=== PATIENT | female | born 1975 | race Two or more races ===

== ENCOUNTER → 2020-03-07 15:03 | Outpatient (CLI) | payer MEDICAID, SELFPAY ==
--- NOTE | 2020-03-07 15:03 | MM_ITS ---
PROCEDURE: MM DIG SCREENING MAMM BI W/CAD Digital Breast Tomosynthesis Included CLINICAL INDICATION: screening There is no personal or family history of breast cancer. COMPARISON: This is a baseline exam, patient without complaints TECHNIQUE: Standard CC and MLO images and 3D Tomosynthesis was obtained. R2 CAD reviewed. FINDINGS: Moderately prominent fibroglandular densities are seen in the central portions of both breasts. There is a possible asymmetric nodular density upper-outer quadrant right breast only definitely appreciated on wilmar images. Recommend the patient return for spot compression views and ultrasound. A CAD marking deep within the right breast the CC view only was reviewed and shows no abnormality on the wilmar images. There are no suspicious microcalcifications. IMPRESSION: Moderate diffuse breast density with possible asymmetric lesion right breast BI-RAD Category: 0 Need Additional Imaging Evaluation FOLLOW-UP: IMM Immediate Follow-up Recommended (A letter has been sent to the patient regarding results of the study.) Dictated by: Dr. Norris Alejandro MD 03/08/2020 12:30 Dr. Norris Alejandro MD in [place] 03/08/2020 12:30
== END ==
PROVIDERS: PCP Emergency Medicine; Visit Provider Emergency Medicine
DX: Z12.31 Encounter for screening mammogram for malignant neoplasm of breast (principal)
CPT/HCPCS: 77063; 77067

== ENCOUNTER → 2020-03-20 13:50 | Outpatient (CLI) | payer MEDICAID, SELFPAY ==
--- NOTE | 2020-03-20 13:50 | US_ITS ---
PROCEDURE: US BREAST RT COMPLETE CLINICAL INDICATION: abn mamm COMPARISON: No exams were available for comparison FINDINGS: There are several small benign-appearing hypoechoic cystic lesions 1 at the 2 o'clock position near the nipple measuring 0.5 by 0.5 x 0.4 cm. There is a 2nd hypoechoic cystic lesion at the 9 o'clock position outer breast measuring 0.6 by 0.6 x 0.3 cm. There is a smaller hypoechoic cystic lesion at 9 o'clock position outer breast measuring 0.6 x 0.3 0.5 cm. However there is a solid lesion outer breast 10 o'clock position measuring 0.8 x 0.6 x 0.8 cm. This has rather homogeneous internal echogenicity but is almost as tall as wide and shows slight lobulation of the borders. IMPRESSION: Multiple benign-appearing cystic lesions however there is a solid lesion 10 o'clock position which corresponds in size and location to the nodular density seen on the recent mammogram and follow-up problem solving views and in view of the lobulation of the borders and appearance suggesting almost as tall as wide would recommend follow-up biopsy likely with ultrasound-guided technique. Dictated by: Dr. Norris Alejandro MD 03/25/2020 11:17 Dr. Norris Alejandro MD in [place] 03/25/2020 11:17
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
--- NOTE | 2020-03-20 13:50 | MM_ITS ---
PROCEDURE: MM DIG?MAMM DX?UNILAT?RT CAD Digital Breast?Tomosynthesis Included ?? CLINICAL INDICATION:?abn mamm ? COMPARISON: MG MM DIG SCREENING?MAMM BI W/CAD from 03/07/2020 US?US BREAST?RT COMPLETE from 03/20/2020 ?? TECHNIQUE: Below and CC views were obtained and 90 degree lateral view ?? FINDINGS: ?? The nodular density seen on recent mammogram is again noted not press out the spot views. This shows fairly well-defined borders measures approximately 1 cm in diameter. Ultrasound performed the same date shows a?hypoechoic lesion almost as tall as wide slight?lobulation of the borders. There is fairly homogeneous internal echogenicity. This likely is a?fibroadenoma however in view of its measurements being almost as tall as wide in slight?lobulation of the borders I would recommend biopsy likely with ultrasound guidance. IMPRESSION: Persistent nodule with slightly suspicious findings on ultrasound BI-RAD Category: 4 Suspicious Abnormality - Biopsy Considered FOLLOW-UP: BIO Biopsy Recommended ?? (A letter has been sent to the patient regarding results of the study.) ?? Dictated by: Dr. Norris Alejandro MD 03/25/2020 11:06 Dr. Norris Alejandro MD in?[place] 03/25/2020 11:06 DONA
== END ==
PROVIDERS: PCP Emergency Medicine; Visit Provider Emergency Medicine
DX: R92.8 Other abnormal and inconclusive findings on diagnostic imaging of breast (principal)
CPT/HCPCS: 76641; 77061; 77065; G0279

== ENCOUNTER → 2020-03-27 14:06 | Outpatient (CLI) | payer MEDICAID, SELFPAY ==
--- NOTE | 2020-03-27 14:06 | MR_ITS ---
PROCEDURE: MR CERVICAL SPINE WO CON ((3D volume MRI myelogram image set included) Referring Doctor: Yash Matt Patient Age:44Y CLINICAL INDICATION: neck pain Fall 1 year ago with neck and right arm pain. COMPARISON: No exams were available for comparison TECHNIQUE: Standard multiplanar multiecho sequences are performed without contrast. 3-D MIP and myelographic images are also rendered and reviewed 3D volume MRI myelogram image set included FINDINGS: Cranial cervical junction appears satisfactory. Cervical cord normal in caliber and signal but generous volume underlying osseous cervical canal and C2/3, C3/4, C4/5 disc intact with no significant findings at this level. Only question scant early uncovertebral joint hypertrophy to the left at C3/4-C4/5 level-negligible. The neural foramen remain widely patent at these levels. C5/6 and C6/7 with early degenerative disc changes and cervical spondylosis but slight disc space narrowing at each level with mild diffuse posterior osteophytic ridging. The disc osteophyte features however all are minimal and only slightly indent the thecal sac at both levels but of anterior marginal osteophytes at these levels more evident. In regards to right-sided pain of no a prominent neural foraminal encroachment nor disc herniation. Only perhaps scant spur spurring to the right C6/7. Unimpressive . May be some scant degenerative facet changes but these are unimpressive as well 3D MR myelogram image set shows generous volume thecal sac and cervical spinal canal. No significant epidural indentation upon thecal sac. There is overall good filling of nerve roots throughout.. Tiny perineural most of the right C7/T1 and less evident at C6/7, C5/6 Incidental note probable small right thyroid nodule 5-6 mm size the axial T2 weighted image IMPRESSION: No prominent findings C-spine. Only minor observations. Near negative the MRI C-spine. . Only hint of scant very early developing-cervical spondylosis C5/6 and C6/7. Features do not impinge upon the spinal canal..-only scant barely evident foraminal encroachment to the right C6/7 doubtful significance of significance . Suggestion new mild bilateral facet arthropathy otherwise. Dictated by: Calin Castle MD 03/31/2020 17:15 Calin Castle MD in [place] 03/31/2020 17:15
--- NOTE | 2020-03-27 14:06 | MR_ITS ---
PROCEDURE: MR LUMBAR SPINE WO CON (3D volume rendering myelogram image set included) Referring Doctor: Yash Matt Patient Age:44Y CLINICAL INDICATION: back pain Low back pain fell down stairs 1 years ago. But no prior exams COMPARISON: No previous lumbar studies MR MR CERVICAL SPINE WO CON from 03/27/2020 TECHNIQUE: Standard multiplanar multiecho sequences are performed without contrast. 3-D MIP and myelographic images are also rendered and reviewed 3D volume rendering myelogram image set included FINDINGS: Hypertrophy-are intact there is no good evidence of compression fracture L5/S1.: Degenerative disc space narrowing with minimal disc bulge/with scant spurring head injury of right and left foramen. Mild foraminal encroachment but mild facet hypertrophy, arthropathy L4/5.: Disc spaces fairly well maintained with only borderline disc space narrowing to the right... Mild asymmetric disc bulge which becomes most evident at and lateral to the right foramen. Mild right foraminal encroachment. Subtle effacement of thecal sac anteriorly to the right a...; Mild/moderate facet arthropathy, hypertrophy bilateral the. Suspect minor reactive endplate changes and possible Schmorl's node on to the right at L4/5 L3/4. Disc intact unremarkable scant facet arthropathy. L2/3 disc intact unremarkable neural foramen widely patent L1/2 disc intact well hydrated unremarkable with neural foramen widely patent T12/L1 disc intact unremarkable. Conus ends appropriately at L1 . No additional observations but 3D MR myelogram image set shows no prominent findings but shows only scant epidural indentation to the right at L4/5 the IMPRESSION: mild degenerative changes with no prominent findings lumbar spine No disc herniation; no good evidence of compression fracture.. The L4/5: Mild asymmetric disc bulge to the right at L4/5. Moderate question right foramen.. Mild facet hypertrophy.. Suggestion however reactive endplate changes to the right at L4/5.. Questionable small Schmorl's node inferior to the right at L4 inferior endplate L5/S1. Degenerative disc space narrowing, with minor foraminal encroachment/minor foraminal disc bulge the The Dictated by: Calin Castle MD 03/30/2020 18:07 Calin Castle MD in [place] 03/30/2020 18:07
== END ==
PROVIDERS: PCP Emergency Medicine; Visit Provider Emergency Medicine
DX: M54.2 Cervicalgia (principal); M54.9 Dorsalgia, unspecified; M54.5 Low back pain
CPT/HCPCS: 72141; 72148; 76376

== ENCOUNTER → 2020-04-03 10:01 | Outpatient (CLI) | payer MEDICAID, SELFPAY ==
--- NOTE | 2020-04-03 | MM_ITS ---
PROCEDURE: US BIOPSY BREAST RT CLINICAL INDICATION: abn mamm Suspicious right breast nodule COMPARISON: MG MM DIG SCREENING MAMM BI W/CAD from 03/07/2020 MG MM DIG MAMM DX UNILAT RT CAD from 03/20/2020 US US BREAST RT COMPLETE from 03/20/2020 MG MM CLIP PLACEMENT RT from 04/03/2020 FINDINGS: Technique: Following obtaining informed consent and time-out procedure under aseptic conditions and local anesthesia with 1 percent buffered lidocaine, with sonographic guidance and deeper anesthesia with lidocaine mixed with epinephrine, mammotome E needle was inserted into to the suspicious nodule at 10 o'clock in the right breast and multiple mammotome biopsies were obtained. Sterile stainless steel clip was then placed. The patient tolerated the procedure well without evidence of immediate complications and left radiology suite in stable condition. Mammogram clip placement: Post biopsy changes are present in the upper outer aspect of the right breast at the region of the previously noted nodule with clip present at this area. The nodule is much smaller. Pathology: Fibroepithelial lesion which may represent a fibroadenoma. Negative for atypia or malignancy. IMPRESSION: Successful sonographic guided mammotome biopsy of the right breast showing benign findings. Recommend six-month mammographic and sonographic follow-up per routine biopsy protocol. Dictated by: Otis Jhaveri MD 04/05/2020 09:35 Otis Jhaveri MD in [place] 04/05/2020 09:35
--- NOTE | 2020-04-03 10:06 | XR_ITS ---
PROCEDURE: XR KNEE RT 4V CLINICAL INDICATION: right knee pain COMPARISON: No exams were available for comparison FINDINGS: No fracture or dislocation. No lytic or blastic change. There is normal mineralization. Status post ACL repair. There is slight decrease in the joint space medially and at the patellofemoral with minimal spurring of the posterior patella Other findings:None. IMPRESSION: Prior ACL repair with mild osteoarthritic changes Dictated by: Otis Jhaveri MD 04/03/2020 18:24 Otis Jhaveri MD in [place] 04/03/2020 18:24
== END ==
PROVIDERS: PCP Emergency Medicine; Visit Provider Emergency Medicine
DX: R92.8 Other abnormal and inconclusive findings on diagnostic imaging of breast (principal); M25.561 Pain in right knee; N63.11 Unspecified lump in the right breast, upper outer quadrant
CPT/HCPCS: 19083; 73564; 77065; C2618

== ENCOUNTER → 2020-04-15 12:55 | Outpatient (CLI) | payer MEDICAID, SELFPAY ==
--- NOTE | 2020-04-15 12:55 | MR_ITS ---
PROCEDURE: MR KNEE RT WO CON CLINICAL INDICATION: right knee pain; evaluate for a meniscal tear prior acl reconstruction. entire knee swelling and instability. lateral and posterior knee pain. prior x-ray 04-03-20 COMPARISON: CR XR KNEE RT 4V from 04/03/2020 TECHNIQUE: Routine multiplanar multi echo sequences are performed without gadolinium enhancement. FINDINGS: Status post prior ACL repair. The graft peers intact. The PCL has an unremarkable appearance as does the medial collateral ligament and lateral ligamentous complex. Patellar tendon and quadriceps tendon are unremarkable. There are tricompartmental osteoarthritic changes. The lateral meniscus has an unremarkable appearance. Anterior horn and posterior horn of the medial meniscus is smaller than expected .. There is a nondisplaced longitudinal tear involving the posterior horn of the medial meniscus. The patellar cartilage is preserved. No significant knee joint effusion. IMPRESSION: 1. Status post ACL repair. No evidence of cruciate ligament tear. 2. Nondisplaced longitudinal tear posterior horn medial meniscus. The medial meniscus is smaller than expected both anteriorly and posteriorly. 3. Mild tricompartmental osteoarthritic change. Dictated by: Otis Jhaveri MD 04/16/2020 11:32 Otis Jhaveri MD in [place] 04/16/2020 11:32
== END ==
PROVIDERS: PCP Emergency Medicine; Visit Provider Orthopaedic Surgery
DX: M25.561 Pain in right knee (principal); G89.29 Other chronic pain
CPT/HCPCS: 73721

== ENCOUNTER 2020-05-03 15:00 | Outpatient (RCR) | payer MEDICAID, SELFPAY ==
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
== END 2020-05-03 15:05 | disposition home or self-care (01) ==
LOC: PT 15:00
PROVIDERS: PCP Emergency Medicine; Visit Provider Emergency Medicine
DX: M54.2 Cervicalgia (principal)
CPT/HCPCS: 97010; 97012; 97014; 97110; 97140; 97163; 97164; G0283

== ENCOUNTER → 2020-06-19 16:40 | Outpatient (CLI) | payer MEDICAID, SELFPAY ==
[2020-06-19 18:51] LABS: Amphetamine/Metha Screen,Urine Negative ng/ml (<1000)
[2020-06-19 18:52] LABS: Barbiturates Screen,Urine Negative ng/ml (<200); Benzodiazepines Screen,Urine Negative ng/ml (<200)
[2020-06-19 18:53] LABS: Cannabinoid Screen,Urine Positive ng/ml (<50)
[2020-06-19 19:34] LABS: Cocaine Screen,Urine Negative ng/ml (<300); Methadone Screen,Urine Negative ng/ml (<300)
[2020-06-19 19:35] LABS: Opiate Screen,Urine Negative ng/ml (<300)
[2020-06-19 19:36] LABS: Phencyclidine Screen,Urine Negative ng/ml (<25)
== END ==
PROVIDERS: Visit Provider Emergency Medicine
DX: M51.36 Other intervertebral disc degeneration, lumbar region (principal)
CPT/HCPCS: 80305

== ENCOUNTER → 2020-07-11 14:46 | Outpatient (POV) | payer MEDICAID, SELFPAY ==
[2020-07-11 15:12] VITALS: BP 121/74; PULSE 65; RESP 18; TEMP 36.3; O2SAT 98; BMI 26.4
--- NOTE | 2020-07-11 16:32 | HMH.PMCON ---
Assessment and Plan (1) DDD (degenerative disc disease), lumbar Status: Chronic Category: Medical Code(s): M51.36 - Other intervertebral disc degeneration, lumbar region - Assessment and plan all Dx Assessment and Plan for all problems:: We will schedule the patient for an L4-L5 lumbar epidural steroid injection. I do believe given her symptomology that this will be beneficial for her. I will follow-up with her after this reassess her symptoms at that time she has been instructed to call our office if she has any issues prior to her next appointment. Dr. Lee has reviewed this note and agrees with this plan of care. This note was dictated using voice recognition software and may contain errors or omissions HPI - Data of Consult Consult date: 07/11/20 Requesting Physician: Kateryna Johnson APRN Primary Care Provider: Yash Matt MD - Consult Narrative Reason for consult: Back pain, leg pain History of present illness: Ms. Orellana is a 45 year old female who presents today for consultation regards to her low back and leg pain. Patient has had pain for quite some time she rates it today a 6 out of 10. Patient has tried and failed medication management. She is interested in other ways to treat her pain. Patient does have an MRI showing degenerative disc disease along with disc bulge. Patient has issues with her low back and bilateral lower extremities. Patient and I had a long discussion in regards to injective therapy she is agreeable. She is not on any anticoagulation therapy. CC: Kateryna Johnson APRN [facility] History I have reviewed the patient's past medical history: Yes Medical History: Reports:: Depression, Gastroesophageal Reflux Disease(GERD) Denies:: Cancer, Diabetes Mellitus Type 1, Diabetes Mellitus Type 2, MRSA *Have you ever received a pneumonia vaccine?: Yes *Have you received a flu vaccine this season?: Yes Other Medical History: Reports: Arthritis, Other Laterality Cases: Right: Arthroscopy Knee Other Surgeries: Yes: Tubal Ligation, Other Amputation: No Fractures: No - *Social History Smoking Status: Current every day smoker Tobacco Type: e-cigarettes # Packs/Day (cigarettes): 1 Alcohol Intake: never Alcohol Intake Frequency:: 3 or more drinks per day Substance Use Type: former substance user, methamphetamine *Occupational Status:: other Housing: house Household Members: other *Travel in the last 8 weeks: None - Psychiatric History Pschychiatric History:: Reports:: Depression Family Hx:: Unable to obtain Review of Systems - Review of Systems ROS General: no recent weight change, no fever, no sleep disturbances Respiratory: no cough, no shortness of air, no recurring pulmonary infections Cardiovascular/Peripheral Vascular: No chest pain, No palpitations, no edema, no shortness of breath. Gastrointestinal: no new onset incontinence, normal bowel movements reported Genitourinary: no new onset incontinence Musculoskeletal: Back pain, leg pain Psychiatric: normal mood/ affect Neurological: [denies new onset weakness in extremities], [denies new onset balance issues] Meds Home Medications Medication Instructions Recorded Confirmed Type diclofenac sodium 1 % topical gel 2 g TOPICAL QID #100 g 02/16/20 06/19/20 Rx lidocaine 5 % topical patch 1 patch TOPICAL DAILY #30 each 02/16/20 06/19/20 Rx trazodone 50 mg tablet 50 mg PO HS PRN #90 tab 03/11/20 06/19/20 Rx cetirizine 10 mg tablet 10 mg PO DAILY #90 tab 06/05/20 06/19/20 Rx fluoxetine 20 mg capsule 20 mg PO BID #180 cap 06/05/20 06/19/20 Rx fluticasone propionate 50 1 spray INTRANASAL DAILY #16 g 06/05/20 06/19/20 Rx mcg/actuation nasal spray,suspension omeprazole 20 mg delayed 20 mg PO DAILY #90 tab 06/05/20 06/19/20 Rx release,disintegrating tablet gabapentin 800 mg tablet 800 mg PO TID #90 tab 06/19/20 06/19/20 Rx hydrocodone 5 mg-acetaminophen 325 1 tab PO BID PRN #60 tab 06/19/20 06/19/20 Rx mg t
== END ==
PROVIDERS: PCP Emergency Medicine; Visit Provider Clinical Nurse Specialist Family Health
DX: M51.36 Other intervertebral disc degeneration, lumbar region (principal)
CPT/HCPCS: 99202; G0463

== ENCOUNTER 2020-07-26 09:00 | Outpatient (RCR) | payer MEDICAID, SELFPAY ==
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
== END 2020-07-26 09:05 | disposition home or self-care (01) ==
LOC: PT 09:00
PROVIDERS: PCP Emergency Medicine; Visit Provider Emergency Medicine
DX: M47.812 Spondylosis without myelopathy or radiculopathy, cervical region (principal)
CPT/HCPCS: 97010; 97012; 97014; 97035; 97110; 97140; 97163; G0283

== ENCOUNTER 2020-07-26 09:30 | Outpatient (RCR) | payer MEDICAID, SELFPAY ==
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
== END 2020-07-26 09:35 | disposition home or self-care (01) ==
LOC: PT 09:30
PROVIDERS: PCP Emergency Medicine; Visit Provider Emergency Medicine
DX: M54.5 Low back pain (principal); M54.9 Dorsalgia, unspecified
CPT/HCPCS: 97163

== ENCOUNTER 2020-08-02 11:22 | Day surgery (SDC) | payer MEDICAID, SELFPAY ==
[2020-08-02 11:59] VITALS: BP 148/82; PULSE 66; RESP 18; TEMP 36.6; O2SAT 98; BMI 27.8
[2020-08-02 12:25] VITALS: BP 122/78; PULSE 88; RESP 18; O2SAT 98
[2020-08-02 12:27] VITALS: BP 125/78; PULSE 89; RESP 18; O2SAT 99
--- NOTE | 2020-08-02 12:29 | HMH.PMPROC ---
- Procedure Date: 08/02/20 Time: 12:29 Anesthesiologist:: Jean-Claude Lee MD Complications:: None Pre-procedure Diagnosis:: Degenerative disc disease of lumbar spine with lumbar radiculopathy symptoms Post-procedure Diagnosis:: Same Indications for Procedure:: This patient is a pleasant 45-year-old white female who we are treating for low back pain with lumbar radiculopathy symptoms. She has increasing pain in her back rating down her legs. Will do lumbar epidural steroid injection today to see if this helps with her pain symptoms. Procedure Details:: Informed consent was obtained and the risk and benefits of the procedure was explained to the patient. The patient was taken to the procedure room. The patient was placed prone on the procedure table. The patient was prepped and draped in sterile fashion. C-arm fluoroscopy was used to view the lumbar spine. Skin and subcutaneous tissues were anesthetized using lidocaine. I placed an 18-gauge epidural needle and advanced into the L4-L5 interspace using fluoroscopic guidance and [id number] to air. After confirmation of needle placement in the epidural space with dye I injected 2 mL of lidocaine 1.5% with Depo-Medrol 80 mg. Patient tolerated the procedure well with no complications. Plan and Disposition:: We will follow-up with her in 2 weeks. Will reevaluate symptoms at that time.
[2020-08-02 12:35] VITALS: BP 169/91; PULSE 57; RESP 20; O2SAT 98
== END 2020-08-02 12:40 | disposition home or self-care (01) ==
LOC: SC.PAINP 11:23
PROVIDERS: PCP Emergency Medicine; Visit Provider Anesthesiology
DX: M51.16 Intervertebral disc disorders with radiculopathy, lumbar region (principal); K21.9 Gastro-esophageal reflux disease without esophagitis; M19.90 Unspecified osteoarthritis, unspecified site; F32.9 Major depressive disorder, single episode, unspecified; Z88.2 Allergy status to sulfonamides
CPT/HCPCS: 62323; J1040; Q9966

== ENCOUNTER → 2020-08-13 17:19 | Outpatient (CLI) | payer MEDICAID, SELFPAY ==
[2020-08-13 18:21] LABS: Amphetamine/Metha Screen,Urine Negative ng/ml (<1000); Benzodiazepines Screen,Urine Negative ng/ml (<200)
[2020-08-13 18:22] LABS: Barbiturates Screen,Urine Negative ng/ml (<200)
[2020-08-13 18:23] LABS: Cannabinoid Screen,Urine Negative ng/ml (<50); Cocaine Screen,Urine Negative ng/ml (<300)
[2020-08-13 18:24] LABS: Methadone Screen,Urine Negative ng/ml (<300)
[2020-08-13 18:25] LABS: Opiate Screen,Urine Positive ng/ml (<300); Phencyclidine Screen,Urine Negative ng/ml (<25)
== END ==
PROVIDERS: Visit Provider Emergency Medicine
DX: M51.36 Other intervertebral disc degeneration, lumbar region (principal)
CPT/HCPCS: 80305

== ENCOUNTER → 2020-08-22 12:55 | Outpatient (POV) | payer MEDICAID, SELFPAY ==
[2020-08-22 13:09] VITALS: BP 124/70; PULSE 61; RESP 18; O2SAT 97; BMI 31.2
--- NOTE | 2020-08-22 13:25 | HMH.PAINSOAP ---
[facility] Pain Management SOAP Note Subjective:: Patient is a 45-year-old white female who presents today for follow-up after a lumbar epidural steroid injection. She has been treated for degenerative disc disease with lumbar radicular symptoms. Patient is complaining of low back pain bilaterally with radiation into her buttock and hips. It does go down into the right leg. She says her pain is worse at the right hip at this time. Her pain increases when she stands and walks and improves with sitting. She got 4 to 5 days of relief with her lumbar epidural steroid injection. Her pain has improved, however, she is still at a 5 out of 10. She does take Aleve and Zanaflex and continues with home stretching. She has undergone physical therapy in the past for greater than 6 weeks. She and her to palpation to her bilateral SI joints today. Review of Systems General: No recent weight changes, no fever, no sleep disturbances Respiratory: No cough, no shortness of air, no recurring pulmonary infections Cardiovascular/peripheral vascular: No chest pain, no palpitations, no edema, no shortness of breath Gastrointestinal: No new onset incontinence, normal bowel movements reported Genitourinary: No new onset incontinence Musculoskeletal: Low back pain with radiation into bilateral buttock and right hip and right leg Psychiatric: Normal mood/affect Neurological: [Denies weakness in extremities], [denies balance issues] Objective:: Physical exam General: Alert and oriented x3, no acute distress, pleasant and cooperative, [on room air] Lungs: Respirations even and unlabored, symmetrical chest expansion Eyes: PERRL Musculoskeletal: Flexion and extension of lumbar spine somewhat guarded secondary to pain, deep tendon reflexes normal, strength in upper and lower extremities [5/5], [abnormal gait noted] positive Harlan's test, positive distraction test, positive compression test Neurological: Speech clear, designer equal, no gross sensory deficit Assessment:: Degenerative disc disease lumbar spine with lumbar radiculopathy symptoms, sacroiliitis bilateral Plan:: Patient has gotten relief from her initial symptoms with the lumbar epidural steroid injection. She got 4 to 5 days of significant relief at about 80%, however, she does continue to have some pain. Her pain is worse with standing and walking. She is tender to palpation to her bilateral SI joints along with a positive Harlan's, compression, and distraction test today. We will schedule the patient for bilateral SI joint injections and see her back in the clinic afterwards to reevaluate her symptoms. She has been instructed to contact clinic if she has any concerns before her next appointment. Risks and benefits of the procedure have been explained to the patient. Patient would like to proceed with the procedure. Dr. Lee has reviewed this note and agrees with this plan of care. This note was dictated using voice recognition software and make contain errors or omissions. [facility] History I have reviewed the patient's past medical history: Yes Medical History: Reports:: Depression, Gastroesophageal Reflux Disease(GERD) Denies:: Cancer, Diabetes Mellitus Type 1, Diabetes Mellitus Type 2, MRSA, Seizures *Have you ever received a pneumonia vaccine?: No *Have you received a flu vaccine this season?: No Other Medical History: Reports: Arthritis, Other. Denies: Blood Transfusion Reaction Laterality Cases: Right: Arthroscopy Knee Other Surgeries: Yes: Tubal Ligation, Other Amputation: No Fractures: No - *Social History Smoking Status: Current every day smoker Tobacco Type: cigarettes # Packs/Day (cigarettes): 1 Alcohol Intake: never Alcohol Intake Frequency:: 3 or more drinks per day Substance Use Type: former substance user, methamphetamine *Occupational Status:: unemployed Housing: house Household Members: other *Travel in the last 8 weeks: None - Psychiatric History Pschychiatric Histo
== END ==
PROVIDERS: PCP Emergency Medicine; Visit Provider Clinical Nurse Specialist Family Health
DX: M51.16 Intervertebral disc disorders with radiculopathy, lumbar region (principal); M46.1 Sacroiliitis, not elsewhere classified
CPT/HCPCS: 99212; G0463

== ENCOUNTER 2020-08-30 13:37 | Day surgery (SDC) | payer MEDICAID, SELFPAY ==
[2020-08-30 13:50] VITALS: BP 115/59; PULSE 60; RESP 18; TEMP 36.7; O2SAT 99; BMI 27.8
[2020-08-30 13:59] VITALS: BP 140/71; PULSE 61; RESP 18; O2SAT 99
[2020-08-30 14:03] VITALS: BP 140/71; PULSE 62; RESP 18; O2SAT 99
--- NOTE | 2020-08-30 14:15 | P.PCN_ITS ---
- Procedure Date: 08/30/20 Time: 14:16 Anesthesiologist:: Jean-Claude Lee MD Complications:: None Pre-procedure Diagnosis:: Sacroiliitis Post-procedure Diagnosis:: Same Indications for Procedure:: Patient is a pleasant 45-year-old white female who we are treating for low back pain and bilateral hip pain. She did have lumbar epidural steroid injection which did not give her much relief of her pain symptoms. She does have positive SI joint compression test bilaterally she has a positive Harlan's test bilaterally. She has a positive distraction test bilaterally. She has a positive Christin test bilaterally. We will do bilateral SI joint injections today to see if this gives her relief of her pain symptoms. Procedure Details:: B/L SI joint injection under fluoroscopy Informed consent was obtained and the risks and benefits of the procedure was explained to the patient. The patient was taken to the procedure room and placed prone on the procedure table. The patient was prepped using ChloraPrep. The skin and subcutaneous tissues overlying the SI joints were anesthetized using lidocaine. I placed a 22-gauge needle first in the left SI joint and s econd in the right SI joint. Needle placement was confirmed with dye. After this we injected 5 mL bupivacaine 0.25% and Depo-Medrol 40 mg into each SI joint. Patient tolerated the procedure well with no complication. Plan and Disposition:: We will follow-up with her in 2 weeks. Will reevaluate her symptoms at that time.
[2020-08-30 14:27] VITALS: BP 124/58; PULSE 57; RESP 20; O2SAT 98
== END 2020-08-30 14:28 | disposition home or self-care (01) ==
LOC: SC.PAINP 13:39
PROVIDERS: PCP Emergency Medicine; Visit Provider Anesthesiology
DX: M46.1 Sacroiliitis, not elsewhere classified (principal); K21.9 Gastro-esophageal reflux disease without esophagitis; M19.90 Unspecified osteoarthritis, unspecified site; F32.9 Major depressive disorder, single episode, unspecified; Z72.0 Tobacco use; F41.9 Anxiety disorder, unspecified; Z88.2 Allergy status to sulfonamides
CPT/HCPCS: 27096; G0260; J1030; Q9966

== ENCOUNTER 2020-09-10 16:00 | Outpatient (RCR) | payer MEDICAID, SELFPAY ==
--- NOTE | 2020-08-28 14:43 | HMH.PTOPEV ---
PT Outpatient Evaluation Rehab PT Outpatient Evaluation Start: 08/28/20 14:14 Freq: Status: Active Protocol: Document 08/28/20 14:15 RYAN (Rec: 08/28/20 14:42 RYAN [id number]) Electronically Signed By Rodri Wolf, PT 08/28/20 14:15 Outpatient Therapy Subjective History Subjective History Pt reports h/o chronic LBP for ~5+ yrs. Pt reports this exacerbation started ~2 months ago, recent pain mngt injection 'just made me sore for 3 days', and reports being scheduled for another SI injection on 08/30/20. Pt reports reports lumbar region pain with referred pain into bilateral paraspinal mm., no radicular s/s reported. Chief Complaint Pain,Stiff,Weakness Symptom Type Ache,Sharp,Dull Symptoms Relieved By Rest/Positioning,Heat,OTC Meds ,Prescription Meds Symptoms Aggravated By Standing,Bending/Stooping, Physical Activity,Twisting, Walking,Lifting Prior Functional Limitations Lifting,Housework,Standing, Walking,Bending/Stooping Current Functional Limitations Lifting,Housework,Standing, Walking,Bending/Stooping Symptom Description Constant but Variable Level of pain today (0-10) 4 Pain scale - at its best (0-10) 4 Pain scale - at its worst (0-10) 9 Lumbopelvic Eval Posture Thoracic Spine Posture Standing Position Neutral Lumbar Spine Posture Standing Position Neutral Assistive device Assistive Devices None / NA Gait Observation General Gait Pattern Observation Antalgic Gait Palapation tenderness bilateral lumbar spinal tenderness Yes: 3/4 paraspinal tenderness Yes: 3/4 buttock tenderness Yes: 1-2/4 Lumbar/Sacral Palpation Findings Tenderness,Muscle Guarding Accessory Movement L-spine Vertebrae Accessory Movements Central P/A Mccoy that Elicit Symptoms L2 bilateral L3 bilateral L4 bilateral L5 bilateral Range of Motion Lumbar Spine Active Flexion Range of 0-45 Motion (degrees) Lumbar Spine Active Extension Range of 0-5 Motion (degrees) Left Lumbar Spine Lateral Flexion Active 0-10 Range of Motion (degrees) Right Lumbar Spine Lateral Flexion 0-15 Active Range of Motion (degrees) Lumbar Spine ROM Limitations Pain Manual Muscle Test Bi
== END 2020-09-10 16:05 | disposition home or self-care (01) ==
LOC: PT 16:00
PROVIDERS: PCP Emergency Medicine; Visit Provider Emergency Medicine
DX: M51.36 Other intervertebral disc degeneration, lumbar region (principal)
CPT/HCPCS: 97010; 97014; 97110; 97163; G0283

== ENCOUNTER → 2020-09-30 13:28 | Outpatient (POV) | payer MEDICAID, SELFPAY ==
[2020-09-30 13:33] VITALS: BP 134/72; PULSE 69; RESP 18; O2SAT 99; BMI 27.8
--- NOTE | 2020-09-30 14:08 | HMH.PAINSOAP ---
[facility] Pain Management SOAP Note Subjective:: Patient is a 45-year-old female who presents today for follow-up after bilateral SI joint injections. She is being treated for sacroiliitis bilaterally. Patient says that she got approximately 80% relief for 2 weeks. She does say she was in worse pain the first 2 to 3 days after the injection, however, she does say after the third day she began to feel relief. Her pain has returned, however. She rates her pain a 6 out of 10. She would like to undergo repeat bilateral SI injections. Patient and I did talk today about possible corner lock stabilization procedure in the future if she does get relief with bilateral SI injections. Patient is having pain in her low back area as well as into her bilateral hips. She has had a lumbar epidural steroid injection which did not give her any significant relief. She does have a positive Harlan's test along with a positive distraction and compression test today. She is tender to palpation to the area. She has tried and failed conservative therapies of physical therapy for more than 6 weeks and continues with home stretching and ice and heat therapies. Review of Systems General: No recent weight changes, no fever, no sleep disturbances Respiratory: No cough, no shortness of air, no recurring pulmonary infections Cardiovascular/peripheral vascular: No chest pain, no palpitations, no edema, no shortness of breath Gastrointestinal: No new onset incontinence, normal bowel movements reported Genitourinary: No new onset incontinence Musculoskeletal: Low back pain with radiation into bilateral hips Psychiatric: Normal mood/affect Neurological: [Denies weakness in extremities], [denies balance issues] Objective:: Physical exam General: Alert and oriented x3, no acute distress, pleasant and cooperative, [on room air] Lungs: Respirations even and unlabored, symmetrical chest expansion Eyes: PERRL Musculoskeletal: Flexion and extension of [] lumbar spine somewhat guarded secondary to pain, deep tendon reflexes normal, strength in upper and lower extremities [5/5], [abnormal gait noted], positive Harlan's test, positive compression test, positive distraction test Neurological: Speech clear, cloth finishing range operator equal, no gross sensory deficit Assessment:: Sacroiliitis bilateral Plan:: We will schedule the patient for repeat bilateral SI joint injections. Again, if she gets significant relief, she may be a corner lock candidate. We will see her back after her injections for reevaluation of symptoms. She was given [facility] educational information today. Risks and benefits of the procedure have been explained to the patient. Patient would like to proceed with the procedure. Possible side effects of corticosteroids have been discussed with the patient. Patient has been instructed to contact the clinic with any concerns before the next appointment. Dr. Lee has reviewed this note and agrees with this plan of care. This note was dictated using voice recognition software and make contain errors or omissions. [facility] History I have reviewed the patient's past medical history: Yes Medical History: Reports:: Depression, Gastroesophageal Reflux Disease(GERD) Denies:: Cancer, Diabetes Mellitus Type 1, Diabetes Mellitus Type 2, MRSA, Seizures *Have you ever received a pneumonia vaccine?: No *Have you received a flu vaccine this season?: No Other Medical History: Reports: Arthritis, Other. Denies: Blood Transfusion Reaction Laterality Cases: Right: Arthroscopy Knee Other Surgeries: Yes: Tubal Ligation, Other Amputation: No Fractures: No - *Social History Smoking Status: Never smoker Tobacco Type: cigarettes # Packs/Day (cigarettes): 1 Alcohol Intake: former Alcohol Intake Frequency:: 3 or more drinks per day Substance Use Type: former substance user, methamphetamine *Occupational Status:: unemployed Housing: house Household Members: other *Travel in the last 8 weeks:
--- NOTE | 2020-10-15 13:00 | PC.NURSE ---
Left Message of patient time change for injection on 10/15/20.
== END ==
PROVIDERS: PCP Emergency Medicine; Visit Provider Clinical Nurse Specialist Family Health
DX: M46.1 Sacroiliitis, not elsewhere classified (principal)
CPT/HCPCS: 99212; G0463

== ENCOUNTER → 2020-10-08 18:15 | Outpatient (CLI) | payer MEDICAID, SELFPAY ==
[2020-10-08 19:39] LABS: Amphetamine/Metha Screen,Urine Negative ng/ml (<1000); Barbiturates Screen,Urine Negative ng/ml (<200)
[2020-10-08 19:40] LABS: Benzodiazepines Screen,Urine Negative ng/ml (<200)
[2020-10-08 19:41] LABS: Cannabinoid Screen,Urine Negative ng/ml (<50); Cocaine Screen,Urine Negative ng/ml (<300)
[2020-10-08 19:42] LABS: Methadone Screen,Urine Negative ng/ml (<300); Opiate Screen,Urine Positive ng/ml (<300)
[2020-10-08 19:43] LABS: Phencyclidine Screen,Urine Negative ng/ml (<25)
== END ==
PROVIDERS: Visit Provider Emergency Medicine
DX: M51.36 Other intervertebral disc degeneration, lumbar region (principal)
CPT/HCPCS: 80305

== ENCOUNTER 2020-10-16 10:52 | Day surgery (SDC) | payer MEDICAID, SELFPAY ==
[2020-10-16 11:09] VITALS: BP 141/72; PULSE 62; RESP 18; TEMP 36.6; O2SAT 98; BMI 27.8
--- NOTE | 2020-10-16 12:02 | P.PCN_ITS ---
- Procedure Date: 10/16/20 Time: 12:11 Anesthesiologist:: Nany Wade MD Complications:: None Pre-procedure Diagnosis:: Sacroiliitis, chronic low back pain, bilateral hip pain Post-procedure Diagnosis:: Same Indications for Procedure:: Patient is a very pleasant 45-year-old white female who presents today with chronic low back pain and bilateral hip pain related to the above diagnosis. She has previously undergone bilateral SI joint injections in has experienced 80% pain relief for approximately 2 weeks. She would like to repeat undergo repeat injections today. She has tried and failed conservative treatment including oral pain medication and home stretching program for greater than 6 weeks. Plan for today is for the patient to undergo repeat bilateral SI joint injections under fluoroscopy. Procedure Details:: B/L SI joint injection under fluoroscopy Informed consent was obtained and the risks and benefits of the procedure was explained to the patient. The patient was taken to the procedure room and placed prone on the procedure table. The patient was prepped using ChloraPrep. The skin and subcutaneous tissues overlying the SI joints were anesthetized using lidocaine. I placed a 22-gauge needle first in the left SI joint and second in the right SI joint. Needle placement was confirmed with dye. After this we injected 5 mL bupivacaine 0.25% and Depo-Medrol 40 mg into each SI joint. Patient tolerated the procedure well with no complication. Plan and Disposition:: We will follow-up with this patient in 2 weeks. Will reevaluate pain symptoms at that time. The patient only receive very minimal or short-term pain relief with these injections we will further discuss the SI joint stabilization p rocedure next clinic visit.
[2020-10-16 12:17] VITALS: BP 148/76; PULSE 55; RESP 18; O2SAT 97
[2020-10-16 12:19] VITALS: BP 144/95; PULSE 56; RESP 18; O2SAT 96
[2020-10-16 12:40] VITALS: BP 150/93; PULSE 60; RESP 20; O2SAT 98
== END 2020-10-16 12:45 | disposition home or self-care (01) ==
LOC: SC.PAINP 10:54
PROVIDERS: PCP Emergency Medicine; Visit Provider Anesthesiology Pain Medicine
DX: M46.1 Sacroiliitis, not elsewhere classified (principal); M54.6 Pain in thoracic spine; G89.29 Other chronic pain; M25.551 Pain in right hip
CPT/HCPCS: 27096; G0260; J1030; Q9966

== ENCOUNTER → 2020-11-21 14:35 | Outpatient (POV) | payer MEDICAID, SELFPAY ==
[2020-11-21 15:00] VITALS: BP 131/81; PULSE 73; RESP 18; O2SAT 94; BMI 27.8
--- NOTE | 2020-11-21 16:32 | HMH.PAINSOAP ---
[facility] Pain Management SOAP Note Subjective:: Patient is a 45-year-old female who presents today for follow-up after bilateral SI joint injections. Patient was seen in my clinic on 10/16/2020. At that time, she did undergo injection therapy. She did have bilateral SI joint injections. Patient says that she got 2 weeks of relief. She got about 80% relief at that time. Her pain has returned. She has had injective therapy in the past for her SI joints and does get significant relief for about 2 weeks to 3 weeks. She is continue with home stretching. She also continue with anti-inflammatories and physical therapy for more than 6 weeks in the past patient's pain is a 4 out of 10 today. She would like to undergo repeat injections for her SI joints. She is tender to palpation to bilateral SI joints today. Review of Systems General: No recent weight changes, no fever, no sleep disturbances Respiratory: No cough, no shortness of air, no recurring pulmonary infections Cardiovascular/peripheral vascular: No chest pain, no palpitations, no edema, no shortness of breath Gastrointestinal: No new onset incontinence, normal bowel movements reported Genitourinary: No new onset incontinence Musculoskeletal: Low back pain with radiation into bilateral hip and buttock Psychiatric: [Normal mood/affect] Neurological: [Denies weakness in extremities], [denies balance issues] Objective:: Physical exam General: Alert and oriented x3, no acute distress, pleasant and cooperative, [on room air] Lungs: Respirations even and unlabored, symmetrical chest expansion Eyes: PERRL Musculoskeletal: Flexion and extension of [] lumbar [spine] somewhat guarded secondary to pain, strength in upper and lower extremities [5/5], [antalgic gait noted], positive Harlan's test, positive compression test, positive distraction test Neurological: Speech clear, [marbleizing machine tender equal], no gross sensory deficit Assessment:: Sacroiliitis?bilateral, low back pain Plan:: We will schedule patient for SI joint injections. Patient is in the past, getting 80% relief for up to 2 to 3 weeks. We will see her back in the clinic after her injections for reevaluation of symptoms. Risks and benefits of the procedure have been explained to the patient. Patient would like to proceed with the procedure. Possible side effects of corticosteroids have been discussed with the patient. Patient has been instructed to contact the clinic with any concerns before the next appointment. Dr. Lee has reviewed this note and agrees with this plan of care. This note was dictated using voice recognition software and make contain errors or omissions. [facility] History I have reviewed the patient's past medical history: Yes Medical History: Reports:: Depression, Gastroesophageal Reflux Disease(GERD) Denies:: Cancer, Diabetes Mellitus Type 1, Diabetes Mellitus Type 2, MRSA, Seizures *Have you ever received a pneumonia vaccine?: No *Have you received a flu vaccine this season?: No Other Medical History: Reports: Arthritis, Other. Denies: Blood Transfusion Reaction Laterality Cases: Right: Arthroscopy Knee Other Surgeries: Yes: Tubal Ligation, Other Amputation: No Fractures: No - *Social History Smoking Status: Current every day smoker Tobacco Type: cigarettes # Packs/Day (cigarettes): 1 Alcohol Intake: never Alcohol Intake Frequency:: 3 or more drinks per day Substance Use Type: former substance user, methamphetamine *Occupational Status:: unemployed Housing: house Household Members: other *Travel in the last 8 weeks: None - Psychiatric History Pschychiatric History:: Reports:: Depression Family Hx:: Unable to obtain
== END ==
PROVIDERS: PCP Emergency Medicine; Visit Provider Clinical Nurse Specialist Family Health
DX: M46.1 Sacroiliitis, not elsewhere classified (principal); M54.5 Low back pain
CPT/HCPCS: 99212; G0463

== ENCOUNTER → 2020-12-04 19:07 | Outpatient (CLI) | payer MEDICAID, SELFPAY ==
[2020-12-04 20:20] LABS: Amphetamine/Metha Screen,Urine Negative ng/ml (<1000)
[2020-12-04 20:21] LABS: Barbiturates Screen,Urine Negative ng/ml (<200); Benzodiazepines Screen,Urine Negative ng/ml (<200)
[2020-12-04 20:22] LABS: Cannabinoid Screen,Urine Positive ng/ml (<50)
[2020-12-04 20:23] LABS: Cocaine Screen,Urine Negative ng/ml (<300)
[2020-12-04 20:24] LABS: Methadone Screen,Urine Negative ng/ml (<300); Opiate Screen,Urine Positive ng/ml (<300)
[2020-12-04 20:25] LABS: Phencyclidine Screen,Urine Negative ng/ml (<25)
== END ==
PROVIDERS: Visit Provider Emergency Medicine
DX: Z79.899 Other long term (current) drug therapy (principal)
CPT/HCPCS: 80305

== ENCOUNTER 2020-12-06 11:15 | Day surgery (SDC) | payer MEDICAID, SELFPAY ==
[2020-12-06 11:24] VITALS: BP 101/64; PULSE 70; RESP 18; TEMP 36.4; O2SAT 98; BMI 27.8
[2020-12-06 11:54] VITALS: BP 109/63; PULSE 68; RESP 18; O2SAT 96
--- NOTE | 2020-12-06 11:54 | HMH.PMPROC ---
- Procedure Date: 12/06/20 Time: 11:54 Anesthesiologist:: Jean-Claude Lee MD Complications:: None Pre-procedure Diagnosis:: Sacroiliitis Post-procedure Diagnosis:: Same Indications for Procedure:: This patient is a pleasant 45-year-old female who we are treating for bilateral hip pain. She is tender over both SI joints. She has positive Harlan's test bilaterally. She has positive SI joint compression test bilaterally. She has a positive Christin test bilaterally. She has a positive distraction test bilaterally. We will plan on bilateral SI joint injections under fluoroscopy today to help with pain symptoms. Procedure Details:: B/L SI joint injection under fluoroscopy Informed consent was obtained and the risks and benefits of the procedure was explained to the patient. The patient was taken to the procedure room and placed prone on the procedure table. The patient was prepped using ChloraPrep. The skin and subcutaneous tissues overlying the SI joints were anesthetized using lidocaine. I placed a 22-gauge needle first in the left SI joint and second in the right SI joint. Needle placement was confirmed with dye. After this we injected 5 mL bupivacaine 0.25% and Depo-Medrol 40 mg into each SI joint. Patient tolerated the procedure well with no complication. Plan and Disposition:: We will follow-up with her in 2 weeks. Will reevaluate symptoms at that time.
[2020-12-06 11:55] VITALS: BP 112/86; PULSE 72; RESP 18; O2SAT 96
[2020-12-06 12:12] VITALS: BP 101/65; PULSE 61; RESP 20; O2SAT 98
== END 2020-12-06 12:13 | disposition home or self-care (01) ==
LOC: SC.PAINP 11:16
PROVIDERS: PCP Emergency Medicine; Visit Provider Anesthesiology
DX: M46.1 Sacroiliitis, not elsewhere classified (principal); K21.9 Gastro-esophageal reflux disease without esophagitis; M19.90 Unspecified osteoarthritis, unspecified site; F32.9 Major depressive disorder, single episode, unspecified; F41.9 Anxiety disorder, unspecified; Z88.2 Allergy status to sulfonamides; Z79.899 Other long term (current) drug therapy
CPT/HCPCS: 27096; G0260; J1030; Q9966

== ENCOUNTER → 2020-12-24 11:30 | Outpatient (POV) | payer MEDICAID, SELFPAY ==
[2020-12-24 11:45] VITALS: BP 150/99; PULSE 88; RESP 18; O2SAT 98; BMI 27.8
--- NOTE | 2020-12-24 11:59 | HMH.PAINSOAP ---
[facility] Pain Management SOAP Note Subjective:: Patient is a pleasant 45-year-old -[place] female who presents today for follow-up. She did undergo bilateral SI joint injections. She got significant relief 80% for about a week and a half. She reports to have had a fall, with return of pain. Patient says that she got in between 2 dogs that were fighting. She is noted to have a laceration to her right lower extremity, just above her ankle. She also has an area to her left steward. Patient does have photos of the area. She currently has bandages over the site. She denies any recent fever or drainage from the area. She did not go to the emergency room for fear that the animals would be taken from her. The patient says that her dog is typically very docile and is well mannered. Patient did not contact her primary care provider. The patient's pain is a 5 out of 10 to bilateral low back and bilateral buttock and hips. She does say that the injections gave her relief to her neck as well. She and I have discussed corner lock in the past, however, the patient says that if she undergoes corner lock, she will not continue to get relief to the neck as well. She has tried physical therapy for greater than 6 weeks and continues with home stretching. She is also taken anti-inflammatories in the past. She does take Wann as well as gabapentin prescribed by Dr. Matt. Patient's pain is worse with standing and walking and does improve somewhat with sitting. Review of Systems General: No recent weight changes, no fever, no sleep disturbances Respiratory: No cough, no shortness of air, no recurring pulmonary infections Cardiovascular/peripheral vascular: No chest pain, no palpitations, no edema, no shortness of breath Gastrointestinal: No new onset incontinence, normal bowel movements reported Genitourinary: No new onset incontinence Musculoskeletal: Low back pain with radiation into bilateral buttock, bilateral hips, and lower extremities, chronic neck pain Psychiatric: [Normal mood/affect] Neurological: [Denies weakness in extremities], [denies balance issues] Objective:: Physical exam General: Alert and oriented x3, no acute distress, pleasant and cooperative, [on room air] Lungs: Respirations even and unlabored, symmetrical chest expansion Eyes: PERRL Musculoskeletal: Flexion and extension of [spine] somewhat guarded secondary to pain, strength in upper and lower extremities [5/5], [antalgic gait noted], positive Harlan's test, positive compression test, positive distraction test, positive Thomas's test Neurological: Speech clear, [traffic control flagger equal], no gross sensory deficit Assessment:: Sacroiliitis bilateral, chronic neck pain Plan:: The patient and I have discussed corner lock as well as RFA to her bilateral SI joints. She gets relief with the SI injections to her neck as well. She feels the steroids give her significant relief of all of her pain to her spine. We did discuss that injective therapy can be performed to the neck as well if she does undergo corner lock. She would like to proceed with injective therapy once again to bilateral SI joints. Given the patient's laceration to her leg, she has been advised she will need to seek treatment to this area either by her primary care provider or emergency room. The laceration to the leg via photos appears significant. She denies having any fever, nausea, vomiting, diarrhea. She says she will follow up with her primary care provider regarding the dog bite to the left steward area. If the patient does get treatment and is cleared by her primary care provider, we can proceed with the bilateral SI injections. She does understand, however, if she is on antibiotic therapy or corticosteroids we will have to postpone the injection. Possible side effects of corticosteroids have been discussed with the patient. Risks and benefits of the procedure have been explained to the patient. Juma
== END ==
PROVIDERS: PCP Emergency Medicine; Visit Provider Clinical Nurse Specialist Family Health
DX: M46.1 Sacroiliitis, not elsewhere classified (principal); M54.2 Cervicalgia; G89.29 Other chronic pain
CPT/HCPCS: 99212; G0463

== ENCOUNTER → 2021-01-16 14:41 | Outpatient (POV) | payer MEDICAID, SELFPAY ==
[2021-01-16 14:57] VITALS: BP 99/77; PULSE 65; RESP 18; O2SAT 97; BMI 27.8
--- NOTE | 2021-01-16 15:12 | HMH.PAINSOAP ---
[facility] Pain Management SOAP Note Subjective:: Patient is a 45-year-old female who presents today. Patient with bilateral SI joint injections and was denied by her insurance. Patient has had 3 rounds of bilateral SI injections. She continues to have significant pain to her low back, bilateral buttock, bilateral hip and groin area. The pain is worse with standing and walking. Patient has tried physical therapy for more than 6 weeks and did run out of qualified days per her insurance with physical therapy. She got minimal relief during physical therapy. She has also tried anti-inflammatories and does take oral medications for pain management. The patient does have a positive Parker's test, thigh thrust test, compression test, and Gaenslen's test. She also has a positive Christin test and positive Thomas's test. The patient and I did discuss RFA versus corner lock procedure at last visit, however, she wanted to proceed with injective therapy once more before proceeding with any further interventional therapies. Unfortunately, the patient was denied by her insurance. According to the insurance company, the patient was not and an active exercise program. Patient has had physical therapy for more than 6 weeks and continues with home stretching. She does rate her pain at a 6 out of 10. She uses ice and heat therapies as well. Review of Systems General: No recent weight changes, no fever, no sleep disturbances Respiratory: No cough, no shortness of air, no recurring pulmonary infections Cardiovascular/peripheral vascular: No chest pain, no palpitations, no edema, no shortness of breath Gastrointestinal: No new onset incontinence, normal bowel movements reported Genitourinary: No new onset incontinence Musculoskeletal: Low back pain with radiation into bilateral buttock, hip, groin worse with standing and walking Psychiatric: [Normal mood/affect] Neurological: [Denies weakness in extremities], [denies balance issues] Objective:: Physical exam General: Alert and oriented x3, no acute distress, pleasant and cooperative Lungs: Respirations even and unlabored, symmetrical chest expansion Eyes: PERRL Musculoskeletal: Flexion and extension of lumbar [spine] somewhat guarded secondary to pain, [antalgic gait noted], positive thigh thrust, positive compression test, positive Christin test, positive Gaenslen's test, positive Parker's test, positive Thomas's test Neurological: Speech clear, no gross sensory deficit Assessment:: Bilateral sacroiliitis, low back pain Plan:: Patient is a 45-year-old female presenting today due to denial letter from her insurance company. We scheduled patient for bilateral SI joint injections. She was denied by her insurance. Unfortunately we will not be able to seek approval for repeat injection for 6 weeks. Patient I discussed taking prednisone for 5 days to see if this helps with the short-term pain until we can get her scheduled for the injections. She is uncertain that she wants to proceed with the corner lock or RFA. She has tried and failed conservative therapies of physical therapy for more than 6 weeks along with continued home stretching. She has tried anti-inflammatories as well as 3 rounds of bilateral SI injections for which she got at least 80% relief. She does get relief for 3 to 4 weeks. We will give patient prednisone 20 mg 1 tablet p.o. twice daily for 5 days. We will see her back in 1 month to possibly schedule repeat injections. Patient has been instructed to contact the clinic with any concerns before the next appointment. Dr. Lee has reviewed this note and agrees with this plan of care. This note was dictated using voice recognition software and make contain errors or omissions. [facility] History I have reviewed the patient's past medical history: Yes Medical History: Reports:: Depression, Gastroesophageal Reflux Disease(GERD) Denies:: Cancer, Diabetes Mellitus Type 1, Diabetes M
== END ==
PROVIDERS: Visit Provider Clinical Nurse Specialist Family Health
DX: M46.1 Sacroiliitis, not elsewhere classified (principal); M54.50 Low back pain, unspecified
CPT/HCPCS: 99212; G0463

== ENCOUNTER → 2021-02-03 21:22 | Outpatient (CLI) | payer MEDICAID, SELFPAY ==
[2021-02-03 22:40] LABS: Amphetamine/Metha Screen,Urine Negative ng/ml (<1000)
[2021-02-03 22:41] LABS: Barbiturates Screen,Urine Negative ng/ml (<200); Benzodiazepines Screen,Urine Negative ng/ml (<200)
[2021-02-03 22:42] LABS: Cannabinoid Screen,Urine Positive ng/ml (<50)
[2021-02-03 22:43] LABS: Cocaine Screen,Urine Negative ng/ml (<300)
[2021-02-03 22:44] LABS: Methadone Screen,Urine Negative ng/ml (<300)
[2021-02-03 22:45] LABS: Opiate Screen,Urine Positive ng/ml (<300)
[2021-02-03 22:47] LABS: Phencyclidine Screen,Urine Negative ng/ml (<25)
== END ==
PROVIDERS: Visit Provider Emergency Medicine
DX: Z79.899 Other long term (current) drug therapy (principal)
CPT/HCPCS: 80305

== ENCOUNTER → 2021-02-27 14:57 | Outpatient (POV) | payer MEDICAID, SELFPAY ==
[2021-02-27 15:06] VITALS: BP 124/68; PULSE 80; RESP 18; O2SAT 96; BMI 27.2
--- NOTE | 2021-02-27 15:18 | HMH.PAINSOAP ---
[facility] Pain Management SOAP Note Subjective:: Patient is a pleasant 45-year-old who is here today for follow-up. Patient is currently being treated for bilateral sacroiliitis. Patient has had 3 rounds of bilateral SI injections that provided her about 80 to 90% relief. However, this has not lasted her. We have tried to schedule her for another bilateral injection but insurance has denied her. Patient has tried and failed conservative therapies such as oral medication, physical therapy, and at home exercises for greater than 6 weeks. Patient has positive Harlan, positive meng's, positive compression and distraction test. She denies any side effects from any of these medications. She denies any changes to the location and type of pain. She rates her pain as 5 out of 10 today. Patient is also being managed with gabapentin 800 mg 3 times a day and [place]me 10/325 mg 3 times a day that is prescribed by Dr. Matt. Liza number is [phone] with an active morphine equivalent of 30. Review of Systems General: No recent weight changes, no fever, no sleep disturbances Respiratory: No cough, no shortness of air, no recurring pulmonary infections Cardiovascular/peripheral vascular: No chest pain, no palpitations, no edema, no shortness of breath Gastrointestinal: No new onset incontinence, normal bowel movements reported Genitourinary: No new onset incontinence Musculoskeletal: Bilateral hip pain Psychiatric: [Normal mood/affect] Neurological: [Denies weakness in extremities], [denies balance issues] Objective:: Physical exam General: Alert and oriented x3, no acute distress, pleasant and cooperative Lungs: Respirations even and unlabored, symmetrical chest expansion Eyes: PERRL Musculoskeletal: Bilateral hips: +harlan, +meng's, +compression and +distraction, worse on the left Neurological: Speech clear, no gross sensory deficit Assessment:: Bilateral sacroiliitis, low back pain Plan:: We will schedule the patient for a left cornerloc procedure. We will obtain pelvic and bilateral hip x-rays. Risk and benefits of this procedure has been discussed with the patient. Patient is currently not on blood thinners. Risks and benefits of the medication have been explained in detail to the patient. The patient does understand the risk of dependence on the medication when given over a prolonged period. Patient has been advised of risks of oversedation with the prescribed medication. Narcan has been offered to the paitent in the event of oversedation. Patient has been advised that a family member should also be educated regarding administration of Narcan. The patient has been advised to consult with his/her primary care provider and pharmacist regarding drug-drug interaction of medications currently prescribed. Patient has been prescribed a controlled substance after being counseled on the medication, medication safety, and possible side effects. LIZA report has been obtained and reviewed prior to prescription and found to be appropriate. Opioid contract was reviewed and signed by the patient, and that they have agreed to all of the terms set forth by our compliance program. Patient has been instructed to contact the clinic with any concerns before the next appointment. Dr. Lee has reviewed this note and agrees with this plan of care. This note was dictated using voice recognition software and make contain errors or omissions. [facility] History Medical History: Reports:: Depression, Gastroesophageal Reflux Disease(GERD) Denies:: Cancer, Diabetes Mellitus Type 1, Diabetes Mellitus Type 2, MRSA, Seizures *Have you ever received a pneumonia vaccine?: No *Have you received a flu vaccine this season?: No Other Medical History: Reports: Arthritis, Other. Denies: Blood Transfusion Reaction Laterality Cases: Right: Arthroscopy Knee Other Surgeries: Yes: Tubal Ligation, Other Amputation: No Fractures: No - *Social History Sm
== END ==
PROVIDERS: Visit Provider Clinical Nurse Specialist Family Health
DX: M46.1 Sacroiliitis, not elsewhere classified (principal); M54.50 Low back pain, unspecified
CPT/HCPCS: 72202; 73502; 99212; G0463

== ENCOUNTER → 2021-02-27 15:17 | Outpatient (CLI) | payer MEDICAID, SELFPAY ==
--- NOTE | 2021-02-27 15:20 | XR_ITS ---
PROCEDURE: XR HIP RT 2-3V W/PELVIS CLINICAL INDICATION: HIP/BACK PAIN COMPARISON: No exams were available for comparison FINDINGS: No fracture or dislocation is evident. No significant degenerative change. No lytic or blastic change. Unremarkable soft tissues. IMPRESSION: No acute findings. Dictated by: Otis Jhaveri MD 02/27/2021 16:56 Otis Jhaveri MD in [place] 02/27/2021 16:56
--- NOTE | 2021-02-27 15:20 | XR_ITS ---
PROCEDURE: XR SACROILIAC JOINT BI MIN 3V CLINICAL INDICATION: HIP/BACK PAIN COMPARISON: No exams were available for comparison FINDINGS: No fracture or dislocation. No lytic or blastic change. There is normal mineralization. There is minimal spurring along the inferior aspect of both SI joints. The SI joints are widely patent without sclerosis. IMPRESSION: Minimal degenerative change of the SI joints. Dictated by: Otis Jhaveri MD 02/27/2021 17:09 Otis Jhaveri MD in [place] 02/27/2021 17:09
--- NOTE | 2021-02-27 15:20 | XR_ITS ---
PROCEDURE: XR HIP LT 2-3V W/PELVIS CLINICAL INDICATION: HIP/BACK PAIN COMPARISON: No exams were available for comparison FINDINGS: No fracture or dislocation is evident. No significant degenerative change. No lytic or blastic change. Unremarkable soft tissues. IMPRESSION: No acute findings. Dictated by: Otis Jhaveri MD 02/27/2021 17:08 Otis Jhaveri MD in [place] 02/27/2021 17:08
== END ==
PROVIDERS: PCP Emergency Medicine; Visit Provider Clinical Nurse Specialist Family Health
DX: M53.3 Sacrococcygeal disorders, not elsewhere classified (principal); M25.552 Pain in left hip; M25.551 Pain in right hip
CPT/HCPCS: 72202; 73502

== ENCOUNTER → 2021-04-02 18:21 | Outpatient (CLI) | payer MEDICAID, SELFPAY ==
[2021-04-02 19:36] LABS: Barbiturates Screen,Urine Negative ng/ml (<200)
[2021-04-02 19:37] LABS: Benzodiazepines Screen,Urine Negative ng/ml (<200)
[2021-04-02 19:38] LABS: Amphetamine/Metha Screen,Urine Negative ng/ml (<1000); Methadone Screen,Urine Negative ng/ml (<300)
[2021-04-02 19:39] LABS: Cannabinoid Screen,Urine Negative ng/ml (<50); Cocaine Screen,Urine Negative ng/ml (<300)
[2021-04-02 19:40] LABS: Opiate Screen,Urine Positive ng/ml (<300)
[2021-04-02 19:41] LABS: Phencyclidine Screen,Urine Negative ng/ml (<25)
== END ==
PROVIDERS: Visit Provider Emergency Medicine
DX: Z79.899 Other long term (current) drug therapy (principal)
CPT/HCPCS: 80305

== ENCOUNTER → 2021-04-15 15:02 | Outpatient (CLI) | payer MEDICAID, SELFPAY ==
[2021-04-15 15:53] LABS: Hematocrit 41.4 % (37.0-47.0); Hemoglobin 13.6 g/dL (12.2-16.2)
[2021-04-15 17:58] LABS: Thyroid Stimulating Hormone 0.83 uIU/mL (0.465-4.68)
[2021-04-17 08:16] LABS: FSH 6.2 mIU/mL (.)
== END ==
PROVIDERS: Visit Provider Obstetrics & Gynecology
DX: N93.8 Other specified abnormal uterine and vaginal bleeding (principal)
CPT/HCPCS: 36415; 83001; 84443; 85014; 85018

== ENCOUNTER → 2021-04-24 15:16 | Outpatient (CLI) | payer MEDICAID, SELFPAY ==
--- NOTE | 2021-04-24 15:16 | MM_ITS ---
PROCEDURE INFORMATION: Exam: MG Bilateral Screening 3D Mammography Exam date and time: 04/24/2021 3:16 PM Age: 45 years old Clinical indication: Encounter for screening mammogram for malignant neoplasm of breast TECHNIQUE: Imaging protocol: Bilateral Screening tomosynthesis and 2D mammography including computer-aided detection (CAD) when performed. COMPARISON: 1. MG MM CLIP PLACEMENT RT 04/03/2020 2:17 PM 2. MG MM DIG MAMM DX UNILAT RT CAD 03/20/2020 1:50 PM FINDINGS: MAMMOGRAPHY: Breast composition: The breast tissue is heterogeneously dense, which may obscure small masses. Mass: None. Architectural distortion: None. Calcifications: No suspicious calcifications. Asymmetric density: None. Skin thickening: None. Axillary adenopathy: None. IMPRESSION: No mammographic evidence of malignancy. Annual screening is recommended unless otherwise clinically indicated. ASSESSMENT: BI-RADS Category 1: Negative
== END ==
PROVIDERS: PCP Emergency Medicine; Visit Provider Obstetrics & Gynecology
DX: Z12.31 Encounter for screening mammogram for malignant neoplasm of breast (principal)
CPT/HCPCS: 77063; 77067

== ENCOUNTER → 2021-06-16 12:47 | Outpatient (CLI) | payer MEDICAID, SELFPAY ==
[2021-06-16 14:41] LABS: Chloride 104 mmol/L (98-107); Sodium 136 mmol/L (136-145)
[2021-06-16 14:42] LABS: Potassium 4.6 mmoL/L (3.5-5.1)
[2021-06-16 14:45] LABS: Anion Gap 7.6 mEq/L (5-15); Blood Urea Nitrogen 12 mg/dl (7-17); Calcium 8.6 mg/dl (8.4-10.2); Carbon Dioxide 29 mmol/L (22.0-30.0); Estimated Glomerular Filt Rate 78 ml/min (>60); GFR (African American) 94 ML/MIN (>60); Glucose 103 mg/dl (74-100)
[2021-06-16 15:00] LABS: Basophils # 0.1 K/mm3 (0-0.2); Basophils % 0.6 % (0.1-2.0); Eosinophils # 0.4 K/mm3 (0.0-0.4); Eosinophils % 4.2 % (0.1-12.0); Hematocrit 36.9 % (37.0-47.0); Hemoglobin 11.7 g/dL (12.2-16.2); Lymphocytes # 2.6 K/mm3 (0.7-4.5); Lymphocytes % 25.3 % (10-50); Mean Corpuscular HGB Conc 31.7 g/dL (31.8-35.4); Mean Corpuscular Volume 91.4 fl (81-99); Mean Platelet Volume 8.8 fl (7.4-10.4); Monocytes # 0.5 K/mm3 (0.1-1.0); Monocytes % 4.4 % (1.7-9.3); Neutrophils # 6.8 K/mm3 (1.8-7.8); Neutrophils % 65.6 % (37.0-80.0); Platelet Count 282 K/mm3 (142-424); Red Blood Count 4.03 M/mm3 (4.20-5.40); Red Cell Distribution Width 13.8 % (11.5-17.5); White Blood Count 10.4 K/mm3 (4.8-10.8)
[2021-06-16 15:07] LABS: HCG Qualitative, Serum Negative (Negative)
== END ==
PROVIDERS: Visit Provider Anesthesiology
DX: Z01.812 Encounter for preprocedural laboratory examination (principal); Z11.52 Encounter for screening for COVID-19; M53.3 Sacrococcygeal disorders, not elsewhere classified
CPT/HCPCS: 36415; 80048; 84703; 85025; C9803; U0003; U0005

== ENCOUNTER 2021-06-17 11:19 | Day surgery (SDC) | payer MEDICAID, SELFPAY ==
[2021-06-16 11:09] VITALS: BMI 27.1
[2021-06-17] VITALS (10 sets, daily range): BP systolic 124–148; BP diastolic 71–86; PULSE 48–84; RESP 12–18; TEMP 36.4–43; O2SAT 93–98
--- NOTE | 2021-06-17 15:21 | HMH.OPNOTE ---
Date of procedure: 06/17/21 Pre-op Diagnosis:: Left sacroiliitis Post-op Diagnosis:: Same Procedure performed:: Left-sided SI joint stabilization with a corner lock system Surgeon:: Nany Wade MD DICER OPERATOR:: Sergio Espinoza Anesthesia: GETA Estimated blood loss (mL): 50 Clinical Note:: Patient is a very pleasant 46-year-old white female who presents today with chronic left-sided low back and hip pain related to the above diagnosis. She is trialed and failed conservative treatment getting oral pain medications, injection therapy, and home stretching program for greater than 6 weeks. She has now exhausted all conservative measures. The plan for today is for the patient to undergo left-sided SI joint stabilization of the Cornerloc system. Operative findings:: n/a Operative note:: Informed consent was obtained and the risk and benefits of the procedure was explained to the patient. Patient was taken to the operating room placed prone on the procedure table. Patient was prepped and draped in sterile fashion. A lateral view of the sacrum with C-arm was taken to make sure it was out of anteversion. We then did an oblique view of the right sacroiliac joint. We lined up the anterior and posterior sides of the joint to achieve a [place] . A line was drawn on the skin with the SI joint. The superior and inferior aspect of the joint were anesthetized using lidocaine. The superior and inferior aspect of the joint were marked off. 1 cm medial and 1 cm superiorly into the upper quadrant and 1 cm medial and 1 cm distal a 1 1/2 cm longitudinal incisions were made through the skin and subcutaneous tissues. Guidepins were then placed superior and inferior at a 90 degree angle to each other under C-arm guidance through the incision was made into the superior third and inferior third of the SI joint. Lateral C-arm view was then taken to check the depth of the pins into the SI joint. On the lateral view the joint finder was placed over the guidepin into the appropriate position. The working cannula retractor was then placed over the joint finder into the SI joint into the appropriate position and depth. The joint finder and guidepin were removed. The SI joint was drilled to remove cartilage and to get into the subchondral bone of the sacrum and ilium. The broach was then used to prepare a triangular groove into both the sacrum and ilium for insertion of stabilization grafts. A collagen spine was then placed into the prepared space and the stabilization graft was placed. This was done both superiorly inferiorly into the SI joint. The cannulated retractor was removed. The incisions were then closed with 2-0 Vicryl followed by colt. Dressings were placed and the patient was taken recovery in stable condition. Patient tolerated the procedure well with no complications. Disposition: We will follow-up with this patient in 1 week for wound check and in 2 weeks for staple removal. I will prescribe the mycin 300 mg 1 tablet 3 times daily for 7 days #21 and hydrocodone 5/325 1 tablet p.o. 4 to 6 hours as needed for pain control #25. Tyree and prior drug screens were reviewed and appropriate. Condition: stable Disposition: PACU Complications:: None
--- NOTE | 2021-06-17 16:28 | P.PN_ITS ---
[facility] Anesthesia Checklist - Structural Data Admitted From: Home Planned Operative Procedure/s: sacroilliac joint fusion Consent for Planned Operative Procedure(s) Verified: Yes - Additional verifications Anesthesia Reactions: No Hx Blood Transfusions: No Blood Transfusion Reaction: No - Airway Assessment C-Spine Mobility Assessed: Yes TMJ Mobility Assessed: Yes Dentition: Edentulous - Neurological Assessment Level of Consciousness: Awake, Alert, Appropriate - Anesthesia Plan Anesthesia Risk discussed: Yes Anesthesia Plan: Verified ASA Class: II Anesthesia Type: MAC [facility] History I have reviewed the patient's past medical history: Yes Medical History: Reports:: Depression, Gastroesophageal Reflux Disease(GERD) Denies:: Cancer, Diabetes Mellitus Type 1, Diabetes Mellitus Type 2, Internal Pacemaker, MRSA, Seizures *Have you ever received a pneumonia vaccine?: No *Have you received a flu vaccine this season?: No Other Medical History: Reports: Arthritis, Other. Denies: Blood Transfusion Idalia ction Anesthesia experience/problems:: none Laterality Cases: Right: Arthroscopy Knee, Breast Biopsy Other Surgeries: Yes: Tubal Ligation, Other. No: Pacemaker Amputation: No Fractures: No - *Social History Last grade of school completed: 11th or 12th Smoking Status: Current every day smoker Tobacco Type: cigarettes # Packs/Day (cigarettes): 1 Alcohol Intake: former Alcohol Intake Frequency:: 3 or more drinks per day Substance Use Type: former substance user, methamphetamine *Occupational Status:: unemployed Housing: house Household Members: other *Travel in the last 8 weeks: None - Psychiatric History Pschychiatric History:: Reports:: Depression Family Hx:: Cancer, Diabetes, Heart Attack
--- NOTE | 2021-06-17 16:29 | HMH.ANESI ---
[facility] Anesthesia Record Part I Intake, IV Amount: 800 Estimated blood loss (mL): 50 Urine output (mL): 0 Blood Pressure: 148/78 SaO2: 97 Pulse Rate: 53 Respiratory Rate: 12 Temperature: 97.8 F Patient is:: Awake, Stable Stable to PACU at:: 16:25
--- NOTE | 2021-06-17 16:58 | SUR.PHASEI ---
1655- detailed report given to dee correa in post op. Pt transported to post op by dee correa in stable condition
--- NOTE | 2021-06-18 13:55 | HMH.ANESII ---
[facility] Anesthesia Record Part II Discharge Time: 16:55 Destination: Surgical Day Care (OP Surgery) PACU nurse assessment reviewed?: Yes Patient Condition:: Good Anesthesia Complications:: None Swallowing reflex intact?: Yes Cyanosis?: No Blood Pressure: 124/73 Pulse Rate: 48 Temperature: 97.8 F Mental Status: Alert & Oriented Pain level:: 3 Nausea and/or vomitting:: None Intake, IV Amount: 0
[2021-06-18 13:56] VITALS: BP 124/73; PULSE 48; TEMP 36.6
== END 2021-06-17 17:30 | disposition home or self-care (01) ==
LOC: OR 11:20
PROVIDERS: PCP Emergency Medicine; Visit Provider Anesthesiology Pain Medicine
PROC: (CPT 27280; principal; 2021-06-17 12:45)
DX: M46.1 Sacroiliitis, not elsewhere classified (principal); K21.9 Gastro-esophageal reflux disease without esophagitis; F32.A Depression, unspecified; M19.90 Unspecified osteoarthritis, unspecified site; Z72.0 Tobacco use; Z80.9 Family history of malignant neoplasm, unspecified; Z83.3 Family history of diabetes mellitus; Z82.3 Family history of stroke; Z88.2 Allergy status to sulfonamides; Z79.899 Other long term (current) drug therapy
CPT/HCPCS: 27280; 96374; C1713; J2405; J2710; J3370

== ENCOUNTER → 2021-07-07 08:53 | Outpatient (POV) | payer MEDICAID, SELFPAY ==
[2021-07-07 09:48] VITALS: BP 117/68; PULSE 73; RESP 18; TEMP 36.2; O2SAT 98; BMI 27.1
--- NOTE | 2021-07-07 10:36 | P.CONS_ITS ---
[facility] Pain Management SOAP Note Subjective:: Patient is a pleasant 46-year-old female who presents today for 3 week follow-up after a left sided SI joint stabilization procedure with the Cornerloc system on June 18, 2019. Patient has been doing well with this procedure. She has had 80 to 90% relief. Patient states that she has been able to increase her activity since her procedure. Rates pain today as 3 out of 10. We plan to remove her sutures today. Patient is also being managed with [place] 10 mg 4 times a day and gabapentin 800 mg 4 times a day that is prescribed by Dr. Matt. Patient denies any side effects from his medications. [facility] #[phone] with an active morphine equivalent of 40. Review of Systems: General: No recent weight changes, no fever, no sleep disturbances Respiratory: No cough, no shortness of air, no recurring pulmonary infections Cardiovascular/peripheral vascular: No chest pain, no palpitations, no edema, no shortness of breath Gastrointestinal: No new onset incontinence, normal bowel movements reported Genitourinary: No new onset incontinence Musculoskeletal: Improving left hip pain Psychiatric: [Normal mood/affect] Neurological: [Denies weakness in extremities], [denies balance issues] Objective:: Physical Exam: General: Alert and oriented x3, no acute distress, pleasant and cooperative, [on room air] Lungs: Respirations even and unlabored, symmetrical chest expansion Eyes: PERRL Musculoskeletal: Increased range of motion of the left hip Skin: Surgical incisions are healing well and well approximated. There is no drainage, erythema, and swelling. Neurological: Speech clear, no gross sensory deficit Assessment:: Status post left SI joint stabilization procedure Degenerative disc disease of lumbar spine Plan:: Patient has been doing well after the left SI joint stabilization procedure. Patient denies any issues or any worsening pain. We remove her colt today. Surgical incisions are healing well and well approximated. There is no drainage, erythema, and swelling. We will follow with this patient in 4 weeks. Patient has been instructed to contact the clinic with any concerns before the next appointment. Dr. Lee has reviewed this note and agrees with this plan of care. This note was dictated using voice recognition software and make contain errors or omissions. [facility] History Medical History: Reports:: Depression, Gastroesophageal Reflux Disease(GERD) Denies:: Cancer, Diabetes Mellitus Type 1, Diabetes Mellitus Type 2, Internal Pacemaker, MRSA, Seizures *Have you ever received a pneumonia vaccine?: Yes *Have you received a flu vaccine this season?: No Other Medical History: Reports: Arthritis, Other. Denies: Blood Transfusion Reaction Laterality Cases: Right: Arthroscopy Knee, Breast Biopsy Other Surgeries: Yes: Tubal Ligation, Other. No: Pacemaker Amputation: No Fractures: No - *Social History Smoking Status: Current every day smoker Tobacco Type: cigarettes # Packs/Day (cigarettes): 1 Alcohol Intake: former Alcohol Intake Frequency:: 3 or more drinks per day Substance Use Type: former substance user, methamphetamine *Occupational Status:: unemployed Housing: house Household Members: other *Travel in the last 8 weeks: None - Psychiatric History Pschychiatric History:: Reports:: Depression Family Hx:: Cancer, Diabetes, Heart Attack
== END ==
PROVIDERS: Visit Provider Student in an Organized Health Care Education/Training Program
DX: M51.36 Other intervertebral disc degeneration, lumbar region (principal); Z98.890 Other specified postprocedural states
CPT/HCPCS: 99212; G0463

== ENCOUNTER → 2021-07-28 12:36 | Outpatient (CLI) | payer MEDICAID, SELFPAY ==
[2021-07-28 19:14] LABS: Barbiturates Screen,Urine Negative ng/ml (<200)
[2021-07-28 19:15] LABS: Amphetamine/Metha Screen,Urine Negative ng/ml (<1000); Benzodiazepines Screen,Urine Negative ng/ml (<200)
[2021-07-28 19:16] LABS: Cannabinoid Screen,Urine Negative ng/ml (<50)
[2021-07-28 19:17] LABS: Cocaine Screen,Urine Negative ng/ml (<300); Methadone Screen,Urine Negative ng/ml (<300)
[2021-07-28 19:18] LABS: Opiate Screen,Urine Positive ng/ml (<300)
[2021-07-28 19:19] LABS: Phencyclidine Screen,Urine Negative ng/ml (<25)
== END ==
PROVIDERS: PCP Emergency Medicine; Visit Provider Emergency Medicine
DX: Z79.899 Other long term (current) drug therapy (principal)
CPT/HCPCS: 80305

== ENCOUNTER → 2021-08-07 13:50 | Outpatient (POV) | payer MEDICAID, SELFPAY ==
[2021-08-07 13:57] VITALS: BP 149/87; PULSE 56; RESP 18; TEMP 36.7; O2SAT 97; BMI 27.1
--- NOTE | 2021-08-07 14:23 | HMH.PAINSOAP ---
[facility] Pain Management SOAP Note Subjective:: Patient is a pleasant 46-year-old female presents today for follow-up. Patient is currently being treated for bilateral sacroiliitis. She had a left-sided SI joint stabilization procedure with the Cornerloc system on June 17, 2021. She has been doing significantly well with this system. She continues to have relief denies any issues after the procedure. Patient has been able to increase her activity since the procedure. She presents today wanting to know if we can schedule her for the right-sided stabilization procedure. Patient has had 2-3 bilateral SI injection that provided 90 to 100% relief in the past. She has tried and failed conservative therapies such as oral medication, physical therapy, and at home exercises for greater than 6 weeks. She rates her pain today as 3 out of 10. She is currently prescribed [place] 10 mg 4 times a day and gabapentin 800 mg 4 times a day by Dr. Matt. Tyree [phone] with an active morphine equivalent of 40. Review of Systems: General: No recent weight changes, no fever, no sleep disturbances Respiratory: No cough, no shortness of air, no recurring pulmonary infections Cardiovascular/peripheral vascular: No chest pain, no palpitations, no edema, no shortness of breath Gastrointestinal: No new onset incontinence, normal bowel movements reported Genitourinary: No new onset incontinence Musculoskeletal: Improving left hip pain, right hip pain Psychiatric: [Normal mood/affect] Neurological: [Denies weakness in extremities], [denies balance issues] Objective:: Physical Exam: General: Alert and oriented x3, no acute distress, pleasant and cooperative Lungs: Respirations even and unlabored, symmetrical chest expansion Eyes: PERRL Musculoskeletal: Right SI is positive for JEROME, Thomas's, Alba's, Gaenslen's, compression, and distraction. Neurological: Speech clear, no gross sensory deficit Assessment:: Bilateral sacroiliitis Plan:: Patient continues to have significant relief after the left SI stabilization procedure with a cornerloc system. Patient has had 2 bilateral SI injections that provided 90 to 100% temporary relief. Patient has tried and failed conservative therapy such as oral medication, physical therapy, and at home exercise program in 6 weeks. We will schedule the patient for a right-sided SI joint stabilization procedure with the cornerloc system. Risks and benefits of the procedure have been explained to the patient. Patient would like to proceed with the procedure. Patient has been instructed to contact the clinic with any concerns before the next appointment. Dr. Lee has reviewed this note and agrees with this plan of care. This note was dictated using voice recognition software and make contain errors or omissions. [facility] History Medical History: Reports:: Depression, Gastroesophageal Reflux Disease(GERD) Denies:: Cancer, Diabetes Mellitus Type 1, Diabetes Mellitus Type 2, Internal Pacemaker, MRSA, Seizures *Have you ever received a pneumonia vaccine?: No *Have you received a flu vaccine this season?: No Other Medical History: Reports: Arthritis, Other. Denies: Blood Transfusion Reaction Laterality Cases: Right: Arthroscopy Knee, Breast Biopsy Other Surgeries: Yes: Tubal Ligation, Other. No: Pacemaker Amputation: No Fractures: No - *Social History Smoking Status: Never smoker Tobacco Type: cigarettes # Packs/Day (cigarettes): 1 Alcohol Intake: never Alcohol Intake Frequency:: 3 or more drinks per day Substance Use Type: former substance user, methamphetamine *Occupational Status:: unemployed Housing: house Household Members: other *Travel in the last 8 weeks: None - Psychiatric History Pschychiatric History:: Reports:: Depression Family Hx:: Cancer, Diabetes, Heart Attack
== END ==
PROVIDERS: Visit Provider Student in an Organized Health Care Education/Training Program
DX: M46.1 Sacroiliitis, not elsewhere classified (principal)
CPT/HCPCS: 99212; G0463

== ENCOUNTER → 2021-08-23 10:55 | Outpatient (CLI) | payer MEDICAID, SELFPAY ==
[2021-08-23 11:47] LABS: Basophils # 0.1 K/mm3 (0-0.2); Basophils % 1.7 % (0.1-2.0); Eosinophils # 0.4 K/mm3 (0.0-0.4); Eosinophils % 4.6 % (0.1-12.0); Hemoglobin 12.3 g/dL (12.2-16.2); Lymphocytes # 2.7 K/mm3 (0.7-4.5); Lymphocytes % 34.4 % (10-50); Mean Corpuscular HGB Conc 32.4 g/dL (31.8-35.4); Mean Corpuscular Hemoglobin 28.6 pg (27.0-31.2); Mean Corpuscular Volume 88.2 fl (81-99); Mean Platelet Volume 7.4 fl (7.4-10.4); Monocytes # 0.3 K/mm3 (0.1-1.0); Neutrophils # 4.3 K/mm3 (1.8-7.8); Neutrophils % 55.4 % (37.0-80.0); Platelet Count 308 K/mm3 (142-424); Red Blood Count 4.31 M/mm3 (4.20-5.40); White Blood Count 7.8 K/mm3 (4.8-10.8)
[2021-08-23 12:17] LABS: Anion Gap 12.4 mEq/L (5-15); Blood Urea Nitrogen 12 mg/dl (7-17); Calcium 9.9 mg/dl (8.4-10.2); Carbon Dioxide 29 mmol/L (22.0-30.0); Chloride 101 mmol/L (98-107); Estimated Glomerular Filt Rate 78 ml/min (>60); GFR (African American) 94 ML/MIN (>60); Glucose 119 mg/dl (74-100); Potassium 4.4 mmoL/L (3.5-5.1); Sodium 138 mmol/L (136-145)
== END ==
PROVIDERS: Visit Provider Anesthesiology
DX: Z01.812 Encounter for preprocedural laboratory examination (principal); Z20.822 Contact with and (suspected) exposure to COVID-19
CPT/HCPCS: 36415; 80048; 85025; C9803; U0003; U0005

== ENCOUNTER 2021-08-26 08:00 | Day surgery (SDC) | payer MEDICAID, SELFPAY ==
[2021-08-21 10:13] VITALS: BMI 27.1
[2021-08-26] VITALS (9 sets, daily range): BP systolic 114–163; BP diastolic 64–89; PULSE 61–98; RESP 16–18; TEMP 36.2–36.7; O2SAT 94–100
[2021-08-26 08:49] LABS: Urine Pregnancy, HCG Qual. Negative (Negative)
--- NOTE | 2021-08-26 10:14 | HMH.ANESCL ---
[facility] Anesthesia Checklist - Patient Identification Patient Identification: Arm Band - Structural Data Admitted From: Home Planned Operative Procedure/s: S I joint fusion Consent for Planned Operative Procedure(s) Verified: Yes - NPO Status Verified Time NPO: 00:00 - Additional verifications Anesthesia Reactions: No Hx Blood Transfusions: No Blood Transfusion Reaction: No - Airway Assessment C-Spine Mobility Assessed: Yes TMJ Mobility Assessed: Yes Dentition: Edentulous - Neurological Assessment Level of Consciousness: Awake Hx Seizures: No Numbness or tingling in extremities: No - Anesthesia Plan Anesthesia Risk discussed: Yes Anesthesia Plan: Verified ASA Class: II Anesthesia Type: General [facility] History I have reviewed the patient's past medical history: Yes Medical History: Reports:: Depression, Gastroesophageal Reflux Disease(GERD) Denies:: Cancer, Diabetes Mellitus Type 1, Diabetes Mellitus Type 2, Internal Pacemaker, MRSA, Seizures *Have you ever received a pneumonia vaccine?: No *Have you received a flu vaccine this season?: No Other Medical History: Reports: Arthritis, Other. Denies: Blood Transfusion Reaction Anesthesia experience/problems:: None Laterality Cases: Right: Arthroscopy Knee, Breast Biopsy Other Surgeries: Yes: Tubal Ligation, Other. No: Pacemaker Amputation: No Fractures: No - *Social History Last grade of school completed: High school graduate Smoking Status: Current every day smoker Tobacco Type: e-cigarettes # Packs/Day (cigarettes): 1 Alcohol Intake: never Alcohol Intake Frequency:: 3 or more drinks per day Substance Use Type: former substance user, methamphetamine *Occupational Status:: employed Housing: house Household Members: other *Travel in the last 8 weeks: None - Psychiatric History Pschychiatric History:: Reports:: Depression Family Hx:: Cancer, Diabetes, Heart Attack
--- NOTE | 2021-08-26 11:48 | P.PN_ITS ---
[facility] Anesthesia Record Part I Intake, IV Amount: 800 Estimated blood loss (mL): 5 Urine output (mL): 0 Blood Pressure: 163/74 SaO2: 95 Pulse Rate: 76 Respiratory Rate: 16 Temperature: 97.2 F Patient is:: Awake Stable to PACU at:: 11:47
--- NOTE | 2021-08-26 11:53 | HMH.OPNOTE ---
Date of procedure: 08/26/21 Pre-op Diagnosis:: Sacroiliitis Post-op Diagnosis:: Same Procedure performed:: Right SI joint stabilization Surgeon:: Jean-Claude Lee MD [employer] SPECIALIST:: Kianna Alvarez Anesthesia: GETA Estimated blood loss (mL): 5 Clinical Note:: Patient is a pleasant 46-year-old white female who we are treating for chronic sacroiliitis. She is status post left SI joint stabilization back in May. She is doing very well with this stabilization with minimal pain on her left side. Most of her pain is now on the right side. She has done well with injections with 80 to 90% relief however it only lasted few weeks. She presents for right SI joint stabilization with the cornerloc system today. Operative findings:: None Operative note:: Informed consent was obtained and the risk and benefits of the procedure was explained to the patient. Patient was taken to the operating room placed prone on the procedure table. Patient was prepped and draped in sterile fashion. A lateral view of the sacrum with C-arm was taken to make sure it was out of anteversion. We then did an oblique view of the right sacroiliac joint. We lined up the anterior and posterior sides of the joint to achieve a [place] . A line was drawn on the skin with the SI joint. The superior and inferior aspect of the joint were anesthetized using lidocaine. The superior and inferior aspect of the joint were marked off. 1 cm medial and 1 cm superiorly into the upper quadrant and 1 cm medial and 1 cm distal a 1 1/2 cm longitudinal incisions were made through the skin and subcutaneous tissues. Guidepins were then placed superior and inferior at a 90 degree angle to each other under C-arm guidance through the incision was made into the superior third and inferior third of the SI joint. Lateral C-arm view was then taken to check the depth of the pins into the SI joint. On the lateral view the joint finder was placed over the guidepin into the appropriate position. The working cannula retractor was then placed over the joint finder into the SI joint into the appropriate position and depth. The joint finder and guidepin were removed. The SI joint was drilled to remove cartilage and to get into the subchondral bone of the sacrum and ilium. The broach was then used to prepare a triangular groove into both the sacrum and ilium for insertion of stabilization grafts. A collagen spine was then placed into the prepared space and the stabilization graft was placed. This was done both superiorly inferiorly into the SI joint. The cannulated retractor was removed. The incisions were then closed with 2-0 Vicryl followed by 4-0 nylon. Dressings were placed and the patient was taken recovery in stable condition. Patient tolerated the procedure well with no complications. Condition: stable Disposition: PACU Complications:: None
[2021-08-27 12:55] VITALS: BP 114/79; PULSE 62; TEMP 36.3
--- NOTE | 2021-08-27 12:55 | P.PN_ITS ---
[facility] Anesthesia Record Part II Discharge Time: 12:17 Destination: Surgical Day Care (OP Surgery) PACU nurse assessment reviewed?: Yes Patient Condition:: Good Anesthesia Complications:: None Swallowing reflex intact?: Yes Cyanosis?: No Blood Pressure: 114/79 Pulse Rate: 62 Temperature: 97.4 F Mental Status: Alert & Oriented Pain level:: 5 Nausea and/or vomitting:: None Intake, IV Amount: 0
== END 2021-08-26 12:50 | disposition home or self-care (01) ==
LOC: OR 08:00
PROVIDERS: PCP Emergency Medicine; Visit Provider Anesthesiology
PROC: (CPT 27279; principal; 2021-08-26 09:30)
DX: M46.1 Sacroiliitis, not elsewhere classified (principal); F32.A Depression, unspecified; K21.9 Gastro-esophageal reflux disease without esophagitis; M19.90 Unspecified osteoarthritis, unspecified site; Z72.0 Tobacco use; F15.11 Other stimulant abuse, in remission; Z88.2 Allergy status to sulfonamides; Z79.899 Other long term (current) drug therapy
CPT/HCPCS: 27279; 81025; 96374; C1713; J2405; J2710; J3370

== ENCOUNTER → 2021-09-09 09:18 | Outpatient (POV) | payer MEDICAID, SELFPAY ==
[2021-09-09 09:51] VITALS: BP 113/69; PULSE 74; RESP 18; TEMP 36.4; O2SAT 97; BMI 27.1
--- NOTE | 2021-09-09 09:52 | P.CONS_ITS ---
[facility] Pain Management SOAP Note Subjective:: Patient is a very pleasant 46-year-old female that returns our clinic today following her opposite side sacral stabilization procedure. She is status post 2 weeks from right SI stabilization procedure. Patient is doing very well. She reports minimal pain if any. She is ambulating without difficulty. Sitting and standing without difficulty. She rates her pain today 2/10. Patient very pleased with the results. Patient continues taking gabapentin 800 mg 1 p.o. 3 times daily and hydrocodone 10 mg 1 p.o. 3 times daily from her PCP. Her Tyree has been reviewed today #[id number]. It appears appropriate. Objective:: Is awake alert [place] x3. In no acute distress. Flexion-extension lumbar spine normal. Deep tendon reflexes upper and lower extremities normal. Motor strength upper and lower extremities normal. There is no gross sensory deficit. Gait is normal. Assessment:: Chronic bilateral sacroiliitis. Plan:: Patient will follow up with us as needed. She is doing very well. [facility] History Medical History: Reports:: Depression, Gastroesophageal Reflux Disease(GERD) Denies:: Cancer, Diabetes Mellitus Type 1, Diabetes Mellitus Type 2, Internal Pacemaker, MRSA, Seizures *Have you ever received a pneumonia vaccine?: No *Have you received a flu vaccine this season?: No Other Medical History: Reports: Arthritis, Other. Denies: Blood Transfusion Reaction Laterality Cases: Right: Arthroscopy Knee, Breast Biopsy Other Surgeries: Yes: Tubal Ligation, Other. No: Pacemaker Amputation: No Fractures: No - *Social History Smoking Status: Current every day smoker Tobacco Type: e-cigarettes # Packs/Day (cigarettes): 1 Alcohol Intake: never Alcohol Intake Frequency:: 3 or more drinks per day Substance Use Type: former substance user, methamphetamine *Occupational Status:: employed Housing: house Household Members: other *Travel in the last 8 weeks: Inside the [place] - Psychiatric History Pschychiatric History:: Reports:: Depression Family Hx:: Cancer, Diabetes, Heart Attack
== END ==
PROVIDERS: Visit Provider Nurse Anesthetist, Certified Registered
DX: M46.1 Sacroiliitis, not elsewhere classified (principal); M19.90 Unspecified osteoarthritis, unspecified site; Z72.0 Tobacco use
CPT/HCPCS: 99212; G0463

== ENCOUNTER → 2021-09-25 07:16 | Outpatient (CLI) | payer MEDICAID, SELFPAY ==
[2021-09-24 17:36] LABS: Amphetamine/Metha Screen,Urine Negative ng/ml (<1000); Benzodiazepines Screen,Urine Negative ng/ml (<200)
[2021-09-24 17:37] LABS: Barbiturates Screen,Urine Negative ng/ml (<200)
[2021-09-24 17:38] LABS: Cannabinoid Screen,Urine Positive ng/ml (<50); Cocaine Screen,Urine Negative ng/ml (<300)
[2021-09-24 17:39] LABS: Methadone Screen,Urine Negative ng/ml (<300)
[2021-09-24 17:40] LABS: Opiate Screen,Urine Positive ng/ml (<300); Phencyclidine Screen,Urine Negative ng/ml (<25)
== END ==
PROVIDERS: PCP Emergency Medicine; Visit Provider Emergency Medicine
DX: Z79.899 Other long term (current) drug therapy (principal)
CPT/HCPCS: 80305

== ENCOUNTER → 2021-12-04 12:42 | Outpatient (CLI) | payer MEDICAID, SELFPAY ==
--- NOTE | 2021-12-04 12:47 | XR_ITS ---
FINAL REPORT CLINICAL HISTORY: right medial knee pain (prox tibia). hx of knee surgery. FINDINGS: RIGHT KNEE Three views of the right knee reveal no evidence of fracture or dislocation. The bony alignment is normal. There is mild degenerative change. There are postoperative changes from ACL repair. There is a small joint effusion. No localized soft tissue abnormality is identified. IMPRESSION: Postoperative and degenerative change with no acute abnormality identified. Small joint effusion. Reviewed, Interpreted and Dictated by Jose Combs III, MD Transcribed by Pamela Torres Authenticated and [facility]
== END ==
PROVIDERS: PCP Emergency Medicine; Visit Provider Orthopaedic Surgery
DX: M25.561 Pain in right knee (principal)
CPT/HCPCS: 73562

== ENCOUNTER 2021-12-09 15:48 | Outpatient (RCR) | payer MEDICAID, SELFPAY | END 2021-12-09 16:50 | disposition home or self-care (01) | LOC: PT 15:48 | PROVIDERS: PCP Emergency Medicine; Visit Provider Orthopaedic Surgery | DX: M25.561 Pain in right knee (principal) | CPT/HCPCS: 97163 ==

== ENCOUNTER → 2022-01-20 10:33 | Outpatient (CLI) | payer MEDICAID, SELFPAY ==
[2022-01-20 20:00] LABS: Barbiturates Screen,Urine Negative ng/ml (<200); Benzodiazepines Screen,Urine Negative ng/ml (<200)
[2022-01-20 20:01] LABS: Amphetamine/Metha Screen,Urine Negative ng/ml (<1000)
[2022-01-20 20:02] LABS: Cannabinoid Screen,Urine Positive ng/ml (<50); Methadone Screen,Urine Negative ng/ml (<300)
[2022-01-20 20:03] LABS: Cocaine Screen,Urine Negative ng/ml (<300)
[2022-01-20 20:04] LABS: Opiate Screen,Urine Positive ng/ml (<300); Phencyclidine Screen,Urine Negative ng/ml (<25)
== END ==
PROVIDERS: PCP Emergency Medicine; Visit Provider Emergency Medicine
DX: Z79.899 Other long term (current) drug therapy (principal)
CPT/HCPCS: 80305

== ENCOUNTER → 2022-01-29 13:10 | Outpatient (CLI) | payer MEDICAID, SELFPAY ==
--- NOTE | 2022-01-29 13:30 | XR_ITS ---
FINAL REPORT CLINICAL HISTORY: LT ELBOW INJURY FINDINGS: LEFT ELBOW 3 views were obtained. There is no acute fracture or dislocation. There is no joint effusion. The joint spaces are intact. There is no soft tissue abnormality. IMPRESSION: No acute process. Reviewed, Interpreted and Dictated by Jose Combs III, MD Transcribed by Michele Rosas Authenticated and [facility]
== END ==
PROVIDERS: PCP Emergency Medicine; Visit Provider Orthopaedic Surgery
DX: S59.902A Unspecified injury of left elbow, initial encounter (principal); M25.532 Pain in left wrist
CPT/HCPCS: 73080

== ENCOUNTER 2022-03-06 15:30 | Outpatient (RCR) | payer MEDICAID, SELFPAY ==
--- NOTE | 2022-02-03 17:33 | HMH.PTOPEV ---
PT Outpatient Evaluation Rehab PT Outpatient Evaluation Start: 02/03/22 17:15 Freq: Status: Active Protocol: Document 02/03/22 17:20 SKYLAR (Rec: 02/03/22 17:32 SKYLAR [id number]) E-signed By Edi Mueller, PT Outpatient Therapy Subjective History Subjective History Patient is a 46 year old female presenting to outpatient PT with reports of chronic R knee pain of insidious onset starting approx 6 months ago. Initial injury occurred while playing basketball. Most recent imaging indicates post- surgical degenerative changes. Patient underwent R knee ACL and medial meniscus reconstruction approx 28 years ago. No other comorbidities to report. [ End ] Chief Complaint Pain,Stiff,Clicks,Gives out/ Unstable,Weakness Symptom Type Sharp,Burning Symptoms Relieved By Rest/Positioning,Ice, Prescription Meds Symptoms Aggravated By Standing,Physical Activity, Walking Prior Functional Limitations Standing,Walking Current Functional Limitations Housework,Standing,Recreation Activity,Walking,Stairs Hip/Knee Eval Gait Observation General Gait Pattern Observation Antalgic Gait,Decrease Weight Bear (R) Assistive Device Assistive Devices None / NA Palpation Tenderness right Knee Palpation Finding Tenderness Knee Palpation Overall Comment MJL, peripatellar 3/4 MMT Hip Flexion Strength Grade 5 Normal Hip Abduction Strength Grade 5 Normal Hip Adduction Strength Grade 5 Normal Hip Extension Strength Grade 4 Good Hip External Rotation Strength Grade 4 Good Hip Internal Rotation Strength Grade 4 Good Knee Extension Strength Grade 4- Good- Knee Flexion Strength Grade 5 Normal ROM Hip ROM Reason Not Measured Within Functional Limits Knee Extension Active Range of Motion ( -9 degrees) Knee Flexion Active Range of Motion ( 121 degrees) Knee ROM Limitations Soft Tissue Tightness Special Tests Knee Anterior [place] Test Negative Right Knee Pivot Shift Test Negative Right Knee Valgus Stress Test Negative Right Knee Varus Stress Test Negative Right Knee Rosa Elena Test Negative Right O
== END 2022-03-06 15:35 | disposition home or self-care (01) ==
LOC: PT 15:30
PROVIDERS: PCP Emergency Medicine; Visit Provider Orthopaedic Surgery
DX: M25.561 Pain in right knee (principal)
CPT/HCPCS: 97010; 97014; 97033; 97035; 97110; 97163; G0283

== ENCOUNTER → 2022-03-18 17:06 | Outpatient (CLI) | payer MEDICAID, SELFPAY ==
[2022-03-18 19:06] LABS: Amphetamine/Metha Screen,Urine Negative ng/ml (<1000)
[2022-03-18 19:07] LABS: Barbiturates Screen,Urine Negative ng/ml (<200)
[2022-03-18 19:08] LABS: Benzodiazepines Screen,Urine Negative ng/ml (<200); Cannabinoid Screen,Urine Negative ng/ml (<50)
[2022-03-18 19:09] LABS: Cocaine Screen,Urine Negative ng/ml (<300)
[2022-03-18 19:10] LABS: Methadone Screen,Urine Negative ng/ml (<300)
[2022-03-18 19:11] LABS: Opiate Screen,Urine Positive ng/ml (<300); Phencyclidine Screen,Urine Negative ng/ml (<25)
== END ==
PROVIDERS: PCP Emergency Medicine; Visit Provider Emergency Medicine
DX: M51.36 Other intervertebral disc degeneration, lumbar region (principal)
CPT/HCPCS: 80305

== ENCOUNTER → 2022-05-13 15:40 | Outpatient (CLI) | payer MEDICAID, SELFPAY ==
[2022-05-13 18:53] LABS: Amphetamine/Metha Screen,Urine Negative ng/ml (<1000)
[2022-05-13 18:54] LABS: Barbiturates Screen,Urine Negative ng/ml (<200); Benzodiazepines Screen,Urine Negative ng/ml (<200)
[2022-05-13 18:55] LABS: Cannabinoid Screen,Urine Negative ng/ml (<50)
[2022-05-13 18:56] LABS: Cocaine Screen,Urine Negative ng/ml (<300)
[2022-05-13 18:57] LABS: Methadone Screen,Urine Negative ng/ml (<300); Opiate Screen,Urine Positive ng/ml (<300)
[2022-05-13 18:58] LABS: Phencyclidine Screen,Urine Negative ng/ml (<25)
== END ==
PROVIDERS: PCP Emergency Medicine; Visit Provider Emergency Medicine
DX: Z79.899 Other long term (current) drug therapy (principal)
CPT/HCPCS: 80305

== ENCOUNTER → 2022-06-15 15:14 | Outpatient (POV) | payer MEDICAID, SELFPAY ==
[2022-06-15 15:52] VITALS: BP 118/77; PULSE 79; RESP 18; O2SAT 98; BMI 28.8
--- NOTE | 2022-06-15 15:59 | EXP.PAIN.SOA ---
[facility] Pain Management SOAP Note Subjective:: Patient is a pleasant 47-year-old female who presents today for follow-up. We are currently treating the patient for sacroiliitis, low back pain, degenerative disc disease of lumbar spine with lumbar radiculopathy symptoms, lumbar facet arthropathy, lumbar spondylosis. Today she rates her pain a 6 out of 10. Patient denies any new trauma or injury. Patient denies any change to location or type of pain she experiences. Patient does states she has pain throughout her low back that does radiate into her hips down to her mid thighs. Patient does describe this as an aching, throbbing sensation with burning and tingling into her upper extremities. Patient states this has been going on for approximately 3 to 4 weeks however she has had it in the past. Patient did have a right SI stabilization procedure last year that did provide 100% relief lasting up until the last 2 months. 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 Patient states that she does believe this activity has aggravated some of her symptoms. She does state that it is worse with certain movements such as bending, twisting, lifting. Patient states she cannot tolerate prolonged activity such as cooking and cleaning due to her increased pain symptoms. Patient frequently has to stop and take multiple breaks. Patient is currently prescribed [place] 10 mg 4 times a day and gabapentin 800 mg 4 times a day from her primary care doctor. Patient denies any side effects from this medication. Her Tyree is [id number]. Its been reviewed and appropriate. Review of Systems: General: No recent weight changes, no fever, no sleep disturbances Respiratory: No cough, no shortness of air, no recurring pulmonary infections Cardiovascular/peripheral vascular: No chest pain, no palpitations, no edema, no shortness of breath Gastrointestinal: No new onset incontinence, normal bowel movements reported Genitourinary: No new onset incontinence Musculoskeletal: Low back pain Psychiatric: [Normal mood/affect] Neurological: [Denies weakness in extremities], [denies balance issues] Objective:: Physical Exam: General: Alert and oriented x3, no acute distress, pleasant and cooperative Lungs: Respirations even and unlabored, symmetrical chest expansion Eyes: PERRL Musculoskeletal: Flexion and extension of lumbar [spine] somewhat guarded secondary to pain, [antalgic gait noted] positive Kemps test Neurological: Speech clear, no gross sensory deficit ORT score updated with high risk Oswestry index score of 29 Assessment:: Degenerative disc disease of lumbar spine with lumbar radiculopathy symptoms, lumbar facet arthropathy, lumbar spondylosis, low back pain, sacroiliitis Plan:: Patient is experiencing significant pain in her low back that is aggravated by symptoms such as bending, lifting, twisting. Patient did have limited range of motion of her lumbar spine with a positive Kemps test during today's visit. I have discussed with the patient that she may benefit from a medial branch block of her lumbar spine. Risk and benefits were discussed with the patient and she would like to proceed forward with this plan of care. Patient is not on any blood thinners. We will schedule the patient for a medial branch block of her lumbar spine bilaterally L4-L5 and L5-S1. Patient has been instructed to contact the clinic with any concerns before the next appointment. Dr. Lee has reviewed this note and agrees with this plan of care. This note was dictated using voice recognition software and make contain errors or omissions. [facility] Disclaimer: The information contained in this section may have been updated after the patient was seen, as this information can be updated by other users. Social History Smoking Status: Current every day smoker tobacco type: e-cigarettes alcohol in
== END ==
PROVIDERS: PCP Emergency Medicine; Visit Provider Nurse Practitioner Family
DX: M51.16 Intervertebral disc disorders with radiculopathy, lumbar region (principal); M47.26 Other spondylosis with radiculopathy, lumbar region; M46.1 Sacroiliitis, not elsewhere classified
CPT/HCPCS: 99212; G0463

== ENCOUNTER → 2022-07-02 12:17 | Outpatient (POV) | payer MEDICAID, SELFPAY ==
[2022-07-02 12:31] VITALS: RESP 18; O2SAT 97; BMI 28.8
--- NOTE | 2022-07-02 13:20 | EXP.PAIN.SOA ---
[facility] Pain Management SOAP Note Subjective:: This patient is a pleasant 47-year-old female returns our clinic today for follow-up visit after insurance denial of lumbar medial branch block L4-5, L5-S1 bilaterally. I discussed in detail with the patient regarding her lumbar back pain. I did in room evaluation and examination regarding her low back pain. She has extreme point tenderness over the bilateral lumbar facet joints. Patient has difficulty with flexion and extension. Extension causing worse pain than flexion. Patient has difficulty with left and right rotation. This increases her pain significantly in the lumbar spine. Patient has been doing home exercise program. Patient has tried physical therapy within the last 6 months with minimal results. In fact, patient reports physical therapy increased her pain significantly. She was not able to complete her physical therapy sessions due to the pain. Patient currently takes [place] 10 mg 4 times daily and gabapentin 800 mg 1 p.o. 4 times daily from her primary care doctor. Her Tyree #[id number] has been reviewed and is appropriate. Patient states the pain medication does help to some degree with her low back pain. I discussed in detail with the patient regarding resubmitting approval for lumbar medial branch block L4-5, L5-S1 bilaterally. She wishes to proceed. Objective:: Patient is awake alert [place] x3. In no acute distress. Flexion-extension lumbar spine somewhat guarded secondary to pain. Deep tendon reflexes upper and lower extremities normal. Motor strength upper and lower extremities normal. There is no gross sensory deficit. Gait is normal. Assessment:: Degenerative disc disease lumbar spine multilevels. Lumbar radiculopathy. Lumbar spondylosis. Multilevel lumbar facet arthropathy. Plan:: I discussed in detail with the patient regarding resubmitting approval for lumbar medial branch block L4-5, L5-S1. She wishes to proceed. I answered her questions. [facility] Disclaimer: The information contained in this section may have been updated after the patient was seen, as this information can be updated by other users. Social History Smoking Status: Current every day smoker tobacco type: e-cigarettes alcohol intake: never substance use type: former substance user and methamphetamine current occupational status: other Travel in the last 8 weeks: None household members: other housing: house current occupational exposures/hazards: No caffeine: Yes
== END ==
PROVIDERS: PCP Emergency Medicine; Visit Provider Nurse Anesthetist, Certified Registered
DX: M51.16 Intervertebral disc disorders with radiculopathy, lumbar region (principal); M47.26 Other spondylosis with radiculopathy, lumbar region
CPT/HCPCS: 99212; G0463

== ENCOUNTER 2022-07-14 12:52 | Day surgery (SDC) | payer MEDICAID, SELFPAY ==
[2022-07-14 13:00] VITALS: BP 148/89; PULSE 77; RESP 18; TEMP 36.5; O2SAT 97; BMI 29.5
[2022-07-14 13:21] VITALS: BP 152/79; PULSE 62; RESP 18; O2SAT 98
--- NOTE | 2022-07-14 13:24 | P.PCN_ITS ---
Procedure Date: 07/14/22 Time: 13:10 Anesthesiologist:: Parker Anand CRNA Complications:: None Pre-procedure Diagnosis:: Degenerative disc disease lumbar spine multilevels. Lumbar radiculopathy. Lumbar facet arthropathy. Lumbar spondylosis Post-procedure Diagnosis:: Same. Indications for Procedure:: Patient is a very pleasant 47-year-old female comes our clinic today for lumbar branch blocks/facet injections L4-5, L5-S1 bilaterally. Patient has low back pain she describes as constant, dull, aching. Patient has difficulty standing for any length of time. She has difficulty with flexion, extension left and right rotation. Procedure Details:: Informed consent was obtained and the risk and benefits of the procedure was explained to the patient. Patient was taken to the procedure room where noninvasive monitors were placed, including noninvasive blood pressure cuff as well as pulse oximeter. The area over the lumbar spine was cleansed using chlorhexidine as a cleansing solution. I anesthetized the skin and subcutaneous tissues with 1% Lidocaine. I placed 22-gauge spinal needles into the facet joint/ medial branches of L4-L5, and L5-S1] bilaterally. Needle placement was confirmed with fluoroscopy. After confirmation of needle placement, each site was injected with 1 mL of 1% lidocaine and 0.25 % Marcaine and 10 mg of Depo- Medrol. A total of 80 mg of depo medrol was used for bilateral medial branch blocks of L4-L5, and L5-S1] bilaterally. Patient tolerated the procedure without difficulty. There were no complications. Plan and Disposition:: Patient was discharged without incident. Patient was reevaluated 10 minutes post procedure. She reports no pain in the low back while standing, flexion and extension.
[2022-07-14 13:29] VITALS: BP 139/82; PULSE 66; RESP 18; O2SAT 97
== END 2022-07-14 13:29 | disposition home or self-care (01) ==
PROVIDERS: PCP Emergency Medicine; Visit Provider Nurse Anesthetist, Certified Registered
DX: M51.16 Intervertebral disc disorders with radiculopathy, lumbar region (principal); M47.896 Other spondylosis, lumbar region
CPT/HCPCS: 64493; 64494; J1040

== ENCOUNTER → 2022-08-03 13:22 | Outpatient (POV) | payer MEDICAID, SELFPAY ==
--- NOTE | 2022-08-03 13:37 | EXP.PAIN.SOA ---
[facility] Pain Management SOAP Note Subjective:: Patient is a pleasant 47-year-old female who presents today for follow-up of lumbar medial branch block bilaterally of L4-L5 and L5-S1 on 07/14/2022. We are currently treating the patient for degenerative disc disease of lumbar spine with lumbar radiculopathy symptoms, lumbar spondylosis, multilevel lumbar facet arthropathy. Today she rates her pain a 4 out of 10. She states that she has at least had 70 to 80% improvement following this injection and feels like it is still continuing to provide additional relief. Patient has been able to increase her activity with decreased pain symptoms. Patient states doing activities of daily living has been easier and she feels like she has overall increased functionality. Patient is currently managed with gabapentin 800 mg 4 times a day and [place] 10 mg 4 times a day from her primary care doctor. Patient denies any side effects from this medication. Her Tyree is [id number]. Its been reviewed and appropriate. Review of Systems: General: No recent weight changes, no fever, no sleep disturbances Respiratory: No cough, no shortness of air, no recurring pulmonary infections Cardiovascular/peripheral vascular: No chest pain, no palpitations, no edema, no shortness of breath Gastrointestinal: No new onset incontinence, normal bowel movements reported Genitourinary: No new onset incontinence Musculoskeletal: Low back pain Psychiatric: [Normal mood/affect] Neurological: [Denies weakness in extremities], [denies balance issues] Objective:: Physical Exam: General: Alert and oriented x3, no acute distress, pleasant and cooperative Lungs: Respirations even and unlabored, symmetrical chest expansion Eyes: PERRL Musculoskeletal: Flexion and extension of lumbar [spine] somewhat guarded secondary to pain, [antalgic gait noted] Neurological: Speech clear, no gross sensory deficit Assessment:: Degenerative disc disease of lumbar spine with lumbar radiculopathy symptoms, lumbar facet arthropathy, lumbar spondylosis Plan:: Patient has had upwards of 70 to 80% improvement following these injections and does not require any additional injective therapy at this time. Patient will return to clinic in 1 month for reevaluation of symptoms and plan of care. Patient has been instructed to contact the clinic with any concerns before the next appointment. Dr. Lee has reviewed this note and agrees with this plan of care. This note was dictated using voice recognition software and make contain errors or omissions. [facility] Disclaimer: The information contained in this section may have been updated after the patient was seen, as this information can be updated by other users. Social History Smoking Status: Current every day smoker tobacco type: e-cigarettes alcohol intake: never substance use type: former substance user and methamphetamine current occupational status: other Travel in the last 8 weeks: None household members: other housing: house current occupational exposures/hazards: No caffeine: Yes
[2022-08-03 13:52] VITALS: BP 137/85; PULSE 76; RESP 18; O2SAT 97; BMI 29.0
== END ==
PROVIDERS: PCP Emergency Medicine; Visit Provider Nurse Practitioner Family
DX: M51.16 Intervertebral disc disorders with radiculopathy, lumbar region (principal); M47.26 Other spondylosis with radiculopathy, lumbar region
CPT/HCPCS: 99212; G0463

== ENCOUNTER → 2022-08-10 11:32 | Outpatient (POV) | payer MEDICAID, SELFPAY ==
--- NOTE | 2022-08-10 12:01 | EXP.PAIN.SOA ---
[facility] Pain Management SOAP Note Subjective:: Patient is a pleasant 47-year-old female who presents today for follow-up. We are currently treating the patient for degenerative disc disease of lumbar spine with lumbar radiculopathy symptoms, lumbar spondylosis, lumbar facet arthropathy. Today she rates her pain a 7 out of 10. Patient denies any new trauma or injury. Patient denies any change location or type of pain she experiences. Patient was saw the last week following her lumbar medial branch block bilaterally of L4-L5 and L5-S1 that she did have upwards of 80% improvement following this injection. She states today that she feels like it has now worn off and she is back to her baseline. Previously she was able to increase her activity and even stand up straight with decreased pain symptoms. Patient states her pain is an aching, throbbing sensation that is worse with increased activity. It does interfere with her ability to perform activities of daily living. Patient is currently managed with [place] 10 mg 4 times a day and gabapentin 800 mg 4 times a day from Dr. Matt's office. Patient denies any side effects from this medication. She does also try and use Tylenol and ibuprofen occasionally on the side however she states that the ibuprofen will occasionally upset her stomach. Patient has tried heat and ice and topicals with minimal relief along with physical therapy and at home stretching and exercise. Her Tyree is [id number]. Its been reviewed and appropriate. Review of Systems: General: No recent weight changes, no fever, no sleep disturbances Respiratory: No cough, no shortness of air, no recurring pulmonary infections Cardiovascular/peripheral vascular: No chest pain, no palpitations, no edema, no shortness of breath Gastrointestinal: No new onset incontinence, normal bowel movements reported Genitourinary: No new onset incontinence Musculoskeletal: Low back pain Psychiatric: [Normal mood/affect] Neurological: [Denies weakness in extremities], [denies balance issues] Objective:: Physical Exam: General: Alert and oriented x3, no acute distress, pleasant and cooperative Lungs: Respirations even and unlabored, symmetrical chest expansion Eyes: PERRL Musculoskeletal: Flexion and extension of lumbar [spine] somewhat guarded secondary to pain, [antalgic gait noted] Neurological: Speech clear, no gross sensory deficit Assessment:: Degenerative disc disease of lumbar spine with lumbar radiculopathy symptoms, lumbar spondylosis, lumbar facet arthropathy Plan:: Patient is experiencing worsening pain in her low back with limited range of motion over the lumbar spine. Previously patient had upwards of 80% relief with her first medial branch block. I have discussed with the patient that she may benefit from a second lumbar medial branch block. Risk and benefits were discussed with the patient and she would like to proceed forward with this plan of care. Patient is not on any blood thinners. We will schedule the patient for a lumbar medial branch block bilaterally of L4-L5 and L5-S1. Patient has been instructed to contact the clinic with any concerns before the next appointment. Dr. Lee has reviewed this note and agrees with this plan of care. This note was dictated using voice recognition software and make contain errors or omissions. [facility] Disclaimer: The information contained in this section may have been updated after the patient was seen, as this information can be updated by other users. Social History Smoking Status: Current every day smoker tobacco type: e-cigarettes alcohol intake: never substance use type: former substance user and methamphetamine current occupational status: other Travel in the last 8 weeks: None household members: other housing: house current occupational exposures/hazards: No caffeine: Yes
[2022-08-10 12:39] VITALS: BP 154/88; PULSE 74; RESP 18; O2SAT 97; BMI 29.5
== END ==
PROVIDERS: PCP Emergency Medicine; Visit Provider Nurse Practitioner Family
DX: M51.16 Intervertebral disc disorders with radiculopathy, lumbar region (principal); M47.26 Other spondylosis with radiculopathy, lumbar region
CPT/HCPCS: 99212; G0463

== ENCOUNTER 2022-08-18 13:34 | Day surgery (SDC) | payer MEDICAID, SELFPAY ==
[2022-08-18 13:44] VITALS: BP 136/79; PULSE 75; RESP 18; TEMP 36.2; O2SAT 98; BMI 29.0
[2022-08-18 14:09] VITALS: BP 146/77; PULSE 71; RESP 18; O2SAT 96
[2022-08-18 14:11] VITALS: BP 146/77; PULSE 71; RESP 18; O2SAT 96
[2022-08-18 14:14] VITALS: BP 143/70; PULSE 60; RESP 18; O2SAT 98
--- NOTE | 2022-08-18 14:16 | P.PCN_ITS ---
Procedure Date: 08/18/22 Time: 14:00 Anesthesiologist:: Parker Anand CRNA Complications:: None Pre-procedure Diagnosis:: Degenerative disc lumbar spine multilevels. Lumbar radiculopathy. Lumbar spondylosis. Multilevel lumbar facet arthropathy. Post-procedure Diagnosis:: Same. Indications for Procedure:: Patient is a very pleasant 47-year-old female comes our clinic today for repeat bilateral lumbar medial branch block/facet block L4-5, L5-S1. Patient had moderate to significant improvement terms of her overall low back pain as well as bilateral hip and leg pain with her first round of blocks at the same levels. Patient describes low back pain as constant, dull, aching. Patient describes having axial back pain. Difficulty with flexion, extension, left and right rotation. Procedure Details:: Informed consent was obtained and the risk and benefits of the procedure was explained to the patient. Patient was taken to the procedure room where noninvasive monitors were placed, including noninvasive blood pressure cuff as well as pulse oximeter. The area over the lumbar spine was cleansed using chlorhexidine as a cleansing solution. I anesthetized the skin and subcutaneous tissues with 1% Lidocaine. I placed 22-gauge spinal needles into the facet joint/ medial branches of L4-L5, and L5-S1 bilaterally. Needle placement was confirmed with fluoroscopy. After confirmation of needle placement, each site was injected with 1 mL of 1% lidocaine and 0.25 % Marcaine and 10 mg of Depo- Medrol. A total of 80 mg of depo medrol was used for bilateral medial branch blocks of L4-L5, and L5-S1 bilaterally. Patient tolerated the procedure without difficulty. There were no complications. Plan and Disposition:: Patient was discharged without incident.
== END 2022-08-18 14:14 | disposition home or self-care (01) ==
PROVIDERS: PCP Emergency Medicine; Visit Provider Nurse Anesthetist, Certified Registered
DX: M51.16 Intervertebral disc disorders with radiculopathy, lumbar region (principal); M47.26 Other spondylosis with radiculopathy, lumbar region
CPT/HCPCS: 64493; 64494; J1040

== ENCOUNTER → 2022-09-02 14:45 | Outpatient (CLI) | payer MEDICAID, SELFPAY | PROVIDERS: PCP Emergency Medicine; Visit Provider Emergency Medicine | DX: Z79.899 Other long term (current) drug therapy (principal) ==

== ENCOUNTER → 2022-09-02 19:27 | Outpatient (CLI) | payer MEDICAID, SELFPAY ==
[2022-09-02 21:41] LABS: Amphetamine/Metha Screen,Urine Negative ng/ml (<1000); Barbiturates Screen,Urine Negative ng/ml (<200)
[2022-09-02 21:42] LABS: Benzodiazepines Screen,Urine Negative ng/ml (<200)
[2022-09-02 21:43] LABS: Cannabinoid Screen,Urine Negative ng/ml (<50); Cocaine Screen,Urine Negative ng/ml (<300)
[2022-09-02 21:44] LABS: Methadone Screen,Urine Negative ng/ml (<300); Opiate Screen,Urine Positive ng/ml (<300)
[2022-09-02 21:45] LABS: Phencyclidine Screen,Urine Negative ng/ml (<25)
== END ==
PROVIDERS: PCP Emergency Medicine; Visit Provider Emergency Medicine
DX: Z79.899 Other long term (current) drug therapy (principal)
CPT/HCPCS: 80305

== ENCOUNTER → 2022-09-07 14:59 | Outpatient (POV) | payer MEDICAID, SELFPAY ==
[2022-09-07 15:06] VITALS: BP 173/85; PULSE 59; RESP 18; O2SAT 97; BMI 28.5
--- NOTE | 2022-09-07 15:16 | EXP.PAIN.SOA ---
[facility] Pain Management SOAP Note Subjective:: Patient is a pleasant 47-year-old female who presents today for follow-up of lumbar medial branch block bilaterally L4-L5 and L5-S1. We are currently treating the patient for degenerative disc disease of lumbar spine multilevels with lumbar radiculopathy symptoms, lumbar spondylosis, lumbar facet arthropathy. Today she rates her pain a 5 out of 10. Patient states that she did have 100% relief however only lasting for a few hours. Previously with her first medial branch block she did have 80% improvements lasting 2 weeks. Patient denies any new injury or trauma. Patient states she continues to have pain there at her low back and describes it as a aching, throbbing sensation that is worse with increased activity. It does interfere with her ability to perform activities of daily living such as cooking and cleaning. Previously with her injections she was able to increase her activity with decreased pain symptoms and felt like she had better overall function. Patient has tried [id number]-[id number] medications such as Tylenol and ibuprofen along with scheduled medications of [place] 10 mg 4 times a day and gabapentin 800 mg 4 times a day written by Dr. Matt's office. Patient has also tried heat and ice and topicals with minimal improvement. She has done physical therapy with no additional relief and continues to do at home exercising and stretching. Patient Tyree ES [id number]. Its been reviewed and appropriate. Review of Systems: General: No recent weight changes, no fever, no sleep disturbances Respiratory: No cough, no shortness of air, no recurring pulmonary infections Cardiovascular/peripheral vascular: No chest pain, no palpitations, no edema, no shortness of breath Gastrointestinal: No new onset incontinence, normal bowel movements reported Genitourinary: No new onset incontinence Musculoskeletal: Low back pain Psychiatric: [Normal mood/affect] Neurological: [Denies weakness in extremities], [denies balance issues] s Objective:: Physical Exam: General: Alert and oriented x3, no acute distress, pleasant and cooperative Lungs: Respirations even and unlabored, symmetrical chest expansion Eyes: PERRL Musculoskeletal: Flexion and extension of lumbar [spine] somewhat guarded secondary to pain, [antalgic gait noted] positive Kemps test Neurological: Speech clear, no gross sensory deficit Assessment:: Degenerative disc disease of lumbar spine multilevels with lumbar radiculopathy symptoms, lumbar spondylosis, lumbar facet arthropathy Plan:: Patient has had 2 medial branch blocks that did provide significant relief however only lasting short-term. I have discussed with the patient that she may benefit from a lumbar RFA. Risk and benefits were discussed with the patient and she would like to proceed forward with this plan of care. Patient is not on any blood thinners. We will schedule the patient for lumbar RFA bilaterally L4-L5, L5-S1. Patient has been instructed to contact the clinic with any concerns before the next appointment. Dr. Lee has reviewed this note and agrees with this plan of care. This note was dictated using voice recognition software and make contain errors or omissions. [facility] Disclaimer: The information contained in this section may have been updated after the patient was seen, as this information can be updated by other users. Social History Smoking Status: Current every day smoker tobacco type: e-cigarettes alcohol intake: never substance use type: former substance user and methamphetamine current occupational status: other Travel in the last 8 weeks: None household members: other housing: house current occupational exposures/hazards: No caffeine: Yes
== END ==
PROVIDERS: PCP Emergency Medicine; Visit Provider Nurse Practitioner Family
DX: M51.16 Intervertebral disc disorders with radiculopathy, lumbar region (principal); M47.26 Other spondylosis with radiculopathy, lumbar region
CPT/HCPCS: 99212; G0463

== ENCOUNTER → 2022-09-08 09:53 | Outpatient (CLI) | payer MEDICAID, SELFPAY ==
--- NOTE | 2022-09-08 09:55 | XR_ITS ---
FINAL REPORT CLINICAL HISTORY: rt knee pain, swelling, knee buckling, ACL reconstruction 1997 COMPARISON: 12/04/2021 FINDINGS: Right knee Three views were obtained. There is no acute fracture or dislocation. There are postoperative changes from ACL repair. Mild degenerative changes are present. There is a small joint effusion. IMPRESSION: Postoperative changes from ACL repair. Small joint effusion. Reviewed, Interpreted and Dictated by Jose Combs III, MD Transcribed by Ade Gomez Authenticated and [facility]
== END ==
PROVIDERS: PCP Emergency Medicine; Visit Provider Orthopaedic Surgery
DX: M25.561 Pain in right knee (principal)
CPT/HCPCS: 73562

== ENCOUNTER → 2022-09-14 15:05 | Outpatient (CLI) | payer MEDICAID, SELFPAY ==
--- NOTE | 2022-09-14 15:08 | XR_ITS ---
FINAL REPORT TECHNIQUE: 5 views CLINICAL HISTORY: LBP x yrs, worsened x last few mos, NKT. Radiates down bilat legs, pain worse on Rt side. FINDINGS: There is no fracture present. There is no malalignment. There is disc space narrowing at multiple levels with anterior osteophytes and sclerosis predominantly at the L4-5 and L5-S1 levels. IMPRESSION: No acute process. Degenerative change as described predominantly at the L4-5 and L5-S1 levels. Reviewed, Interpreted and Dictated by Mikey Rivera MD Transcribed by Salud Esqueda Authenticated and [facility]
== END ==
PROVIDERS: PCP Emergency Medicine; Visit Provider Nurse Practitioner Family
DX: M54.50 Low back pain, unspecified (principal)
CPT/HCPCS: 72110

== ENCOUNTER 2022-09-15 12:54 | Day surgery (SDC) | payer MEDICAID, SELFPAY ==
[2022-09-15 13:04] VITALS: BP 137/74; PULSE 72; RESP 18; TEMP 36.4; O2SAT 94; BMI 27.6
[2022-09-15 13:16] VITALS: BP 122/65; PULSE 76; RESP 18; O2SAT 97
[2022-09-15 13:17] VITALS: BP 122/65; PULSE 76; RESP 18; O2SAT 97
[2022-09-15 13:26] VITALS: BP 133/67; PULSE 73; RESP 18; O2SAT 94
--- NOTE | 2022-09-15 13:28 | P.PCN_ITS ---
Procedure Date: 09/15/22 Time: 13:15 Anesthesiologist:: Parker Anand CRNA Complications:: None Pre-procedure Diagnosis:: Degenerative disc disease lumbar spine multilevels. Lumbar radiculopathy. Lumbar spondylosis. Post-procedure Diagnosis:: Same. Indications for Procedure:: Very pleasant 47-year-old female that comes our clinic today for radiofrequency ablation bilateral L4-5, L5-S1 levels. Patient responded well to her first medial branch block at the same level. Less relief with the second round at the same level. She complains of low back pain that is constant, dull, aching. Also complains of bilateral hip and leg radicular symptoms at times. She rates her pain 7/10. Procedure Details:: Procedure Details: Lumbar RFA Informed consent was obtained and the risk and benefits of the procedure was explained to the patient. Patient was placed prone on the procedure table. The patient was prepped and draped in sterile fashion. C-arm fluoroscopy was used to view the lumbar spine. The skin and subcutaneous tissues were anesthetized using lidocaine. I placed 20-gauge RF needles into the facet joints of the bilateral L4-L5 and L5-S1. We underwent sensory stimulation. There is good sensory stimulation at 0.8 V. We underwent motor stimulation. There is no motor stimulation at 2 V. We then anesthetized these levels with lidocaine and Depo- Medrol. I used a total of 40 mg Depo-Medrol for all 3 levels. I then burned all 3 levels of L4-5 and L5-S1 on the bilateral side for 4 minutes at 80 ?C. Patient tolerated the procedure well with no complication. Plan and Disposition:: Patient was discharged without incident.
--- NOTE | 2022-09-15 13:32 | MR_ITS ---
FINAL REPORT CLINICAL HISTORY: Rt knee pain posterior knee pain popping hx of surgery to knee FINDINGS: Multi planar MR imaging was performed of the right knee. There is magnetic artifact from orthopedic hardware in the lateral femoral condyle and medial tibial plateau consistent with prior ACL repair. The ACL graft is intact. The posterior cruciate ligament is intact. The quadriceps and patellar tendons are intact. There is abnormal flattening of the anterior and posterior horn of the medial meniscus. There is linear signal in the posterior horn of the medial meniscus consistent with a tear. The lateral meniscus is intact. The medial and lateral collateral ligaments appear intact. The medial and lateral retinacula appear intact. There is no evidence of bone marrow edema or osteochondral defect. There is narrowing of the lateral articular facet of the patellofemoral joint. No evidence of soft tissue inflammatory reaction. 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 Intact ACL graft. Reviewed, Interpreted and Dictated by Mikey Rivera MD Transcribed by Michele Rosas Authenticated and [facility]
== END 2022-09-15 13:26 | disposition home or self-care (01) ==
PROVIDERS: PCP Emergency Medicine; Visit Provider Nurse Anesthetist, Certified Registered
DX: M51.16 Intervertebral disc disorders with radiculopathy, lumbar region (principal); M47.26 Other spondylosis with radiculopathy, lumbar region
CPT/HCPCS: 64636; 64635; 73721; J1030

== ENCOUNTER → 2022-10-12 14:43 | Outpatient (POV) | payer MEDICAID, SELFPAY ==
[2022-10-12 14:58] VITALS: BP 154/87; PULSE 73; RESP 18; O2SAT 99; BMI 28.3
--- NOTE | 2022-10-12 14:59 | EXP.PAIN.SOA ---
[facility] Pain Management SOAP Note Subjective:: Patient is a pleasant 47-year-old female who presents today for follow-up. We are currently treating the patient for degenerative disc disease of lumbar spine with lumbar radiculopathy symptoms, lumbar spondylosis, lumbar facet arthropathy. Today she rates her pain a 5 out of 10. She does state that she is starting to experience a little bit more low back pain that does radiate into her hips and legs. She does describe this as a aching, throbbing sensation that is worse with increased activity. It does interfere with her ability to perform activities of daily living such as cooking and cleaning. Patient did previously have a lumbar medial branch block bilaterally L4-L5 and L5-S1 on 09/15/2022 that did provide 100% relief and she states that she is still getting some improvement with this. She does state that she felt like it helped 1 side more than the other. Patient is currently managed with [place] 10 mg 4 times a day and gabapentin 800 mg 4 times a day by Dr. Matt's office. She denies any side effects from this medication. Patient has tried and failed conservative therapy such as oral medications, heat and ice, topicals, physical therapy, at home stretching and exercise for longer than 6 weeks. Her Tyree is [id number]. Its been reviewed and appropriate. Review of Systems: General: No recent weight changes, no fever, no sleep disturbances Respiratory: No cough, no shortness of air, no recurring pulmonary infections Cardiovascular/peripheral vascular: No chest pain, no palpitations, no edema, no shortness of breath Gastrointestinal: No new onset incontinence, normal bowel movements reported Genitourinary: No new onset incontinence Musculoskeletal: Low back pain, bilateral hip pain, leg pain Psychiatric: [Normal mood/affect] Neurological: [Denies weakness in extremities], [denies balance issues] Objective:: Physical Exam: General: Alert and oriented x3, no acute distress, pleasant and cooperative Lungs: Respirations even and unlabored, symmetrical chest expansion Eyes: PERRL Musculoskeletal: Flexion and extension of lumbar [spine] somewhat guarded secondary to pain, [antalgic gait noted] Neurological: Speech clear, no gross sensory deficit Assessment:: Degenerative disc disease of lumbar spine with lumbar radiculopathy symptoms, lumbar facet arthropathy, lumbar spondylosis Plan:: Patient is experiencing more pain in her low back with radiating symptoms into her hip/legs. Patient did have limited range of motion of her lumbar spine during today's visit. I have discussed with the patient that she may benefit from lumbar epidural steroid injection. Risk and benefits were discussed with the patient and she would like to proceed forward with this plan of care. Patient is not on any blood thinners. We will schedule the patient for an LESI L4-L5. Patient has been instructed to contact the clinic with any concerns before the next appointment. Dr. Lee has reviewed this note and agrees with this plan of care. This note was dictated using voice recognition software and make contain errors or omissions. [facility] Disclaimer: The information contained in this section may have been updated after the patient was seen, as this information can be updated by other users. Social History Smoking Status: Current every day smoker tobacco type: e-cigarettes alcohol intake: never substance use type: former substance user and methamphetamine current occupational status: other Travel in the last 8 weeks: None household members: other housing: house current occupational exposures/hazards: No caffeine: Yes
== END ==
PROVIDERS: PCP Emergency Medicine; Visit Provider Nurse Practitioner Family
DX: M51.16 Intervertebral disc disorders with radiculopathy, lumbar region (principal); M47.26 Other spondylosis with radiculopathy, lumbar region
CPT/HCPCS: 99212; G0463

== ENCOUNTER → 2022-10-28 14:40 | Outpatient (CLI) | payer MEDICAID, SELFPAY ==
[2022-10-28 18:49] LABS: Cannabinoid Screen,Urine Negative ng/ml (<50)
[2022-10-28 18:50] LABS: Methadone Screen,Urine Negative ng/ml (<300)
[2022-10-28 21:27] LABS: Amphetamine/Metha Screen,Urine Negative ng/ml (<1000)
[2022-10-28 22:19] LABS: Barbiturates Screen,Urine Negative ng/ml (<200); Benzodiazepines Screen,Urine Negative ng/ml (<200); Cocaine Screen,Urine Negative ng/ml (<300); Phencyclidine Screen,Urine Negative ng/ml (<25)
[2022-10-28 22:35] LABS: Opiate Screen,Urine Positive ng/ml (<300)
== END ==
PROVIDERS: PCP Emergency Medicine; Visit Provider Emergency Medicine
DX: Z79.899 Other long term (current) drug therapy (principal)
CPT/HCPCS: 80305

== ENCOUNTER → 2022-11-02 12:55 | Outpatient (POV) | payer MEDICAID, SELFPAY ==
--- NOTE | 2022-11-02 13:40 | A.OFFVIS_ITS ---
[facility] Pain Management SOAP Note Subjective:: Patient is a pleasant 47-year-old female who presents today for follow-up of insurance denial of lumbar epidural steroid injection. We are currently treating the patient for degenerative disc disease of lumbar spine with lumbar radiculopathy symptoms, lumbar facet arthropathy, lumbar spondylosis. Today she rates her pain a 6 out of 10. Patient denies any new trauma or injury. Patient denies any change to the location or type of pain she experiences. Patient states she continues to have constant debilitating pain in her low back with symptoms into her legs. Patient does describe this as an aching, throbbing sensation that is worse with increased activity. Patient is currently managed with [place] 10 mg 4 times a day and gabapentin 800 mg 4 times a day along with tizanidine 4 mg at bedtime from Dr. Matt's office. Patient denies any side effects from this medication. Her Tyree is [id number]. Its been reviewed and appropriate. Review of Systems: General: No recent weight changes, no fever, no sleep disturbances Respiratory: No cough, no shortness of air, no recurring pulmonary infections Cardiovascular/peripheral vascular: No chest pain, no palpitations, no edema, no shortness of breath Gastrointestinal: No new onset incontinence, normal bowel movements reported Genitourinary: No new onset incontinence Musculoskeletal: Low back pain, leg pain Psychiatric: [Normal mood/affect] Neurological: [Denies weakness in extremities], [denies balance issues] Objective:: Physical Exam: General: Alert and oriented x3, no acute distress, pleasant and cooperative Lungs: Respirations even and unlabored, symmetrical chest expansion Eyes: PERRL Musculoskeletal: Flexion and extension of lumbar [spine] somewhat guarded secondary to pain, [antalgic gait noted] Neurological: Speech clear, no gross sensory deficit Assessment:: Degenerative disc disease of lumbar spine with lumbar radiculopathy symptoms, lumbar facet arthropathy, lumbar spondylosis Plan:: Patient continues to experience significant pain in her low back and legs with limited range of motion. I have discussed with the patient that she was denied from insurance due to not having recent physical therapy. Will order evaluation and treatment by physical therapy for her low back pain. Patient will return to clinic in 1 month for reevaluation of symptoms and plan of care. Patient has been instructed to contact the clinic with any concerns before the next appointment. Dr. Lee has reviewed this note and agrees with this plan of care. This note was dictated using voice recognition software and make contain errors or omissions. [facility] Disclaimer: The information contained in this section may have been updated after the patient was seen, as this information can be updated by other users. Social History Smoking Status: Current every day smoker tobacco type: e-cigarettes alcohol intake: never substance use type: former substance user and methamphetamine current occupational status: other Travel in the last 8 weeks: None household members: other housing: house current occupational exposures/hazards: No caffeine: Yes
[2022-11-02 14:01] VITALS: BP 139/88; PULSE 72; RESP 18; O2SAT 98; BMI 28.3
== END ==
PROVIDERS: PCP Emergency Medicine; Visit Provider Nurse Practitioner Family
DX: M51.16 Intervertebral disc disorders with radiculopathy, lumbar region (principal); M47.26 Other spondylosis with radiculopathy, lumbar region
CPT/HCPCS: 99212; G0463

== ENCOUNTER → 2022-11-19 14:56 | Outpatient (CLI) | payer MEDICAID, SELFPAY ==
--- NOTE | 2022-11-19 14:58 | ECG_ITS ---
APPROVED REPORT Exam: Resting ECG HR:54 bpm ECG Measurements Heart Rate 54 AXES FL 143 P 55 QRSd 86 QRS 0 QT 477 T 32 QTc 464 Conclusion SINUS BRADYCARDIA BORDERLINE ECG UNCONFIRMED REPORT Electronically signed by : Delonte Alva MD 11/19/2022 16:37:51
--- NOTE | 2022-11-19 15:24 | XR_ITS ---
FINAL REPORT TECHNIQUE: Chest PA & Lateral CLINICAL HISTORY: Rt knee pain, pre op clearance , hypertension COMPARISON: None FINDINGS: 2 views of the chest were performed. The heart size is normal. The mediastinum is within normal limits. There is no acute cardiopulmonary process. There are no pleural effusions. There is no pneumothorax. The bony thorax appears intact. IMPRESSION: No acute cardiopulmonary process. Reviewed, Interpreted and Dictated by Mikey Rivera MD Transcribed by Joann Rider Authenticated and [facility]
[2022-11-19 15:34] LABS: Basophils % 0.5 % (0.1-2.0); Eosinophils # 0.5 K/mm3 (0.0-0.4); Eosinophils % 5.8 % (0.1-12.0); Hematocrit 41.7 % (37.0-47.0); Hemoglobin 13.5 g/dL (12.2-16.2); Lymphocytes # 2.2 K/mm3 (0.7-4.5); Lymphocytes % 28.5 % (10-50); Mean Corpuscular HGB Conc 32.5 g/dL (31.8-35.4); Mean Corpuscular Hemoglobin 29.4 pg (27.0-31.2); Mean Corpuscular Volume 90.6 fl (81-99); Mean Platelet Volume 7.8 fl (7.4-10.4); Monocytes # 0.4 K/mm3 (0.1-1.0); Monocytes % 4.5 % (1.7-9.3); Neutrophils # 4.8 K/mm3 (1.8-7.8); Neutrophils % 60.6 % (37.0-80.0); Platelet Count 300 K/mm3 (142-424); Red Cell Distribution Width 14.1 % (11.5-17.5); White Blood Count 7.8 K/mm3 (4.8-10.8)
[2022-11-19 17:13] LABS: Alanine Aminotransferase 31 U/L (12-78); Albumin Level 4.7 g/dl (3.5-5.0); Albumin/Globulin Ratio 1.6 (1.1-1.8); Alkaline Phosphatase 90 U/L (38-126); Anion Gap 17.4 mEq/L (5-15); Aspartate Amino Transferase 31 U/L (14-36); Bilirubin,Total 0.6 mg/dl (0.2-1.3); Blood Urea Nitrogen 12 mg/dl (7-17); Calcium 9.7 mg/dl (8.4-10.2); Carbon Dioxide 23 mmol/L (22.0-30.0); Chloride 104 mmol/L (98-107); Estimated Glomerular Filt Rate 90 ml/min (>60); GFR (African American) 109 ML/MIN (>60); Globulin 2.9 g/dL (1.3-3.2); Glucose 107 mg/dl (74-100); Potassium 4.4 mmoL/L (3.5-5.1); Sodium 140 mmol/L (136-145); Total Protein,Serum 7.6 g/dl (6.3-8.2)
== END ==
PROVIDERS: PCP Emergency Medicine; Visit Provider Orthopaedic Surgery
DX: M25.561 Pain in right knee (principal); S83.231A Complex tear of medial meniscus, current injury, right knee, initial encounter; Z01.818 Encounter for other preprocedural examination
CPT/HCPCS: 36415; 71046; 80053; 85025; 93005

== ENCOUNTER 2022-12-02 06:06 | Day surgery (SDC) | payer MEDICAID, SELFPAY ==
[2022-11-27 12:44] VITALS: BMI 26.8
[2022-12-02] VITALS (15 sets, daily range): BP systolic 111–141; BP diastolic 44–83; PULSE 48–66; RESP 14–20; TEMP 36.3–43; O2SAT 95–100
[2022-12-02 06:44] LABS: Urine Pregnancy, HCG Qual. Negative (Negative)
--- NOTE | 2022-12-02 07:29 | P.PNANES_ITS ---
[facility] Disclaimer: The information contained in this section may have been updated after the patient was seen, as this information can be updated by other users. Medical History Hypertension Surgical History (Updated 12/02/22 @ 06:40 by Humberto Cantrell RN) History of lumbar surgery History of right knee surgery Family History Other Lung cancer Social History Smoking Status: Current every day smoker tobacco type: e-cigarettes alcohol intake: current substance use type: former substance user and methamphetamine current occupational status: other Travel in the last 8 weeks: None household members: other housing: house current occupational exposures/hazards: No caffeine: Yes [facility] Anesthesia Checklist Patient Identification Patient Identification: Arm Band Structural Data Admitted From: Home Planned Operative Procedure/s: Right Knee Arthroscopy Consent for Planned Operative Procedure(s) Verified: Yes Verified Documents: Surgical Consent and History and Physical NPO Status Verified Time NPO: 00:00 Additional verifications Anesthesia Reactions: No Hx Blood Transfusions: No Blood Transfusion Reaction: No Airway Assessment Mallampati Score:: Class II C-Spine Mobility Assessed: Yes TMJ Mobility Assessed: Yes Dentition: Edentulous Neurological Assessment Level of Consciousness: Awake and Alert Anesthesia Plan Anesthesia Risk discussed: Yes Anesthesia Plan: Verified ASA Class: II Anesthesia Type: General
--- NOTE | 2022-12-02 08:26 | P.PNANES_ITS ---
[facility] Anesthesia Record Part I Anesthesia Record I Intake, IV Amount: 400 Hydration: Adequate Estimated blood loss (mL): 5 Urine output (mL): 0 Blood Products used (#): none Blood Pressure: 122/76 SaO2: 99 Pulse Rate: 50 Airway Patency: Patent Respiratory Rate: 16 Temperature: 97.3 F Patient is:: Drowsy and Stable Stable to PACU at:: 08:25
--- NOTE | 2022-12-02 08:33 | EXP.OP.NOTE ---
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 Right knee arthroscopy with partial medial meniscectomy 2. Right knee arthroscopy with excision of engaging medial plica 3. Right knee arthroscopy with chondroplasty medial femoral condyle and trochlea Surgeon:: Parmjit Silva DO PROGRAM SPECIALIST:: Dustin Caraballo Anesthesia: GETA Estimated blood loss (mL): 0 Operative findings:: As above Operative note:: Patient was identified preoperatively. Right knee marked with a yes my initials. Transported to operative suite. Placed supine upon operating bed. General anesthesia administered. Airway secured. Right lower extremity was then prepped and draped in normal sterile fashion. Once prepped and draped final operative timeout performed to identify proper patient procedure and extremity. Everyone involved in the case agreed. There were no counter indications to beginning. She did receive preoperative antibiotics. . Marking pen was used to nancy bony landmarks of the knee and standard portal sites. Esmarch was used to exsanguinate the extremity. Pneumatic tourniquet inflated to 300 mmHg. Skin knife was used to incise standard anterior lateral portal. Blunt with trocar was placed in the patellofemoral joint. This was exchanged with a camera. Swept directly into the medial joint line. There was evidence of a large medial engaging plica. Within the medial joint line anterior medial portal was made under direct visualization with an 18-gauge spinal needle. This exchanged with a probe. There was a large tear of the body of the medial meniscus that was incarcerated in the knee. Also tearing of the posterior horn and body of the medial meniscus. Using a combination of straight biter sucker shaver partial medial meniscectomy was performed back to [facility]. There was unfortunately a large groove and the cartilage on the medial femoral condyle where this meniscus tear was sitting. This caused an area of grade IV chondromalacia in the medial femoral condyle. There was loose ankur cartilage on the medial femoral condyle the chondroplasty was performed to remove this loose ankur cartilage. Attention was brought into the intercondylar notch where the ACL graft was seen and intact. There is some mild scarring in this area especially in the front part of the anterior compartment which was debrided with a sucker shaver. Attention was then brought to the lateral joint line within the lateral joint line the lateral meniscus was intact the lateral cartilage was relatively well-preserved there is a small area of chondromalacia on the medial aspect of the lateral tibia. Scope into the medial lateral gutters no loose bodies were seen. Camera is brought back in the patellofemoral joint where debridement of the medial engaging plica was performed. There was evidence of grade IV chondromalacia of the trochlea with some loose ankur cartilage which was debrided with chondroplasty. No further pathology was seen in the camera was removed the joint was drained. Local anesthesia infiltrated the portal sites skin closed with nylon stitch. Sterile dressing placed from toe to thigh. Patient waken anesthesia taken recovery in stable condition. Tourniquet time (min): 19 Condition: stable Disposition: PACU Complications:: None apparent
--- NOTE | 2022-12-02 10:31 | EXP.ANES.II ---
[facility] Anesthesia Record Part II Anesthesia Record Part II Discharge Time: 09:35 Destination: Surgical Day Care (OP Surgery) PACU nurse assessment reviewed?: Yes Patient Condition:: Good Anesthesia Complications:: None Swallowing reflex intact?: Yes Airway Patency: Patent Cyanosis?: No Blood Pressure: 120/72 SaO2: 96 Respiratory Rate: 16 Pulse Rate: 58 Temperature: 97.8 F Mental Status: Alert & Oriented Pain level:: 6 Nausea and/or vomitting:: None Intake, IV Amount: 0 Hydration: Adequate
== END 2022-12-02 10:05 | disposition home or self-care (01) ==
PROVIDERS: PCP Emergency Medicine; Visit Provider Orthopaedic Surgery
PROC: (CPT 29870; principal; 2022-12-02 07:30)
DX: M94.261 Chondromalacia, right knee (principal); I10 Essential (primary) hypertension; T14.90XS Injury, unspecified, sequela; S83.241A Other tear of medial meniscus, current injury, right knee, initial encounter; X58.XXXA Exposure to other specified factors, initial encounter
CPT/HCPCS: 29881; 29879; 29875; 81025; 96374; J2405

== ENCOUNTER 2022-12-10 16:00 | Outpatient (RCR) | payer MEDICAID, SELFPAY ==
--- NOTE | 2022-11-11 15:41 | HMH.PTOPEV ---
PT Outpatient Evaluation Rehab PT Outpatient Evaluation Start: 11/11/22 15:21 Freq: Status: Active Protocol: Document 11/11/22 15:21 SKYLAR (Rec: 11/11/22 15:37 SKYLAR [id number]) E-signed By Edi Mueller, PT Outpatient Therapy Subjective History Subjective History Patient is a 47 year old female presenting to outpatient PT with reports of chronic LBP with LLE radicular symptoms of insidious onset starting approx 15 years ago. She has previously received treatment from pain mangament and PT with minimal improvements noted. Comorbidities include hx of LS sx x 2, R knee meniscectomy, R knee ACL recon and HTN. Chief Complaint Pain,Stiff,Paresthesia Symptom Type Ache,Sharp,Numbness,Tingling Symptoms Relieved By Rest/Positioning,Ice, Prescription Meds Symptoms Aggravated By Sitting,Standing,Bending/ Stooping,Physical Activity, Walking,Lifting Prior Functional Limitations Housework,Standing,Walking, Bending/Stooping Current Functional Limitations Lifting,Housework,Standing, Walking,Bending/Stooping Symptom Description Constant but Variable Level of pain today (0-10) 6 Pain scale - at its best (0-10) 6 Pain scale - at its worst (0-10) 8 Lumbopelvic Eval Posture Thoracic Spine Posture Standing Position Increased Kyphosis Lumbar Spine Posture Standing Position Increased Lordosis Palapation tenderness bilateral lumbar spinal tenderness Yes: L4-S1 3/4 paraspinal tenderness Yes: Accessory Movement L4 bilateral L5 bilateral S1 bilateral Range of Motion Lumbar Spine Active Flexion Range of 41 Motion (degrees) Lumbar Spine Active Extension Range of 6 Motion (degrees) Left Lumbar Spine Lateral Flexion Active 14 Range of Motion (degrees) Right Lumbar Spine Lateral Flexion 8 Active Range of Motion (degrees) Lumbar Spine ROM Limitations Soft Tissue Tightness,Bony Restriction Manual Muscle Test Left Knee Extension Strength Grade 4 Good Knee Flexion Strength Grade 4 Good Hip Flexion Strength Grade 4 Good Extensor Hallucis Longus Strength Grade 4 Good Ankle Dorsiflexion Strength Grade 4 Good Gastronemius/Soleus Strength Grade 4 Good Right Knee Extension Strength Grade 4- Good- Knee Flexion Strength Grade 4 Good Hip Flexion Strength Grade 4- Good- Extensor Hallucis Longus Strength Grade 4 Good Ankle Dorsiflexion Strength Grade 4 Good Gastronemius/Soleus Strength Grade 4 Good Altered Sensation Left LE Dermatome Level L5,S1 Comment NT Special Tests Lumbar Spine Screen Positive Hip Parker (JEROME) Test Positive Left,Positive Right Hip Stanislav Test Positive Left,Positive Right Hip Piriformis Test Positive Left,Positive Right Ameya Test Positive Sacroiliac Joint Compression Test Negative Left Sacroiliac Joint Distraction Test Negative Left,Negative Right Lumbar [place] Distraction Test/Manual Positive Traction Oswestry Index Section 1 Pain Intensity The pain comes and goes and is severe Section 2 Personal Care (Washing,Dresing) unable to do any washing or dressing without help Section 3 Lifting lifting heavy weights off the floor, but I can manage light to medium Section 4 Walking I cannot walk more than 1/4 mile without increasing pain Section 6 Standing I cannot stand more than 1 hour without increasing pain Section 7 Sleeping Because of my pain, my normal night's sleep is less than 6 hours sleep Section 8 Social Life Pain has restricted my social life and I do not go out often Section 9 Traveling I get some pain when traveling , but none of my usual forms of travel m Section 10 Changing Degreee of Pain My pain is gradually getting worse Score and Risk Level Oswestry Risk Level Moderate Disability Outpatient Therapy Assessment Prognosis Rehab Potential Good Clinical Impression Consistent with Diagnosis Yes Short Term Goals Number of Weeks 2 Decrease Subjective C/O Pain Yes: 5/10 at worst Patient to be Ind w/ HEP Yes Skilled Nursing Goals Number of Weeks 4-6 Decreased Palpation Tenderness Yes: 1/4 Increase Range of Motion Yes: WNL Increase Strength Yes: 5/5 BLE/core Increase Ability to Walk Yes: 30 min without difficulty Increase Ability to Stand Yes: Restore Ability to Lift Objects to Waist Yes: 20 lb without difficulty Level Improve Ability For Household Care Yes Decrease Subjective C/O Pain Yes: 2/10 at worst Outpatient Therapy Plan of Care Treatment Plan May Include Therapeutic Exercise Including Home Yes Exercise Program Manual Therapy Techniques Yes Neuromuscular Re-education Yes Therapeutic Activities to Return to Yes Previous Functional/Work Level Gait Training Yes ADL/Self Care Education Yes Mechanical Traction Yes Dry Needling Yes Thermal Modalities Yes Electrical Stimulation Yes Ultrasound/Phonophoresis Yes Iontophoresis Yes Orthotics/Bracing/Splinting Yes Massage Yes Eval/Re-Eval Yes Frequency Times per week 2 Duration Number of Weeks 4-6 Addendums This patient is a candidate for social No or vocational rehab? Patient/Guardian verbally acknowledges Yes understanding of treatment program and consents to further treatment? Patient/Guardian verbally acknowledges Yes understanding of diagnosis, prognosis and goals for treatment? G -code Required No Eval Complexity PT Charges 07294 - Moderate Complexity Shoulder/Elbow Eval Shoulder Objective Measurements Elbow Objective Measurements PHYSICIAN CERTIFICATION: I certify the specified therapy services for Delaney Orellana are required, authorized, and reviewed every 30 days.
== END 2022-12-10 17:00 | disposition home or self-care (01) ==
LOC: PT 16:00
PROVIDERS: PCP Emergency Medicine; Visit Provider Nurse Practitioner Family
DX: M54.50 Low back pain, unspecified (principal)
CPT/HCPCS: 97010; 97014; 97110; 97140; 97163; G0283

== ENCOUNTER → 2022-12-15 11:00 | Outpatient (CLI) | payer MEDICAID, SELFPAY ==
[2022-12-15 19:56] LABS: Amphetamine/Metha Screen,Urine Negative ng/ml (<1000)
[2022-12-15 19:57] LABS: Barbiturates Screen,Urine Negative ng/ml (<200); Benzodiazepines Screen,Urine Negative ng/ml (<200)
[2022-12-15 19:58] LABS: Cannabinoid Screen,Urine Negative ng/ml (<50)
[2022-12-15 20:00] LABS: Cocaine Screen,Urine Negative ng/ml (<300); Methadone Screen,Urine Negative ng/ml (<300)
[2022-12-15 20:01] LABS: Opiate Screen,Urine Positive ng/ml (<300)
[2022-12-15 20:02] LABS: Phencyclidine Screen,Urine Negative ng/ml (<25)
== END ==
PROVIDERS: PCP Emergency Medicine; Visit Provider Emergency Medicine
DX: Z79.899 Other long term (current) drug therapy (principal)
CPT/HCPCS: 80305

== ENCOUNTER → 2022-12-21 14:05 | Outpatient (POV) | payer MEDICAID, SELFPAY ==
--- NOTE | 2022-12-21 14:35 | EXP.PAIN.SOA ---
[facility] Pain Management SOAP Note Subjective:: Patient is a pleasant 47-year-old female who presents today for follow-up. We are currently treating the patient for degenerative disc disease of lumbar spine with lumbar radiculopathy symptoms, lumbar facet arthropathy, lumbar spondylosis. Today she rates her pain a 6 out of 10. Patient states she has recently had right knee surgery. She states that she was just released from her postop restrictions. She states she has been using crutches to walk which may have aggravated her low back symptoms and into her hip along the left side. Patient does describe this as an aching, throbbing sensation that is worse with increased activity. Patient states occasionally she can even have pain radiating up into the left side of her neck. Patient is currently managed with tizanidine 4 mg at bedtime, [place] 10 mg 4 times a day and gabapentin 800 mg 4 times a day from Dr. Matt's office. She denies any side effects from this medication. She states that her pain along the left side into her hip seems unaffected by her medication. She states the pain does interfere with her ability perform activities of daily living such as cooking and cleaning. Patient had previously been going to physical therapy and getting some improvement however this had to be stopped due to her knee surgery. Patient states that she will be continuing her physical therapy however she has not started this back following her postop restrictions. She states that she did attempt to go 1 week postop after her knee surgery however they would not proceed forward until she had been cleared by her doctor. Her Tyree is [phone]. Its been reviewed and appropriate. \ Review of Systems: General: No recent weight changes, no fever, no sleep disturbances Respiratory: No cough, no shortness of air, no recurring pulmonary infections Cardiovascular/peripheral vascular: No chest pain, no palpitations, no edema, no shortness of breath Gastrointestinal: No new onset incontinence, normal bowel movements reported Genitourinary: No new onset incontinence Musculoskeletal: Low back pain, left hip pain Psychiatric: [Normal mood/affect] Neurological: [Denies weakness in extremities], [denies balance issues] Objective:: Physical Exam: General: Alert and oriented x3, no acute distress, pleasant and cooperative Lungs: Respirations even and unlabored, symmetrical chest expansion Eyes: PERRL Musculoskeletal: Flexion and extension of lumbar [spine] somewhat guarded secondary to pain, [antalgic gait noted] extreme point tenderness along left SI with positive left Harlan's, Thomas's, Gaenslen's, compression and distraction exam Neurological: Speech clear, no gross sensory deficit Assessment:: Degenerative disc disease of lumbar spine with lumbar radiculopathy symptoms, lumbar facet arthropathy, lumbar spondylosis, left-sided sacroiliitis Plan:: Patient is experiencing worsening symptoms of pain in her low back and left hip with limited range of motion. Patient had extreme point tenderness along her left hip with a positive left Harlan's, Thomas's, Gaenslen's, compression and distraction exam. I have discussed with the patient that she may benefit from a left SI injection. Risk and benefits were discussed with the patient and she would like to proceed forward with this plan of care. Patient will be scheduled for a left SI injection. Patient has been instructed to contact the clinic with any concerns before the next appointment. Dr. Lee has reviewed this note and agrees with this plan of care. This note was dictated using voice recognition software and make contain errors or omissions. [facility] Disclaimer: The information contained in this section may have been updated after the patient was seen, as this information can be updated by other users. Medical History Hypertension Surgical History (Reviewed 12/17/22 @ 11:24 by Mango
[2022-12-21 15:32] VITALS: BP 151/90; PULSE 64; RESP 18; O2SAT 98; BMI 27.1
== END ==
PROVIDERS: PCP Emergency Medicine; Visit Provider Nurse Practitioner Family
DX: M51.16 Intervertebral disc disorders with radiculopathy, lumbar region (principal); M47.26 Other spondylosis with radiculopathy, lumbar region; M46.1 Sacroiliitis, not elsewhere classified
CPT/HCPCS: 99212; G0463

== ENCOUNTER → 2023-02-10 08:57 | Outpatient (CLI) | payer MEDICAID, SELFPAY ==
[2023-02-10 20:06] LABS: Basophils % 0.3 % (0.1-2.0); Eosinophils # 0.3 K/mm3 (0.0-0.4); Eosinophils % 3.1 % (0.1-12.0); Hematocrit 37.5 % (37.0-47.0); Hemoglobin 12.5 g/dL (12.2-16.2); Lymphocytes # 3.1 K/mm3 (0.7-4.5); Lymphocytes % 35.3 % (10-50); Mean Corpuscular HGB Conc 33.5 g/dL (31.8-35.4); Mean Corpuscular Hemoglobin 30.6 pg (27.0-31.2); Mean Corpuscular Volume 91.5 fl (81-99); Mean Platelet Volume 8.7 fl (7.4-10.4); Monocytes # 0.4 K/mm3 (0.1-1.0); Monocytes % 4.4 % (1.7-9.3); Neutrophils % 56.8 % (37.0-80.0); Platelet Count 242 K/mm3 (142-424); Red Blood Count 4.09 M/mm3 (4.20-5.40); Red Cell Distribution Width 13.9 % (11.5-17.5); White Blood Count 8.8 K/mm3 (4.8-10.8)
[2023-02-10 20:29] LABS: Alanine Aminotransferase 25 U/L (12-78); Albumin Level 4.3 g/dl (3.5-5.0); Albumin/Globulin Ratio 1.7 (1.1-1.8); Alkaline Phosphatase 72 U/L (38-126); Aspartate Amino Transferase 27 U/L (14-36); Bilirubin,Total 0.3 mg/dl (0.2-1.3); Blood Urea Nitrogen 9 mg/dl (7-17); Calcium 9.3 mg/dl (8.4-10.2); Carbon Dioxide 28 mmol/L (22.0-30.0); Chloride 100 mmol/L (98-107); Chol/HDL Ratio 2.6 (1-3.5); Cholesterol 216 mg/dl (140-200); Estimated Glomerular Filt Rate 77 ml/min (>60); GFR (African American) 93 ML/MIN (>60); Globulin 2.6 g/dL (1.3-3.2); Glucose 89 mg/dl (74-100); HDL Cholesterol 82 mg/dl (40-60); Sodium 138 mmol/L (136-145); Total Protein,Serum 6.9 g/dl (6.3-8.2); Triglycerides 374 mg/dl (30-150); VLDL Cholesterol 75 mg/dL (0-40)
[2023-02-10 20:48] LABS: T4 (Thyroxine) 8.5 ug/dl (5.53-11.0)
[2023-02-17 12:14] LABS: 1,25 Dihydroxy Vitamin D 59 pg/mL (.); 1,25-Dihydroxy, Vitamin D-2 <10 pg/mL (.); 1,25-Dihydroxy, Vitamin D-3 58 pg/mL (.)
== END ==
PROVIDERS: PCP Emergency Medicine; Visit Provider Emergency Medicine
DX: Z00.00 Encounter for general adult medical examination without abnormal findings (principal); Z79.899 Other long term (current) drug therapy; Z68.28 Body mass index [BMI] 28.0-28.9, adult
CPT/HCPCS: 80053; 80061; 82652; 84436; 84443; 85025

== ENCOUNTER → 2023-02-11 13:24 | Outpatient (POV) | payer MEDICAID, SELFPAY ==
[2023-02-11 13:50] VITALS: BP 159/94; PULSE 68; RESP 18; O2SAT 97; BMI 27.1
--- NOTE | 2023-02-11 14:09 | EXP.PAIN.SOA ---
[facility] Pain Management SOAP Note Subjective:: Patient is a pleasant 47-year-old female who presents today for insurance denial. We are currently treating the patient for degenerative disc disease of lumbar spine with lumbar radiculopathy symptoms, lumbar facet arthropathy, lumbar spondylosis, left-sided sacroiliitis. Today she does state her pain is a 7 out of 10. Patient denies any new trauma or injury. She does state that she is experiencing more pain in her low back and bilateral hips. Patient does describe this is an aching, throbbing sensation with some burning. She states it does affect her ability perform activities of daily living such as cooking and cleaning. Patient does state prolonged positioning such as sitting or standing aggravates her pain symptoms. Patient did complete several weeks of physical therapy prior to having knee surgery with minimal improvement. Patient has also started back physical therapy however it is causing worsening pain symptoms into her hips. Patient prior to her physical therapy had been doing a home exercise regimen for longer than 6 weeks with minimal improvement. Patient has tried and failed conservative therapy such as oral medications, heat and ice, topicals. Patient is currently managed with tizanidine 4 mg at bedtime from our office and Percocet 10 mg 4 times a day and gabapentin 800 mg 4 times a day from Dr. Matt's office. She denies any side effects from these medications. Her Tyree has been reviewed and is appropriate. Review of Systems: General: No recent weight changes, no fever, no sleep disturbances Respiratory: No cough, no shortness of air, no recurring pulmonary infections Cardiovascular/peripheral vascular: No chest pain, no palpitations, no edema, no shortness of breath Gastrointestinal: No new onset incontinence, normal bowel movements reported Genitourinary: No new onset incontinence Musculoskeletal: Low back pain, bilateral hip pain Psychiatric: [Normal mood/affect] Neurological: [Denies weakness in extremities], [denies balance issues] Objective:: Physical Exam: General: Alert and oriented x3, no acute distress, pleasant and cooperative Lungs: Respirations even and unlabored, symmetrical chest expansion Eyes: PERRL Musculoskeletal: Flexion and extension of lumbar [spine] somewhat guarded secondary to pain, [antalgic gait noted] point tenderness along bilateral SIs with positive bilateral Harlan's, Thomas's, Gaenslen's, compression and distraction exam Neurological: Speech clear, no gross sensory deficit Assessment:: Degenerative disc disease of lumbar spine with lumbar radiculopathy symptoms, lumbar facet arthropathy, lumbar spondylosis, bilateral hip pain, sacroiliitis Plan:: Patient continues to experience significant pain in her low back and bilateral hips with limited range of motion. Patient did have point tenderness along both bilateral SIs and a positive bilateral Harlan's, Thomas's, Gaenslen's, compression and distraction exam. I have discussed with the patient that she would benefit from bilateral SI injections. Risk and benefits were discussed with the patient and she would like to proceed forward with this plan of care. Patient has tried and failed conservative therapy such as oral medications, heat and ice, topicals, physical therapy, at home stretching and exercise for longer than 6 weeks. We will resubmit for diagnostic bilateral SI injections and contact the patient once we have insurance approval for specific time and date. 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 I have discussed with the patient that I will send in a 14-day supply of methocarbamol 500 mg daily to try during the day. I have discussed with her to try this on a day she does not have to work to verify that it does not cause increased drowsiness. Patient has been instructed to contact the clinic with any concerns before the next appointment.
== END | disposition home or self-care (01) ==
PROVIDERS: PCP Emergency Medicine; Visit Provider Nurse Practitioner Family
DX: M51.16 Intervertebral disc disorders with radiculopathy, lumbar region (principal); M47.26 Other spondylosis with radiculopathy, lumbar region; M25.551 Pain in right hip; M25.552 Pain in left hip; M46.1 Sacroiliitis, not elsewhere classified
CPT/HCPCS: 99212; G0463

== ENCOUNTER 2023-02-12 17:30 | Outpatient (RCR) | payer MEDICAID, SELFPAY ==
--- NOTE | 2023-01-22 16:52 | HMH.PTOPEV ---
PT Outpatient Evaluation Rehab PT Outpatient Evaluation Start: 01/22/23 16:33 Freq: Status: Active Protocol: Document 01/22/23 16:37 SKYLAR (Rec: 01/22/23 16:52 SKYLAR [id number]) E-signed By Edi Mueller, PT Outpatient Therapy Subjective History Subjective History Patient is a 47 year old female presenting to outpatient PT with reports of R post-surgical knee pain S/P R knee partial meniscectomy, plica excision and chondroplasty. Sx date 12/02/22 . Patient reports hx of chronic R knee pain starting approx 5 years ago after a basketball injury. Comorbidities include hx of LS sx and HTN. New diagnosis of cancer in past 12 No months? Chief Complaint Pain,Stiff,Swelling Symptom Type Ache,Sharp Symptoms Relieved By Rest/Positioning,Ice, Prescription Meds Symptoms Aggravated By Standing,Physical Activity, Walking Prior Functional Limitations Standing,Walking Current Functional Limitations Housework,Standing,Squatting, Recreation Activity,Walking, Stairs,Balance Symptom Description Intermittent Level of pain today (0-10) 2 Pain scale - at its best (0-10) 0 Pain scale - at its worst (0-10) 6 Hip/Knee Eval Gait Observation General Gait Pattern Observation Antalgic Gait,Decrease Weight Bear (R) Assistive Device Assistive Devices None / NA Palpation Tenderness right Knee Palpation Finding Tenderness Knee Palpation Overall Comment MJL/medial compartment 3/4 MMT Hip Flexion Strength Grade 4 Good Hip Adduction Strength Grade 4- Good- Hip Extension Strength Grade 4- Good- Hip External Rotation Strength Grade 4- Good- Hip Internal Rotation Strength Grade 4- Good- Knee Extension Strength Grade 4- Good- Knee Flexion Strength Grade 4 Good ROM Hip ROM Reason Not Measured Within Functional Limits Knee Extension Active Range of Motion ( -4 degrees) Knee Flexion Active Range of Motion ( 116 degrees) Special Tests Knee Valgus Stress Test Negative Right Knee Varus Stress Test Negative Right Lower Extremity Functional Index Activities Today, do you or would you have any difficulty at all with: a.Any of your usual work, housework or A little bit of difficulty school activities b. Your usual hobbies, recreational or Quite a bit of difficulty sporting activities c. Getting into or out of the bath A little bit of difficulty d. Walking between rooms A little bit of difficulty e. Putting on your shoes or socks No difficulty f. Squatting Quite a bit of difficulty g. Lifting an object, like a bag of Moderate difficulty groceries from the floor h. Performing light activities around Moderate difficulty your home i. Performing heavy activities around Moderate difficulty your home j. Getting into or out of a car Moderate difficulty k. Walking 2 blocks Quite a bit of difficulty l. Walking a mile Extreme difficulty or unable to perform activity m. Going up or down 10 stairs (about 1 Quite a bit of difficulty flight of stairs) n. Standing for 1 hour Quite a bit of difficulty o. Sitting for 1 hour A little bit of difficulty p. Running on even ground Quite a bit of difficulty q. Running on uneven ground Quite a bit of difficulty r. Making sharp turns while running fast Quite a bit of difficulty s. Hopping Quite a bit of difficulty t. Rolling over in bed No difficulty LEFI Score Lower Extremity Functional Index Score 37 Outpatient Therapy Assessment Impairments Problems/Impairmments Palpation Tenderness,Impaired Range of Motion,Impaired Strength,Impaired Walking, Impaired Standing,Impaired Household Care,Impaired Stair Climbing,Impaired Incline Stepping,Impaired Stepping on Uneven Surface,Impaired Squatting,Impaired Bending, Impaired Recreational Activities,Impaired Running, Impaired Jumping,Impaired Work Activities,Subjective C/O Pain Prognosis Rehab Potential Good Clinical Impression Consistent with Diagnosis Yes Short Term Goals Number of Weeks 2 Decrease Subjective C/O Pain Yes: 07/06 at worst Patient to be Ind w/ HEP Yes Halfway Goals Number of Weeks 4-6 Decreased Palpation Tenderness Yes: 1/ Increase Range of Motion Yes: 0-130 Increase Strength Yes: 5/5 Increase Ability to Walk Yes: 1 hr without difficulty Increase Ability to Stand Yes: Improve Ability to Climb Stairs Yes: 1 flight up/down without difficulty Decrease Subjective C/O Pain Yes: 10 at worst Outpatient Therapy Plan of Care Treatment Plan May Include Therapeutic Exercise Including Home Yes Exercise Program Manual Therapy Techniques Yes Neuromuscular Re-education Yes Therapeutic Activities to Return to Yes Previous Functional/Work Level Gait Training Yes ADL/Self Care Education Yes Dry Needling Yes Thermal Modalities Yes Electrical Stimulation Yes Ultrasound/Phonophoresis Yes Iontophoresis Yes Orthotics/Bracing/Splinting Yes Massage Yes Eval/Re-Eval Yes Frequency Times per week 2 Duration Number of Weeks 4-6 Addendums This patient is a candidate for social No or vocational rehab? Patient/Guardian verbally acknowledges Yes understanding of treatment program and consents to further treatment? Patient/Guardian verbally acknowledges Yes understanding of diagnosis, prognosis and goals for treatment? Eval Complexity PT Charges 10036 - Moderate Complexity Shoulder/Elbow Eval Shoulder Objective Measurements Elbow Objective Measurements PHYSICIAN CERTIFICATION: I certify the specified therapy services for Delaney Orellana are required, authorized, and reviewed every 30 days.
== END 2023-02-12 18:30 | disposition home or self-care (01) ==
LOC: PT 17:30
PROVIDERS: PCP Emergency Medicine; Visit Provider Orthopaedic Surgery
DX: M25.561 Pain in right knee (principal); S83.231A Complex tear of medial meniscus, current injury, right knee, initial encounter; Z98.890 Other specified postprocedural states
CPT/HCPCS: 97010; 97014; 97110; 97163; 97530; G0283

== ENCOUNTER 2023-03-09 11:48 | Day surgery (SDC) | payer MEDICAID, SELFPAY ==
[2023-03-09 11:50] VITALS: BP 136/80; PULSE 67; RESP 16; TEMP 36.5; O2SAT 94; BMI 27.1
[2023-03-09 11:53] VITALS: BP 123/47; PULSE 68; O2SAT 96
[2023-03-09 12:00] VITALS: BP 123/47; PULSE 62; O2SAT 97
[2023-03-09 12:01] VITALS: BP 160/84; PULSE 56; RESP 16; O2SAT 94
--- NOTE | 2023-03-09 12:03 | P.PCN_ITS ---
Procedure Date: 03/09/23 Time: 11:30 Anesthesiologist:: Parker Anand CRNA Complications:: None Pre-procedure Diagnosis:: Bilateral sacroiliitis Post-procedure Diagnosis:: Same. Indications for Procedure:: Patient arrives our clinic today for bilateral sacroiliac joint injection. She has responded well to sacroiliac joint injection of cortisone in the past. She has extreme point tenderness upon examination over the bilateral sacroiliac joints. Patient has difficulty transitioning from sitting to standing. She rates her pain 7/10. Procedure Details:: Procedure: Bilateral sacroiliac joint injections under fluoroscopy Informed consent was obtained and the risks and benefits of the procedure were explained to the patient.~ The patient was taken to the procedure room and noninvasive monitors were placed including a noninvasive blood pressure cuff and pulse oximeter.~ The patient was placed prone on the procedure table. Both hips were cleansed using Betadine as a cleansing solution. C-arm fluoroscopy was used to view the right sacroiliac joint.~ The skin and subcutaneous tissues were anesthetized using lidocaine 1.5% and a 25-gauge needle.~ After this, a 22-gauge spinal needle was inserted under fluoroscopic guidance into the inferior aspect of the right sacroiliac joint.~ Omnipaque dye was injected and good spread was seen throughout the joint.~ After this, approximately 5 mL of bupivacaine, 0.25% and Depo-Medrol, 40 mg was incrementally injected into the right sacroiliac joint. We then moved to the left sacroiliac joint.~ The skin and subcutaneous tissues were anesthetized using lidocaine 1.5% and a 25-gauge needle.~ After this, a 22- gauge spinal needle was inserted under fluoroscopic guidance into the inferior aspect of the left sacroiliac joint.~ Omnipaque dye was injected and good spread was seen throughout the joint. After this, approximately 5 mL of bupivacaine, 0.25% and Depo-Medrol, 40 mg was incrementally injected into the left sacroiliac joint.~ The patient tolerated the procedure well with no complications. The patient was observed in the Pain Clinic and then was discharged home neurologically intact. Plan and Disposition:: Patient was discharged without incident.
== END 2023-03-09 12:01 | disposition home or self-care (01) ==
PROVIDERS: PCP Internal Medicine; Visit Provider Nurse Anesthetist, Certified Registered
DX: M46.1 Sacroiliitis, not elsewhere classified (principal)
CPT/HCPCS: 27096; G0260; J1040

== ENCOUNTER → 2023-04-01 13:37 | Outpatient (POV) | payer MEDICAID, SELFPAY ==
--- NOTE | 2023-04-01 14:29 | EXP.PAIN.SOA ---
[facility] Pain Management SOAP Note Subjective:: Patient is a pleasant 47-year-old female who presents today for follow-up of bilateral SI injections on 03/09/2023. We are currently treating the patient for degenerative disc disease of lumbar spine with lumbar radiculopathy symptoms, lumbar facet arthropathy, lumbar spondylosis, sacroiliitis. Today she rates her pain a 5 out of 10. Patient denies any new trauma or injury. She does state that she has had at least 50% improvement following this injection and feels like it is still providing improvement. Patient states she has been able to increase her activity with decreased pain symptoms and feels overall more functional. Patient is currently managed with tizanidine 4 mg at at bedtime from our office at and Percocet 10 mg 4 times a day and gabapentin 800 mg 4 times a day from her PCP. Patient denies any side effects from this medication. Her Tyree has been reviewed and is appropriate. Review of Systems: General: No recent weight changes, no fever, no sleep disturbances Respiratory: No cough, no shortness of air, no recurring pulmonary infections Cardiovascular/peripheral vascular: No chest pain, no palpitations, no edema, no shortness of breath Gastrointestinal: No new onset incontinence, normal bowel movements reported Genitourinary: No new onset incontinence Musculoskeletal: Low back pain Psychiatric: [Normal mood/affect] Neurological: [Denies weakness in extremities], [denies balance issues] Objective:: Physical Exam: General: Alert and oriented x3, no acute distress, pleasant and cooperative Lungs: Respirations even and unlabored, symmetrical chest expansion Eyes: PERRL Musculoskeletal: Flexion and extension of lumbar [spine] somewhat guarded secondary to pain, [antalgic gait noted] Neurological: Speech clear, no gross sensory deficit Assessment:: Degenerative disc disease of lumbar spine with lumbar radiculopathy symptoms, lumbar facet arthropathy, lumbar spondylosis, sacroiliitis Plan:: Patient has had improvement following her bilateral SI injections. I will refill the patient's tizanidine 4 mg at at bedtime and provide a 1 month supply of this medication. I will also order the patient compounded cream. Patient will return to clinic in 1 month for reevaluation of symptoms and plan of care. Patient has been instructed to contact the clinic with any concerns before the next appointment. Dr. Lee has reviewed this note and agrees with this plan of care. This note was dictated using voice recognition software and make contain errors or omissions. [facility] Disclaimer: The information contained in this section may have been updated after the patient was seen, as this information can be updated by other users. 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
[2023-04-01 14:34] VITALS: BP 138/69; PULSE 67; RESP 18; O2SAT 97; BMI 27.1
== END | disposition home or self-care (01) ==
PROVIDERS: PCP Internal Medicine; Visit Provider Nurse Practitioner Family
DX: M51.16 Intervertebral disc disorders with radiculopathy, lumbar region (principal); M47.26 Other spondylosis with radiculopathy, lumbar region; M46.1 Sacroiliitis, not elsewhere classified
CPT/HCPCS: 99212; G0463

== ENCOUNTER 2023-04-09 19:05 | Outpatient (CLI) | payer MEDICAID, SELFPAY ==
[2023-04-09 18:02] LABS: Adenovirus,PCR Not Detected (NotDetected); Coronavirus 19, PCR Not Detected (NotDetected); Coronavirus 229E Not Detected (NotDetected); Coronavirus NL63 Not Detected (NotDetected); Coronavirus OC43 Not Detected (NotDetected); Coronovirus HKU1,PCR Not Detected (NotDetected); Human Metapneumovirus Not Detected (NotDetected); Influenza A, PCR Not Detected (NotDetected); Influenza AH1, 2009 Not Detected (NotDetected); Influenza AH1, PCR Not Detected (NotDetected); Influenza AH3,PCR Not Detected (NotDetected); Influenza B, PCR Not Detected (NotDetected); Parainfluenza 1, PCR Not Detected (NotDetected); Parainfluenza 2, PCR Not Detected (NotDetected); Parainfluenza 3, PCR Not Detected (NotDetected); Parainfluenza 4, PCR Not Detected (NotDetected); Respiratory Syncytial Virus Not Detected (NotDetected); Rhinovirus/Enterovirus Not Detected (NotDetected)
[2023-04-09 19:31] LABS: Barbiturates Screen,Urine Negative ng/ml (<200); Benzodiazepines Screen,Urine Negative ng/ml (<200)
[2023-04-09 19:32] LABS: Amphetamine/Metha Screen,Urine Negative ng/ml (<1000)
[2023-04-09 19:33] LABS: Cannabinoid Screen,Urine Negative ng/ml (<50); Methadone Screen,Urine Negative ng/ml (<300)
[2023-04-09 19:34] LABS: Cocaine Screen,Urine Negative ng/ml (<300)
[2023-04-09 19:35] LABS: Opiate Screen,Urine Positive ng/ml (<300)
[2023-04-09 19:36] LABS: Phencyclidine Screen,Urine Negative ng/ml (<25)
== END 2023-04-09 23:59 ==
LOC: LAB.DROPOF 19:05
PROVIDERS: PCP Internal Medicine; Visit Provider Internal Medicine
DX: Z79.899 Other long term (current) drug therapy (principal); J34.89 Other specified disorders of nose and nasal sinuses; R42 Dizziness and giddiness; H92.03 Otalgia, bilateral; Z20.828 Contact with and (suspected) exposure to other viral communicable diseases
CPT/HCPCS: 80307; 87632; 87635

== ENCOUNTER → 2023-04-30 13:21 | Outpatient (POV) | payer MEDICAID, SELFPAY ==
[2023-04-30 13:34] VITALS: BP 159/85; PULSE 87; RESP 18; O2SAT 99; BMI 27.1
--- NOTE | 2023-04-30 13:40 | EXP.PAIN.SOA ---
[facility] Pain Management SOAP Note Subjective:: Patient is a pleasant 47-year-old female comes our clinic today for follow-up visit regarding chronic low back pain she describes as constant, dull, aching. Also bilateral sacroiliac joint and inflammation. Patient had bilateral sacroiliac joint injections on 03/09/2023. She reports 4 to 6 weeks of significant improvement terms of her overall low lumbar back pain off the midline bilaterally as well as bilateral posterior hip pain. She rates her pain today 4/5. I will refill the patient's tizanidine 4 mg 1 p.o. nightly. I will give her 1 refill. Patient continues taking Percocet 10 mg 4 times daily from her PCP as well as gabapentin and 100 mg 1 p.o. 4 times daily. Patient's Tyree has been reviewed and appropriate Objective:: Patient is awake alert [place] x 3. No acute distress. Flexion-extension lumbar spine normal. Deep tendon reflexes upper and lower extremities normal. Motor strength upper and lower extremities normal. There is no gross sensory deficit. Gait is normal. Assessment:: Degenerative disc lumbar spine multilevels. Lumbar radiculopathy. Bilateral sacroiliitis. Plan:: I will refill the patient's tizanidine 4 mg 1 p.o. nightly. I will give her 1 refill. She will return to see us in 1 month. [facility] Disclaimer: The information contained in this section may have been updated after the patient was seen, as this information can be updated by other users. 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
== END | disposition home or self-care (01) ==
PROVIDERS: PCP Internal Medicine; Visit Provider Nurse Anesthetist, Certified Registered
DX: M51.16 Intervertebral disc disorders with radiculopathy, lumbar region (principal); M46.1 Sacroiliitis, not elsewhere classified
CPT/HCPCS: 99212; G0463

== ENCOUNTER 2023-06-03 10:41 | Outpatient (POV) | payer MEDICAID, SELFPAY ==
--- NOTE | 2023-06-03 10:54 | A.OFFVIS_ITS ---
[facility] Pain Management SOAP Note Subjective:: Patient is a pleasant 47-year-old female who presents today for follow-up and medication refill. Today she rates her pain a 6 out of 10. Patient states she did have a tumble on 2 of her steps just the other day. 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 Patient denies thinking that she has done anything major like fractured something. Patient does state that the compounded cream we ordered her is significantly helping her overall pain. Patient is also prescribed tizanidine from our office. She is requesting refills of this. Patient is prescribed Percocet from her primary care provider and gabapentin. Her Tyree has been reviewed and is appropriate. Review of Systems: General: No recent weight changes, no fever, no sleep disturbances Respiratory: No cough, no shortness of air, no recurring pulmonary infections Cardiovascular/peripheral vascular: No chest pain, no palpitations, no edema, no shortness of breath Gastrointestinal: No new onset incontinence, normal bowel movements reported Genitourinary: No new onset incontinence Musculoskeletal: Low back pain Psychiatric: [Normal mood/affect] Neurological: [Denies weakness in extremities], [denies balance issues] Objective:: Physical Exam: General: Alert and oriented x3, no acute distress, pleasant and cooperative Lungs: Respirations even and unlabored, symmetrical chest expansion Eyes: PERRL Musculoskeletal: Flexion and extension of lumbar [spine] somewhat guarded secondary to pain, [antalgic gait noted] Neurological: Speech clear, no gross sensory deficit Assessment:: Degenerative disc disease of lumbar spine with lumbar radiculopathy symptoms, bilateral sacroiliitis Plan:: Patient continues to do well with her current medication regimen. I will refill the patient's tizanidine 4 mg 4times daily as needed and provide a 3-month supply of this medication. I will also send in a 5-day dose of prednisone 20 mg twice daily. Patient will return to clinic in 6 weeks for reevaluation of symptoms and plan of care. Patient has been instructed to contact the clinic with any concerns before the next appointment. Dr. Lee has reviewed this note and agrees with this plan of care. This note was dictated using voice recognition software and make contain errors or omissions. [facility] Disclaimer: The information contained in this section may have been updated after the patient was seen, as this information can be updated by other users. Medical History Hypertension prison use of drug Surgical History History of lumbar surgery History of right knee surgery Family History Other Lung cancer Social History Smoking Status: Current every day smoker tobacco type: e-cigarettes alcohol intake: current substance use type: former substance user and methamphetamine current occupational status: unemployed Travel in the last 8 weeks: None household members: other housing: house current occupational exposures/hazards: No caffeine: Yes
== END 2023-06-03 23:59 | disposition home or self-care (01) ==
PROVIDERS: PCP Internal Medicine; Visit Provider Nurse Practitioner Family
DX: M51.16 Intervertebral disc disorders with radiculopathy, lumbar region (principal); M46.1 Sacroiliitis, not elsewhere classified
CPT/HCPCS: 99212; G0463

== ENCOUNTER 2023-07-15 13:19 | Outpatient (POV) | payer MEDICAID, SELFPAY ==
[2023-07-15 13:32] VITALS: BP 116/69; PULSE 78; RESP 18; O2SAT 97; BMI 27.1
--- NOTE | 2023-07-15 15:18 | A.OFFVIS_ITS ---
[facility] Pain Management SOAP Note Subjective:: .Patient is a pleasant 48-year-old female who presents today for follow-up. Today she rates her pain a 6 out of 10. Patient states that she did fall again about a week ago. She states that it was dark and she stumbled which caused her to land on her lower back and hip area. Patient does not believe that she did anything significant however she has been very sore the last 2 to 3 days. Patient does also states she still is experiencing more chronic pain in her bilateral SIs that we do not typically do injections for. Patient describes this as an aching, throbbing sensation and denies any symptoms going into her lower extremities. She does state the pain interferes with her ability perform activities of daily living such as cooking and cleaning. Patient does typically get anywhere from 50 to 80% relief with her SI injections and that they do not last on average a few months. Patient is interested in repeating this injection. Patient is prescribed tizanidine 4 mg 4 times a day as needed. She denies any side effects from this medication. Patient was just given a 3-month supply of this medication and does not need any refills. Patient is prescribed Percocet and gabapentin from her primary care provider. Her Tyree has been reviewed and is appropriate. Review of Systems: General: No recent weight changes, no fever, no sleep disturbances Respiratory: No cough, no shortness of air, no recurring pulmonary infections Cardiovascular/peripheral vascular: No chest pain, no palpitations, no edema, no shortness of breath Gastrointestinal: No new onset incontinence, normal bowel movements reported Genitourinary: No new onset incontinence Musculoskeletal: Low back pain, bilateral hip pain Psychiatric: [Normal mood/affect] Neurological: [Denies weakness in extremities], [denies balance issues] Objective:: Physical Exam: General: Alert and oriented x3, no acute distress, pleasant and cooperative Lungs: Respirations even and unlabored, symmetrical chest expansion Eyes: PERRL Musculoskeletal: Flexion and extension of lumbar [spine] somewhat guarded secondary to pain, [antalgic gait noted] point tenderness along bilateral SIs with positive bilateral Harlan's, Thomas's, Gaenslen's, compression and distraction exam Neurological: Speech clear, no gross sensory deficit Assessment:: Degenerative disc disease of lumbar spine with lumbar radiculopathy symptoms, bilateral sacroiliitis Plan:: I discussed with the patient due to her worsening pain in her low back to her fall and her history of chronic sacroiliitis that she may benefit from a repeat bilateral SI injections. Risk and benefits were explained to the patient and she would like to proceed forward with this plan of care. Patient did have point tenderness more severe along the left side SI as well as point tenderness on the right SI with positive bilateral Harlan's, Thomas's, Gaenslen's, compression and distraction exam. Due to her recent fall I will send in a 5-day dose of prednisone 20 mg twice daily. Patient will be scheduled for bilateral SI injections under fluoroscopy. Patient has gotten upwards of 80% relief lasting multiple months in the past with her last SI injections back in February 2023. Patient has been instructed to contact the clinic with any concerns before the next appointment. Dr. Lee has reviewed this note and agrees with this plan of care. This note was dictated using voice recognition software and make contain errors or omissions. [facility] Disclaimer: The information contained in this section may have been updated after the patient was seen, as this information can be updated by other users. 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
== END 2023-07-15 23:59 | disposition home or self-care (01) ==
PROVIDERS: PCP Internal Medicine; Visit Provider Nurse Practitioner Family
DX: M51.16 Intervertebral disc disorders with radiculopathy, lumbar region (principal); M46.1 Sacroiliitis, not elsewhere classified
CPT/HCPCS: 99212; G0463

== ENCOUNTER 2023-08-03 11:30 | Day surgery (SDC) | payer MEDICAID, SELFPAY ==
[2023-08-03 11:49] VITALS: BP 140/85; PULSE 75; RESP 18; O2SAT 98; BMI 27.1
[2023-08-03] MEDS: methylPREDNISolone ACETATE 80MG/ML VIAL 80 MG (11:50)
[2023-08-03] MEDS: LIDOCAINE 1% 5ML PF VIAL 5 ML (11:51)
[2023-08-03] MEDS: BUPIVACAINE 0.25% 10ML INJ 25 MG IJ (11:51)
[2023-08-03 11:53] VITALS: BP 171/86; PULSE 71; RESP 71; O2SAT 98
[2023-08-03 11:55] VITALS: BP 162/61; PULSE 75; RESP 18; O2SAT 99
--- NOTE | 2023-08-03 12:10 | P.PCN_ITS ---
Procedure Date: 08/03/23 Time: 11:50 Anesthesiologist:: Parker Anand CRNA Complications:: None Pre-procedure Diagnosis:: Bilateral sacroiliitis Post-procedure Diagnosis:: Same Indications for Procedure:: Patient is a pleasant 48-year-old female comes our clinic today for bilateral sacroiliac joint injection of cortisone. Patient describes low lumbar back pain off midline bilaterally as well as bilateral posterior hip pain. Upon examination she has extreme point tenderness over the bilateral sacroiliac joints. She reports difficulty transitioning from sitting to standing. Difficulty with standing and or sitting for any length of time. She rates her pain 8/10. Procedure Details:: Procedure: Bilateral sacroiliac joint injections under fluoroscopy Informed consent was obtained and the risks and benefits of the procedure were explained to the patient.~ The patient was taken to the procedure room and noninvasive monitors were placed including a noninvasive blood pressure cuff and pulse oximeter.~ The patient was placed prone on the procedure table. Both hips were cleansed using Betadine as a cleansing solution. C-arm fluoroscopy was used to view the right sacroiliac joint.~ The skin and subcutaneous tissues were anesthetized using lidocaine 1.5% and a 25-gauge needle.~ After this, a 22-gauge spinal needle was inserted under fluoroscopic guidance into the inferior aspect of the right sacroiliac joint.~ Omnipaque dye was injected and good spread was seen throughout the joint.~ After this, approximately 5 mL of bupivacaine, 0.25% and Depo-Medrol, 40 mg was incrementally injected into the right sacroiliac joint. We then moved to the left sacroiliac joint.~ The skin and subcutaneous tissues were anesthetized using lidocaine 1.5% and a 25-gauge needle.~ After this, a 22- gauge spinal needle was inserted under fluoroscopic guidance into the inferior aspect of the left sacroiliac joint.~ Omnipaque dye was injected and good spread was seen throughout the joint. After this, approximately 5 mL of bupivacaine, 0.25% and Depo-Medrol, 40 mg was incrementally injected into the left sacroiliac joint.~ The patient tolerated the procedure well with no complications. The patient was observed in the Pain Clinic and then was discharged home neurologically intact. Plan and Disposition:: Patient was discharged without incident.
== END 2023-08-03 11:53 | disposition home or self-care (01) ==
LOC: SC.PAINP 11:32
PROVIDERS: PCP Internal Medicine; Visit Provider Nurse Anesthetist, Certified Registered
DX: M46.1 Sacroiliitis, not elsewhere classified (principal)
CPT/HCPCS: 27096; G0260; J1010

== ENCOUNTER 2023-08-06 16:00 | Outpatient (RCR) | payer MEDICAID, SELFPAY ==
--- NOTE | 2023-06-23 12:05 | HMH.PTOPEV ---
PT Outpatient Evaluation Rehab PT Outpatient Evaluation Start: 06/23/23 10:06 Freq: Status: Active Protocol: Document 06/23/23 10:06 SKYLAR (Rec: 06/23/23 12:05 ADRIANNAARIEL [id number]) E-signed By Edi Mueller, PT Outpatient Therapy Subjective History Subjective History Patient is a 48 year old female presenting to outpatient PT with reports of cervical spine pain. No reports of radicular symptoms. Symptoms consistent with CS DDD and poor postural awareness. Most recent imaging negative (2019). Comorbidities include hx of R knee arthroscopy, HTN and lumbar spine pain. Chief Complaint Pain,Stiff Symptom Type Sharp Symptoms Relieved By Rest/Positioning,Prescription Meds Symptoms Aggravated By Standing,Physical Activity, Walking,Lifting Prior Functional Limitations None Current Functional Limitations Lifting,Housework,Standing Symptom Description Constant but Variable Level of pain today (0-10) 5 Pain scale - at its best (0-10) 4 Pain scale - at its worst (0-10) 7 Cervical Eval Palpation Cervical Muscles R Cervical Paraspinal,L Cervical Paraspinal,R Upper Trapezius,L Upper Trapezius Posture Head/C-Spine Posture Sitting Position C-Spine Flattened Head/C-Spine Posture Standing Position C-Spine Flattened Flexibility Deficits Upper Trapezius Muscle Length (R) Moderate Tightness,(L) Moderate Tightness Pectoralis Minor Muscle Length (R) Moderate Tightness,(L) Moderate Tightness Passive Joint Mobility Cervical PIVM WNL: R OA L OA R AA L AA R C2/3 L C2/3 R C3/4 L C3/4 R C4/5 L C4/5 R C5/6 L C5/6 R C6/7 L C6/7 R C7/T1 L C7/T1 AROM Cervical Spine Extension Active Range of 24 Motion (degrees) Cervical Spine Flexion Active Range of 32 Motion (degrees) Cervical Spine Right Lateral Flexion 12 Active Range of Motion (degrees) Cervical Spine Left Lateral Flexion 14 Active Range of Motion (degrees) Cervical Spine Right Rotation Active 32 Range of Motion (degrees) Cervical Spine Left Rotation Active 18 Range of Motion (degrees) MMT Bilateral Deltoid (C5) 5 Normal Biceps Brachii Strength Grade 5 Normal Wrist Extension Strength Grade 5 Normal Triceps Brachii Strength Grade 5 Normal Wrist Flexion Strength Grade 5 Normal Extensor Pollicis Longus Strength Grade 5 Normal Finger Abduction Strength Grade 5 Normal Altered Sensation Left Upper extremity Dermatomes C7 Comment intermittent NT per report Special Test C-Spine Foraminal Compression (Spurling) Negative Left,Negative Right Test C-Spine Foraminal Distraction Test Positive Neck Disability Index Neck Disability Index Section 1: Pain Intensity The pain is moderate at the moment Section 2: Personal Care (washing, It is painful to look after dressing, etc.) myself and I am slow and careful Section 3: Lifting Pain prevents me lifting heavy weights off the floor, but I can manage Section 4: Reading I can read as much as I want to with slight pain in my neck Section 5: Headaches I have slight headaches, which come infrequently Section 6: Concentration I can concentrate fully when I want to with slight difficulty Section 7: Work I can do most of my usual work , but no more Section 8: Driving I can't drive my car at all Section 9: Sleeping My sleep is moderately disturbed (2-3 hrs. sleepless) Section 10: Recreation I am able to engage in most, but not all of my usual recreation NDI Score 21 Outpatient Therapy Assessment Impairments Problems/Impairmments Palpation Tenderness,Impaired Range of Motion,Impaired Driving,Impaired Lifting, Impaired Household Care, Subjective C/O Pain Prognosis Rehab Potential Good Clinical Impression Consistent with Diagnosis Yes Short Term Goals Number of Weeks 2 Decrease Subjective C/O Pain Yes: 5/10 at worst Patient to be Ind w/ HEP Yes Fdc Goals Number of Weeks 4-6 Decreased Palpation Tenderness Yes: 1/4 Increase Range of Motion Yes: WNL Restore Ability to Lift Objects to Yes: 20 lb without difficulty Shoulder Level Restore Ability to Lift Objects Overhead Yes: Improve Oswestry Score <25 Improve Neck Disability Index Score Yes Decrease Subjective C/O Pain Yes: 2/10 at worst Outpatient Therapy Plan of Care Treatment Plan May Include Therapeutic Exercise Including Home Yes Exercise Program Manual Therapy Techniques Yes Neuromuscular Re-education Yes Therapeutic Activities to Return to Yes Previous Functional/Work Level Mechanical Traction Yes Dry Needling Yes Thermal Modalities Yes Electrical Stimulation Yes Ultrasound/Phonophoresis Yes Iontophoresis Yes Massage Yes Eval/Re-Eval Yes Frequency Times per week 2 Duration Number of Weeks 2 Addendums This patient is a candidate for social No or vocational rehab? Patient/Guardian verbally acknowledges Yes understanding of treatment program and consents to further treatment? Patient/Guardian verbally acknowledges Yes understanding of diagnosis, prognosis and goals for treatment? Eval Complexity PT Charges 12517 - Moderate Complexity Shoulder/Elbow Eval Shoulder Objective Measurements Elbow Objective Measurements PHYSICIAN CERTIFICATION: I certify the specified therapy services for Delaney Orellana are required, authorized, and reviewed every 30 days.
--- NOTE | 2023-07-28 16:27 | HMH.RHREAS ---
Rehab Reassessment Rehab OP Re-assessment Start: 06/23/23 10:06 Freq: Status: Active Protocol: Document 07/28/23 16:19 CARLENE (Rec: 07/28/23 16:27 PHORRICHARD [id number]) E-signed By Varun Mendez, PT Neck Disability Index Neck Disability Index Section 1: Pain Intensity The pain is moderate at the moment Section 2: Personal Care (washing, I can look after myself dressing, etc.) normally but it causes extra pain Section 3: Lifting Pain prevents me lifting heavy weights off the floor, but I can manage Section 4: Reading I can't read as much as I want because of moderate pain in my neck Section 5: Headaches I have moderate headaches, which come infrequently Section 6: Concentration I have a lot of difficulty in concentrating when I want to Section 7: Work I can only do my usual work, but no more Section 8: Driving I can't drive my car at all Section 9: Sleeping My sleep is moderately disturbed (2-3 hrs. sleepless) Section 10: Recreation I am able to engage in most, but not all of my usual recreation NDI Score 24 Rehab Re-assessment Subjective Subjective Patient reports that she has improved 60% since beginning PT. She reports that turning her head has gotten a little bit easier, but nothing at home has gotten easier. Her current pain is a 7/10, which she reports is everywhere, not just her neck. She reports at the worst her pain gets to a 9/10. She reports PT is helping me though. Objective Objective Notes CROM: Painful in all directions Flexion: 32 Extension: 14 RLF: 10 LLF: 22 TTP: 2/4 to C3-C6 B Assessment Progress Assessment Progressing as Expected Assessment Notes Patient has demonstrated some progress in her subjective reports, in her pain levels and motion. Patient would continue to benefit from skilled PT, presently. Patient goals met ST/2 LT/[address]/2 LT/8 Plan Plan Continue as initial POC Frequency of Therapy 2/week Duration of therapy 4 wks Time and Billing Re-Eval Time 11 Re-Eval Billing Units 0 PHYSICIAN CERTIFICATION: I certify the specified therapy services for Delaney Orellana are required, authorized, and reviewed every 30 days.
== END 2023-08-06 17:00 | disposition home or self-care (01) ==
LOC: PT 16:00
PROVIDERS: Visit Provider Internal Medicine
DX: M54.2 Cervicalgia (principal)
CPT/HCPCS: 97010; 97110; 97140; 97163; 97164

== ENCOUNTER 2023-08-19 13:50 | Outpatient (POV) | payer MEDICAID, SELFPAY ==
[2023-08-19 14:01] VITALS: BP 111/73; PULSE 80; RESP 16; O2SAT 96; BMI 27.1
--- NOTE | 2023-08-19 14:39 | EXP.PAIN.SOA ---
[facility] Pain Management SOAP Note Subjective:: Patient is a pleasant 48-year-old female who presents today for follow-up of bilateral SI injections on 08/03/2023. Today she states that she did have improvements that was significant of 80% however it only lasted 2 days. Patient does rate her pain today is 6 out of 10 and states that her pain is more in her mid to low back and is worse with increased activity. She does describe this as an aching, throbbing sensation with some numbness and tingling that radiates down her extremities. Patient does state the pain is interfering with her ability to perform activities of daily living such as cooking and cleaning. Patient states she is interested in any help we may be able to provide. Patient is prescribed tizanidine 4 mg 4 times a day and was recently given a 3-month supply of this medication and does not require any additional refills. She is prescribed Percocet and gabapentin from an outside provider. Her Tyree has been reviewed and is appropriate. Review of Systems: General: No recent weight changes, no fever, no sleep disturbances Respiratory: No cough, no shortness of air, no recurring pulmonary infections Cardiovascular/peripheral vascular: No chest pain, no palpitations, no edema, no shortness of breath Gastrointestinal: No new onset incontinence, normal bowel movements reported Genitourinary: No new onset incontinence Musculoskeletal: Low back pain, leg pain Psychiatric: [Normal mood/affect] Neurological: [Denies weakness in extremities], [denies balance issues] Objective:: physical Exam: General: Alert and oriented x3, no acute distress, pleasant and cooperative Lungs: Respirations even and unlabored, symmetrical chest expansion Eyes: PERRL Musculoskeletal: Flexion and extension of lumbar [spine] somewhat guarded secondary to pain, [antalgic gait noted] point tenderness noted in the approximate area of L2-L3 range Neurological: Speech clear, no gross sensory deficit Assessment:: Degenerative disc disease of lumbar spine with lumbar radiculopathy symptoms, bilateral sacroiliitis, chronic pain syndrome Plan:: Patient is experiencing worsening pain in her low back and legs with limited range of motion. Patient did have point tenderness along her upper lumbar spine during today's exam. I have discussed with patient that she may benefit from lumbar epidural steroid injection. Risk and benefits were discussed with patient and she would like to proceed forward with this plan of care. Patient has tried and failed conservative therapies including continued at home exercising and stretching between injections. We will schedule the patient for an LESI L2-L3 under fluoroscopy. Patient has been instructed to contact the clinic with any concerns before the next appointment. Dr. Lee has reviewed this note and agrees with this plan of care. This note was dictated using voice recognition software and make contain errors or omissions. [facility] Disclaimer: The information contained in this section may have been updated after the patient was seen, as this information can be updated by other users. 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
== END 2023-08-19 23:59 | disposition home or self-care (01) ==
PROVIDERS: PCP Internal Medicine; Visit Provider Nurse Practitioner Family
DX: M51.16 Intervertebral disc disorders with radiculopathy, lumbar region (principal); M46.1 Sacroiliitis, not elsewhere classified; G89.4 Chronic pain syndrome
CPT/HCPCS: 99212; G0463

== ENCOUNTER 2023-09-14 13:09 | Day surgery (SDC) | payer MEDICAID, SELFPAY ==
[2023-09-14 13:29] VITALS: BP 117/58; PULSE 83; RESP 18; TEMP 36.8; O2SAT 97; BMI 27.1
--- NOTE | 2023-09-14 13:37 | EXP.PAIN.PRO ---
Procedure Date: 09/14/23 Time: 13:35 Anesthesiologist:: Parker Anand CRNA Complications:: None Pre-procedure Diagnosis:: Degenerative disc lumbar spine multilevels. Lumbar radiculopathy. Post-procedure Diagnosis:: Same. Indications for Procedure:: Patient is a very pleasant 48-year-old female comes our clinic today for lumbar epidural steroid injection at the L2-3 level. Patient is recent status post bilateral sacroiliac joint injections on 08/03/2023. She reports 80% improvement in terms of her posterior hip pain bilaterally. Today she reports low lumbar back pain as well as bilateral hip and leg radicular symptoms at times. She rates her pain 6/10. Procedure Details:: Procedure: Lumbar epidural steroid injection under fluoroscopy Informed consent was obtained and the risks and benefits of the procedure were explained to the patient. The patient was taken to the procedure room and noninvasive monitors placed, including noninvasive blood pressure cuff and pulse oximeter. The back was viewed using C-arm Fluoroscopy and prepped using Chloraprep as a cleansing solution and the L2-3 interspace was palpated. Skin and subcutaneous tissues were anesthetized using lidocaine 1.5% and a 25-gauge needle. After this, an 18-gauge Touhy epidural needle was placed into the L2-3 interspace and advanced using fluoroscopic guidance and loss of resistance to air until the epidural space was encountered. After confirmation of needle placement in the epidural space, with dye, a solution containing normal saline, 3 mL and Depo-Medrol 80 mg were incrementally injected into the lumbar epidural space. The patient tolerated the procedure well with no complications. The patient was observed in the Pain Clinic and then discharged home neurologically intact. Plan and Disposition:: Patient was discharged without incident.
[2023-09-14 13:41] VITALS: BP 105/77; PULSE 75; RESP 18; O2SAT 96
[2023-09-14] MEDS: methylPREDNISolone ACETATE 80MG/ML VIAL 80 MG (13:41)
[2023-09-14 13:45] VITALS: BP 105/77; PULSE 75; RESP 18; O2SAT 96
[2023-09-14 13:53] VITALS: BP 116/66; PULSE 72; RESP 16; O2SAT 98
== END 2023-09-14 13:57 | disposition home or self-care (01) ==
PROVIDERS: PCP Internal Medicine; Visit Provider Nurse Anesthetist, Certified Registered
DX: M51.16 Intervertebral disc disorders with radiculopathy, lumbar region (principal)
CPT/HCPCS: 62323; J1010

== ENCOUNTER 2023-10-18 14:31 | Outpatient (POV) | payer MEDICAID, SELFPAY ==
[2023-10-18 14:45] VITALS: BMI 27.1
--- NOTE | 2023-10-18 16:28 | A.OFFVIS_ITS ---
[facility] Disclaimer: The information contained in this section may have been updated after the patient was seen, as this information can be updated by other users. 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 Blood pressure today was 132/80. Of asked her to check her blood pressures a regular basis and bring these records back in the past and asked her again today to do that. She states she will try to remember to do that. Surgical History History of lumbar surgery History of right knee surgery Family History Other Lung cancer Social History Smoking Status: Current every day smoker tobacco type: e-cigarettes alcohol intake: current alcohol intake frequency: 3 or more drinks per day substance use type: former substance user and methamphetamine current occupational status: other Travel in the last 8 weeks: None household members: other housing: house current occupational exposures/hazards: No caffeine: Yes PM Subjective & Objective Subjective Subjective:: Patient is a pleasant 48-year-old female who presents today for follow-up of lumbar epidural steroid injection L2-L3 on 09/14/2023. Today she rates her pain a 6 out of 10. She denies any new trauma or injury from our last visit. She states she did have at least 50% improvement following this injection and it did provide about 3 weeks of relief. She does state that she has more pain in her low back and hips today. Patient describes this as an aching, throbbing sensation and denies any symptoms going into her lower extremities. She does state the pain interferes with her ability perform activities of daily living such as cooking and cleaning. Patient has had prior SI injections that did provide 80% relief however sometimes would not provide long-term relief.. Patient is interested in repeating this injection. Patient is prescribed tizanidine 4 mg 4 times a day as needed. She denies any side effects from this medication. Patient is prescribed Percocet and gabapentin from her primary care provider. Patient has had prior coronary lock procedures bilaterally. Her Tyree has been reviewed and is appropriate. Review of Systems: General: No recent weight changes, no fever, no sleep disturbances Respiratory: No cough, no shortness of air, no recurring pulmonary infections Cardiovascular/peripheral vascular: No chest pain, no palpitations, no edema, no shortness of breath Gastrointestinal: No new onset incontinence, normal bowel movements reported Genitourinary: No new onset incontinence Musculoskeletal: Low back pain, bilateral hip pain Psychiatric: [Normal mood/affect] Neurological: [Denies weakness in extremities], [denies balance issues] Pain at rest (0-10 scale): 6 Objective Objective:: Physical Exam: General: Alert and oriented x3, no acute distress, pleasant and cooperative Lungs: Respirations even and unlabored, symmetrical chest expansion Eyes: PERRL Musculoskeletal: Flexion and extension of lumbar [spine] somewhat guarded secondary to pain, [antalgic gait noted] point tenderness along bilateral SIs with positive bilateral Harlan's, Thomas's, Gaenslen's, compression and distraction exam Neurological: Speech clear, no gross sensory deficit Has patient had previous pain injection?: No Conservative treatment options previously tried: Home exercise plan Length of treatment: Longer than 8 weeks Meds Home Medications and Allergies Home Medications Medication Instructions Recorded Confirmed Type chlorthalidone 25 mg tablet 25 mg PO DAILY 60 days #60 tabs 06/03/23 10/18/23 Rx amitriptyline 25 mg tablet See Rx Instructions .Route 08/12/23 10/18/23 Rx .COMPLEX #30 tabs fluoxetine 60 mg tablet 90 mg (1.5 x 60 mg) PO DAILY 90 08/12/23 10/18/23 Rx days #135 tabs fluticasone propionate 50 See Rx Instructions .Route 08/12/23 10/18/23 Rx mcg/actuation nasal .COMPLEX #16 grams spray,suspension lamotrigine 25 mg tablet 50 mg (2 x 25 mg) PO DAILY 60 days 08/12/23 10/18/23 Rx #120 tabs lisinopril 10 mg tablet 10 mg PO DAILY 90 days #90 tabs 08/12/23 10/18/23 Rx loratadine 10 mg tablet See Rx Instructions .Route 08/12/23 10/18/23 Rx .COMPLEX #90 tabs lorazepam 0.5 mg tablet 0.5 mg PO Q4-6H PRN anxiety #30 08/12/23 10/18/23 Rx tabs omeprazole 20 mg capsule,delayed See Rx Instructions .Route 08/12/23 10/18/23 Rx release .COMPLEX #90 caps tizanidine 4 mg tablet 4 mg PO TID MUSCLES 90 days #270 08/12/23 10/18/23 Rx tabs trazodone 50 mg tablet See Rx Instructions .Route 08/12/23 10/18/23 Rx .COMPLEX #90 tabs oxycodone-acetaminophen 10 mg-325 1 tab PO Q4-6H PRN pain #120 tabs 09/02/23 10/18/23 Rx mg tablet oxycodone-acetaminophen 10 mg-325 1 tab PO QID Pain #120 tabs 09/02/23 10/18/23 Rx mg tablet (Percocet) valacyclovir 1 gram tablet 2,000 mg (2 x 1 gram) PO DAILY #2 09/02/23 10/18/23 Rx (Valtrex) tabs propranolol 20 mg tablet 20 mg PO BID #60 tabs 09/29/23 10/18/23 Rx gabapentin 800 mg tablet See Rx Instructions .Route 10/18/23 10/18/23 Rx .COMPLEX #90 tabs New Prescriptions to Start Prescriptions: Allergies Allergy/AdvReac Type Severity Reaction Status Date / Time Sulfa (Sulfonamide Allergy Severe Anaphylaxis Verified 10/18/23 14:45 Antibiotics) Assessment and Plan *Assessment and plan (1) Bilateral sacroiliitis: Status: Acute Category: Medical Code(s): M46.1 - Sacroiliitis, not elsewhere classified Plan Patient is experiencing significant pain throughout her low back and bilateral hips. Risk and benefits of the bilateral SI injections were explained to the patient and she would like to proceed forward with this plan of care. Patient did get her last SI injections back in July that did provide 80% relief and gave her improved function with overall decreased pain. Patient has continued at home stretching exercise for longer than 8 weeks with no additional change. We will submit to insurance for bilateral SI injections under fluoroscopy. I have also counseled the patient due to the chronic pain she has throughout her low back and SI joints it may be beneficial to look at possibly doing a intrathecal pain pump trial at a later date. We will follow-up with this at future visits. Patient has been instructed to contact the clinic with any concerns before the next appointment. Dr. Lee has reviewed this note and agrees with this plan of care. This note was dictated using voice recognition software and make contain errors or omissions.
== END 2023-10-18 23:59 | disposition home or self-care (01) ==
LOC: SC.PAIN 14:31
PROVIDERS: PCP Internal Medicine; Visit Provider Nurse Practitioner Family
DX: M46.1 Sacroiliitis, not elsewhere classified (principal); F17.290 Nicotine dependence, other tobacco product, uncomplicated; F15.90 Other stimulant use, unspecified, uncomplicated; Z73.89 Other problems related to life management difficulty; Z79.899 Other long term (current) drug therapy
CPT/HCPCS: 99212; G0463

== ENCOUNTER 2023-11-01 13:56 | Outpatient (RCR) | payer MEDICAID, SELFPAY ==
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
== END 2023-11-01 13:59 | disposition home or self-care (01) ==
LOC: PT 13:56
PROVIDERS: Visit Provider Internal Medicine
DX: M54.2 Cervicalgia (principal)
CPT/HCPCS: 97163

== ENCOUNTER 2023-11-16 13:52 | Day surgery (SDC) | payer MEDICAID, SELFPAY ==
[2023-11-16 13:55] VITALS: BP 117/62; PULSE 71; RESP 16; TEMP 36.7; O2SAT 99; BMI 27.1
[2023-11-16 14:08] VITALS: BP 123/68; PULSE 64; RESP 18; O2SAT 97
[2023-11-16] MEDS: LIDOCAINE 1% 5ML PF VIAL 5 ML (14:08)
[2023-11-16] MEDS: methylPREDNISolone ACETATE 80MG/ML VIAL 80 MG (14:08)
[2023-11-16 14:09] VITALS: BP 123/68; PULSE 65; RESP 18; O2SAT 97
[2023-11-16 14:14] VITALS: BP 104/56; PULSE 59; RESP 16; O2SAT 99
--- NOTE | 2023-11-16 14:38 | EXP.PAIN.PRO ---
Procedure Date: 11/16/23 Time: 14:00 Anesthesiologist:: Parker Anand CRNA Complications:: None Pre-procedure Diagnosis:: Bilateral sacroiliitis Post-procedure Diagnosis:: Same Indications for Procedure:: Patient is a pleasant 48-year-old female comes our clinic today for bilateral sacroiliac joint injections. Patient describes low lumbar back pain off the midline bilaterally as constant, dull, aching. Patient also reports difficulty transitioning from sitting to standing due to pain. She rates her pain 7/10. Procedure Details:: Procedure: Bilateral sacroiliac joint injections under fluoroscopy Informed consent was obtained and the risks and benefits of the procedure were explained to the patient.~ The patient was taken to the procedure room and noninvasive monitors were placed including a noninvasive blood pressure cuff and pulse oximeter.~ The patient was placed prone on the procedure table. Both hips were cleansed using Betadine as a cleansing solution. C-arm fluoroscopy was used to view the right sacroiliac joint.~ The skin and subcutaneous tissues were anesthetized using lidocaine 1.5% and a 25-gauge needle.~ After this, a 22-gauge spinal needle was inserted under fluoroscopic guidance into the inferior aspect of the right sacroiliac joint.~ Omnipaque dye was injected and good spread was seen throughout the joint.~ After this, approximately 5 mL of bupivacaine, 0.25% and Depo-Medrol, 40 mg was incrementally injected into the right sacroiliac joint. We then moved to the left sacroiliac joint.~ The skin and subcutaneous tissues were anesthetized using lidocaine 1.5% and a 25-gauge needle.~ After this, a 22-gauge spinal needle was inserted under fluoroscopic guidance into the inferior aspect of the left sacroiliac joint.~ Omnipaque dye was injected and good spread was seen throughout the joint. After this, approximately 5 mL of bupivacaine, 0.25% and Depo-Medrol, 40 mg was incrementally injected into the left sacroiliac joint.~ The patient tolerated the procedure well with no complications. The patient was observed in the Pain Clinic and then was discharged home neurologically intact. Plan and Disposition:: Patient was discharged without incident.
== END 2023-11-16 14:14 | disposition home or self-care (01) ==
LOC: SC.PAINP 13:52
PROVIDERS: PCP Internal Medicine; Visit Provider Nurse Anesthetist, Certified Registered
DX: M46.1 Sacroiliitis, not elsewhere classified (principal)
CPT/HCPCS: 27096; G0260; J1010

== ENCOUNTER 2024-01-31 15:20 | Outpatient (POV) | payer MEDICAID, SELFPAY ==
--- NOTE | 2024-01-31 15:31 | EXP.PAIN.SOA ---
[facility] Disclaimer: The information contained in this section may have been updated after the patient was seen, as this information can be updated by other users. Medical History Screening for breast cancer shelter use of drug Hypertension Surgical History History of lumbar surgery History of right knee surgery Family History Other Lung cancer Social History Smoking Status: Current every day smoker tobacco type: e-cigarettes alcohol intake: current alcohol intake frequency: 3 or more drinks per day substance use type: former substance user and methamphetamine current occupational status: other Travel in the last 8 weeks: None household members: other housing: house current occupational exposures/hazards: No caffeine: Yes PM Subjective & Objective Subjective Subjective:: Patient is a pleasant 48-year-old female who presents today for follow-up of bilateral SI injections on 11/16/2023. Today she rates her pain a 7 out of 10. She denies any new trauma or injury from our last visit. She does state that she did have at least 80% improvement lasting 2 to 4 weeks following these injections. She states that she was able to move around easier and do more activities with overall decreased pain. Today she does state a lot of her pain is more related to low back with numbness and tingling going down into her extremities. Patient does state the pain is constant and is interfering with her ability perform activities of daily living such as cooking and cleaning. Patient did previously have a lumbar epidural back in August that did provide upwards of 50% relief. She states she would like to see about trying this injection again. Patient has tried and failed conservative therapy including continued at home stretching exercise for longer than 12 weeks. Patient does also state that she is in the process of going through to get disability started and is asking whether or not if there is anything we can fill out on her behalf. Patient is prescribed tizanidine 4 mg 4 times a day as needed from our office. She denies any side effects from this medication. Patient is prescribed Percocet and gabapentin from her primary care provider. Her Tyree has been reviewed and is appropriate. Review of Systems: General: No recent weight changes, no fever, no sleep disturbances Respiratory: No cough, no shortness of air, no recurring pulmonary infections Cardiovascular/peripheral vascular: No chest pain, no palpitations, no edema, no shortness of breath Gastrointestinal: No new onset incontinence, normal bowel movements reported Genitourinary: No new onset incontinence Musculoskeletal: Low back pain, bilateral leg pain Psychiatric: [Normal mood/affect] Neurological: [Denies weakness in extremities], [denies balance issues] Pain at rest (0-10 scale): 7 Objective Objective:: Physical Exam: General: Alert and oriented x3, no acute distress, pleasant and cooperative Lungs: Respirations even and unlabored, symmetrical chest expansion Eyes: PERRL Musculoskeletal: Flexion and extension of lumbar [spine] somewhat guarded secondary to pain, positive leg raise Neurological: Speech clear, no gross sensory deficit Has patient had previous pain injection?: Yes Percent improvement in pain since last injection: 80% Conservative treatment options previously tried: Home exercise plan Length of treatment: Longer than 12 weeks Meds Home Medications and Allergies Home Medications ?Medication ?Instructions ?Recorded ?Confirmed ?Type chlorthalidone 25 mg tablet 25 mg PO DAILY 60 days #60 tabs 06/03/23 01/31/24 Rx fluticasone propionate 50 See Rx Instructions .Route 08/12/23 01/31/24 Rx mcg/actuation nasal .COMPLEX #16 grams spray,suspension lisinopril 10 mg tablet 10 mg PO DAILY 90 days #90 tabs 08/12/23 01/31/24 Rx loratadine 10 mg tablet See Rx Instructions .Route 08/12/23 01/31/24 Rx .COMPLEX #90 tabs omeprazole 20 mg capsule,delayed See Rx Instructions .Route 08/12/23 01/31/24 Rx release .COMPLEX #90 caps tizanidine 4 mg tablet 4 mg PO TID MUSCLES 90 days #270 08/12/23 01/31/24 Rx tabs valacyclovir 1 gram tablet 2,000 mg (2 x 1 gram) PO DAILY #2 09/02/23 01/31/24 Rx (Valtrex) tabs ezetimibe 10 mg tablet 10 mg PO DAILY #30 tabs 11/01/23 01/31/24 Rx naloxone 4 mg/actuation nasal spray 4 mg intranasal Q3M PRN opioid 11/16/23 01/31/24 Rx overdose #2 ea amitriptyline 25 mg tablet See Rx Instructions .Route 11/17/23 01/31/24 Rx .COMPLEX #30 tabs fluoxetine 60 mg tablet 90 mg (1.5 x 60 mg) PO DAILY 90 11/17/23 01/31/24 Rx days #135 tabs lamotrigine 25 mg tablet 75 mg (3 x 25 mg) PO DAILY 60 days 11/17/23 01/31/24 Rx #90 tabs propranolol 20 mg tablet 20 mg PO BID #60 tabs 11/17/23 01/31/24 Rx diazepam 5 mg tablet 5 mg PO DAILY PRN anxiety #20 tabs 12/22/23 01/31/24 Rx trazodone 50 mg tablet See Rx Instructions .Route 01/18/24 01/31/24 Rx .COMPLEX #90 tabs gabapentin 600 mg tablet 1,200 mg (2 x 600 mg) PO HS 30 01/31/24 01/31/24 Rx days #60 tabs omega-3 fatty acids-fish oil 360 1 cap PO DAILY #30 caps 01/31/24 01/31/24 Rx mg-1,200 mg capsule oxycodone-acetaminophen 10 mg-325 1 tab PO QID PRN pain #120 tabs 01/31/24 01/31/24 Rx mg tablet oxycodone-acetaminophen 10 mg-325 1 tab PO QID PRN pain #120 tabs 01/31/24 01/31/24 Rx mg tablet New Prescriptions to Start Prescriptions: Allergies Allergy/AdvReac Type Severity Reaction Status Date / Time Sulfa (Sulfonamide Allergy Severe Anaphylaxis Verified 01/31/24 14:49 Antibiotics) Assessment and Plan *Assessment and plan (1) Lumbar facet arthropathy: Status: Acute Category: Medical Code(s): M47.816 - Spondylosis without myelopathy or radiculopathy, lumbar region (2) Bilateral sacroiliitis: Status: Acute Category: Medical Code(s): M46.1 - Sacroiliitis, not elsewhere classified (3) Chronic low back pain: Status: Acute Category: Medical Code(s): M54.50 - Low back pain, unspecified; G89.29 - Other chronic pain Plan Patient did have significant improvement following her SI injections however is experiencing worsening numbness and tingling going down into her lower extremities. Patient did previously have a lumbar epidural back in August that did provide more than 50% improvement and did give her overall improvement in function with decreased pain. I did discuss with patient that I do believe she would benefit from repeat of this injection. Risk and benefits were discussed with the patient and she would like to proceed forward with this plan of care. Patient has tried and failed conservative therapy including continued at home stretching exercise for longer than 12 weeks. Patient was also counseled that we can always send a copy of our previous notes for her disability claim however we do recommend that she go through her primary care regarding the disability paperwork. Patient acknowledges understanding. Patient will be scheduled for an LESI L2-L3 under fluoroscopy. Patient has been instructed to contact the clinic with any concerns before the next appointment. Dr. Lee has reviewed this note and agrees with this plan of care. This note was dictated using voice recognition software and make contain errors or omissions. All injections are used with Lidocaine or Bupivacaine and Depo Medrol.
[2024-01-31 15:51] VITALS: BP 101/50; PULSE 59; RESP 14; O2SAT 99; BMI 25.7
== END 2024-01-31 23:59 | disposition home or self-care (01) ==
LOC: SC.PAIN 15:20
PROVIDERS: PCP Internal Medicine; Visit Provider Nurse Practitioner Family
DX: M47.816 Spondylosis without myelopathy or radiculopathy, lumbar region (principal); M46.1 Sacroiliitis, not elsewhere classified; M54.50 Low back pain, unspecified; G89.29 Other chronic pain; U07.0 Vaping-related disorder; Z73.89 Other problems related to life management difficulty; Z79.899 Other long term (current) drug therapy
CPT/HCPCS: 99212; G0463

== ENCOUNTER 2024-02-29 13:59 | Day surgery (SDC) | payer MEDICAID, SELFPAY ==
[2024-02-29 14:15] VITALS: BP 108/58; PULSE 82; RESP 16; TEMP 36.4; O2SAT 94; BMI 27.1
[2024-02-29 14:18] VITALS: BP 96/55; PULSE 73; RESP 18; O2SAT 96; O2SAT 98
[2024-02-29] MEDS: methylPREDNISolone ACETATE 80MG/ML VIAL 80 MG (14:19)
--- NOTE | 2024-02-29 14:20 | P.PCN_ITS ---
Procedure Date: 02/29/24 Time: 14:15 Anesthesiologist:: Parker Anand CRNA Complications:: None Pre-procedure Diagnosis:: Degenerative disc lumbar spine multilevels. Lumbar radiculopathy. Post-procedure Diagnosis:: Same. Indications for Procedure:: Patient is a pleasant 48-year-old female who comes our clinic today for lumbar epidural steroid injection at the L2-3 level. Patient reports significant improvement terms of her overall low back pain as well as bilateral hip and leg radicular symptoms with previous injection at the same level August 2023. She reports low back pain is constant, dull, aching. Also, bilateral hip and leg radicular symptoms. Procedure Details:: Procedure: Lumbar epidural steroid injection under fluoroscopy Informed consent was obtained and the risks and benefits of the procedure were explained to the patient. The patient was taken to the procedure room and noninvasive monitors placed, including noninvasive blood pressure cuff and pulse oximeter. The back was viewed using C-arm Fluoroscopy and prepped using Chloraprep as a cleansing solution and the L2-3 interspace was palpated. Skin and subcutaneous tissues were anesthetized using lidocaine 1.5% and a 25-gauge needle. After this, an 18-gauge Touhy epidural needle was placed into the L2-3 interspace and advanced using fluoroscopic guidance and loss of resistance to air until the epidural space was encountered. After confirmation of needle plac ement in the epidural space, with dye, a solution containing normal saline, 3 mL and Depo-Medrol 80 mg were incrementally injected into the lumbar epidural space. The patient tolerated the procedure well with no complications. The patient was observed in the Pain Clinic and then discharged home neurologically intact. Plan and Disposition:: Patient was discharged without incident.
--- NOTE | 2024-02-29 14:48 | PC.NURSE ---
Pt BP low after procedure. Provider was at bedside to speak with pt. Pt awake and oriented x3. Pt given a drink and is sitting in recliner.
[2024-02-29 14:50] VITALS: BP 95/53; PULSE 66; RESP 16; O2SAT 97
--- NOTE | 2024-02-29 14:51 | PC.NURSE ---
provider saw pt at bedside. ok for pt to be d/c
== END 2024-02-29 14:52 | disposition home or self-care (01) ==
PROVIDERS: PCP Internal Medicine; Visit Provider Nurse Anesthetist, Certified Registered
DX: M51.16 Intervertebral disc disorders with radiculopathy, lumbar region (principal)
CPT/HCPCS: 62323; J1010

== ENCOUNTER 2024-03-09 15:05 | Outpatient (CLI) | payer MEDICAID, SELFPAY ==
[2024-03-09 18:13] LABS: Chol/HDL Ratio 1.7 (1-3.5); Cholesterol 166 mg/dl (140-200); HDL Cholesterol 95 mg/dl (40-60); Triglycerides 269 mg/dl (30-150); VLDL Cholesterol 54 mg/dL (0-40)
== END 2024-03-09 23:59 | disposition home or self-care (01) ==
LOC: LAB.DROPOF 03-10 10:47
PROVIDERS: PCP Internal Medicine; Visit Provider Internal Medicine
DX: E78.1 Pure hyperglyceridemia (principal)
CPT/HCPCS: 80061

== ENCOUNTER 2024-04-20 14:57 | Outpatient (POV) | payer MEDICAID, SELFPAY ==
--- NOTE | 2024-04-20 16:04 | EXP.PAIN.SOA ---
[facility] Disclaimer: The information contained in this section may have been updated after the patient was seen, as this information can be updated by other users. Medical History Screening for breast cancer senior living use of drug Hypertension Surgical History History of lumbar surgery History of right knee surgery Family History Other Lung cancer Social History Smoking Status: Current every day smoker tobacco type: e-cigarettes alcohol intake: current alcohol intake frequency: 3 or more drinks per day substance use type: former substance user and methamphetamine current occupational status: other Travel in the last 8 weeks: None household members: other housing: house current occupational exposures/hazards: No caffeine: Yes PM Subjective & Objective Subjective Subjective:: Patient is a pleasant 48-year-old female who presents today for worsening back pain. She rates her pain today an 8 out of 10. Patient did previously have a lumbar epidural of L2-L3 on 02/29/2024 and states this did provide at least 50 improvement and currently is working well. Her complaint is more related to her bilateral hips at today's visit. She describes it as an aching, throbbing sensation that is worse with increased activity or prolonged positioning. She states that she does have to frequently change positions when she is seated due to the worsening pain. Patient does have a longstanding history of chronic sacroiliitis and does get injections that do significantly improve her symptoms. Patient had her last injection in October that did provide 80% relief lasting roughly 2 to 4 weeks. Patient does state that she would like to see about getting additional injections. Patient is prescribed tizanidine 4 mg 4 times a day from our office and Percocet and gabapentin from her PCP. She is requesting refills on her tizanidine and is also asking if we could possibly do a dose of oral steroids. Her Tyree has been reviewed and is appropriate. Review of Systems: General: No recent weight changes, no fever, no sleep disturbances Respiratory: No cough, no shortness of air, no recurring pulmonary infections Cardiovascular/peripheral vascular: No chest pain, no palpitations, no edema, no shortness of breath Gastrointestinal: No new onset incontinence, normal bowel movements reported Genitourinary: No new onset incontinence Musculoskeletal: Low back pain, bilateral hip pain Psychiatric: [Normal mood/affect] Neurological: [Denies weakness in extremities], [denies balance issues] Pain at rest (0-10 scale): 8 Objective Objective:: Physical Exam: General: Alert and oriented x3, no acute distress, pleasant and cooperative Lungs: Respirations even and unlabored, symmetrical chest expansion Eyes: PERRL Musculoskeletal: Flexion and extension of lumbar [spine] somewhat guarded secondary to pain, [antalgic gait noted] point tenderness along bilateral SIs with positive bilateral Harlan's, Thomas's, Gaenslen's, compression and distraction exam Neurological: Speech clear, no gross sensory deficit Has patient had previous pain injection?: Yes Percent improvement in pain since last injection: 50% Conservative treatment options previously tried: Home exercise plan Length of treatment: Longer than 12 weeks Meds Home Medications and Allergies Home Medications ?Medication ?Instructions ?Recorded ?Confirmed ?Type lisinopril 10 mg tablet 10 mg PO DAILY 90 days #90 tabs 08/12/23 04/19/24 Rx loratadine 10 mg tablet See Rx Instructions .Route 08/12/23 04/19/24 Rx .COMPLEX #90 tabs valacyclovir 1 gram tablet 2,000 mg (2 x 1 gram) PO DAILY #2 09/02/23 04/19/24 Rx (Valtrex) tabs naloxone 4 mg/actuation nasal spray 4 mg intranasal Q3M PRN opioid 11/16/23 04/19/24 Rx overdose #2 ea propranolol 20 mg tablet 20 mg PO BID #60 tabs 11/17/23 04/19/24 Rx omega-3 fatty acids-fish oil 360 1 cap PO DAILY #30 caps 01/31/24 04/19/24 Rx mg-1,200 mg capsule amitriptyline 50 mg tablet 50 mg PO DAILY #30 tabs 02/02/24 04/19/24 Rx fluoxetine 60 mg tablet 90 mg (1.5 x 60 mg) PO DAILY 90 02/02/24 04/19/24 Rx days #135 tabs chlorthalidone 25 mg tablet See Rx Instructions .Route 02/15/24 04/19/24 Rx .COMPLEX #60 tabs ezetimibe 10 mg tablet See Rx Instructions .Route 02/15/24 04/19/24 Rx .COMPLEX #30 tabs omeprazole 20 mg capsule,delayed See Rx Instructions .Route 02/15/24 04/19/24 Rx release .COMPLEX #90 caps gabapentin 800 mg tablet 800 mg PO TID #90 tabs 02/16/24 04/19/24 Rx fluticasone propionate 50 See Rx Instructions .Route 03/09/24 04/19/24 Rx mcg/actuation nasal .COMPLEX #16 grams spray,suspension oxycodone-acetaminophen 10 mg-325 1 tab PO QID PRN pain 30 days #120 03/09/24 04/19/24 Rx mg tablet tabs hydroxyzine HCl 25 mg tablet 25 - 50 mg (1 - 2 x 25 mg) PO TID 04/10/24 04/19/24 Rx PRN itching #60 tabs diazepam 5 mg tablet 5 mg PO DAILY PRN anxiety #30 tabs 04/19/24 04/19/24 Rx oxcarbazepine 150 mg tablet 150 mg PO BID #60 tabs 04/19/24 04/19/24 Rx (Trileptal) prednisone 20 mg tablet 20 mg PO BID #10 tabs 04/20/24 Rx tizanidine 4 mg tablet 4 mg PO TID MUSCLES 90 days #270 04/20/24 Rx tabs New Prescriptions to Start Prescriptions: prednisone Mellissa Silva tizanidine Mellissa Silva Allergies Allergy/AdvReac Type Severity Reaction Status Date / Time Sulfa (Sulfonamide Allergy Severe Anaphylaxis Verified 04/19/24 15:11 Antibiotics) Assessment and Plan *Assessment and plan (1) Bilateral sacroiliitis: Status: Acute Category: Medical Code(s): M46.1 - Sacroiliitis, not elsewhere classified (2) Chronic low back pain: Status: Acute Qualifiers: Back pain laterality: bilateral Sciatica laterality: sciatica of right side Sciatica presence: with sciatica Qualified Code(s): M54.41 - Lumbago with sciatica, right side; G89.29 - Other chronic pain Category: Medical Code(s): M54.50 - Low back pain, unspecified; G89.29 - Other chronic pain Plan Patient is experiencing worsening pain along the low back and bilateral hips. They did have limited range of motion of the lumbar spine along with point tenderness along bilateral SI joints and a positive bilateral Harlan's, Thomas's, Gaenslen's, compression and distraction exam. I did discuss with the patient that I do believe they would benefit from bilateral SI injections. Risk and benefits were discussed with the patient and they would like to proceed forward with this option. Patient has tried and failed conservative therapy including continued at home stretching exercise for longer than 12 weeks. Patient has had her last SI injections In October that did provide 80% improvement and did last at that time she states for weeks. She states her movements were easier with overall decreased pain. I will refill the patient's tizanidine and provide a 3-month supply of this medication and a 5-day dose of prednisone 20 mg twice daily will be sent in. patient will be scheduled for bilateral SI injections under fluoroscopy. Patient has been instructed to contact the clinic with any concerns before the next appointment. Dr. Lee has reviewed this note and agrees with this plan of care. This note was dictated using voice recognition software and make contain errors or omissions. All injections are used with Lidocaine or Bupivacaine and Depo Medrol.
[2024-04-20 16:07] VITALS: BP 135/81; PULSE 75; RESP 16; O2SAT 98; BMI 27.1
== END 2024-04-20 23:59 | disposition home or self-care (01) ==
PROVIDERS: PCP Internal Medicine; Visit Provider Nurse Practitioner Family
DX: M46.1 Sacroiliitis, not elsewhere classified (principal); M54.41 Lumbago with sciatica, right side; G89.29 Other chronic pain; U07.0 Vaping-related disorder; Z79.899 Other long term (current) drug therapy
CPT/HCPCS: 99212; G0463

== ENCOUNTER 2024-05-22 11:30 | Outpatient (POV) | payer MEDICAID, SELFPAY ==
[2024-05-22 11:35] VITALS: BP 96/62; PULSE 71; RESP 16; O2SAT 100; BMI 27.9
--- NOTE | 2024-05-22 11:49 | EXP.PAIN.SOA ---
[facility] Disclaimer: The information contained in this section may have been updated after the patient was seen, as this information can be updated by other users. 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 Surgical History History of lumbar surgery History of right knee surgery Family History Other Lung cancer Social History Smoking Status: Current every day smoker tobacco type: e-cigarettes alcohol intake: current alcohol intake frequency: 3 or more drinks per day substance use type: former substance user and methamphetamine current occupational status: other Travel in the last 8 weeks: None household members: other housing: house current occupational exposures/hazards: No caffeine: Yes PM Subjective & Objective Subjective Subjective:: Patient is a pleasant 48-year-old female who presents today for worsening pain. She rates her pain an 8 out of 10. Patient states that she is having neck and low back pain however states that the low back pain is worse. She does state today that it is going down both her legs however states that the right leg does seem worse and even has some swelling on the lower end. Patient states the pain is interfering with her ability perform activities of daily living such as cooking and cleaning. Patient has continued conservative treatment with no additional relief. Patient is prescribed tizanidine 4 mg 4 times a day from our office and Percocet and gabapentin from her primary care. 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 She states that sometimes if she wakes up in the middle of the night and takes one of the tizanidine that it does cause more drowsiness when she wakes up. Her Tyree has been reviewed and is appropriate. Review of Systems: General: No recent weight changes, no fever, no sleep disturbances Respiratory: No cough, no shortness of air, no recurring pulmonary infections Cardiovascular/peripheral vascular: No chest pain, no palpitations, no edema, no shortness of breath Gastrointestinal: No new onset incontinence, normal bowel movements reported Genitourinary: No new onset incontinence Musculoskeletal: Low back pain, bilateral leg pain Psychiatric: [Normal mood/affect] Neurological: [Denies weakness in extremities], [denies balance issues] Pain at rest (0-10 scale): 8 Objective Objective:: Physical Exam: General: Alert and oriented x3, no acute distress, pleasant and cooperative Lungs: Respirations even and unlabored, symmetrical chest expansion Eyes: PERRL Musculoskeletal: Flexion and extension of lumbar [spine] somewhat guarded secondary to pain, [antalgic gait noted] positive leg raise Neurological: Speech clear, no gross sensory deficit FINDINGS: Hypertrophy-are intact there is no good evidence of compression fracture L5/S1.: Degenerative disc space narrowing with minimal disc bulge/with scant spurring head injury of right and left foramen. Mild foraminal encroachment but mild facet hypertrophy, arthropathy L4/5.: Disc spaces fairly well maintained with only borderline disc space narrowing to the right... Mild asymmetric disc bulge which becomes most evident at and lateral to the right foramen. Mild right foraminal encroachment. Subtle effacement of thecal sac anteriorly to the right a...; Mild/moderate facet arthropathy, hypertrophy bilateral the. Suspect minor reactive endplate changes and possible Schmorl's node on to the right at L4/5 L3/4. Disc intact unremarkable scant facet arthropathy. L2/3 disc intact unremarkable neural foramen widely patent L1/2 disc intact well hydrated unremarkable with neural foramen widely patent T12/L1 disc intact unremarkable. Conus ends appropriately at L1 . No additional observations but 3D MR myelogram image set shows no prominent findings but shows only scant epidural indentation to the right at L4/5 the IMPRESSION: mild degenerative changes with no prominent findings lumbar spine No disc herniation; no good evidence of compression fracture.. The L4/5: Mild asymmetric disc bulge to the right at L4/5. Moderate question right foramen.. Mild facet hypertrophy.. Suggestion however reactive endplate changes to the right at L4/5.. Questionable small Schmorl's node inferior to the right at L4 inferior endplate L5/S1. Degenerative disc space narrowing, with minor foraminal encroachment/minor foraminal disc bulge the Has patient had previous pain injection?: No Conservative treatment options previously tried: Home exercise plan Length of treatment: Longer than 12 weeks Meds Home Medications and Allergies Home Medications ?Medication ?Instructions ?Recorded ?Confirmed ?Type lisinopril 10 mg tablet 10 mg PO DAILY 90 days #90 tabs 08/12/23 05/22/24 Rx loratadine 10 mg tablet See Rx Instructions .Route 08/12/23 05/22/24 Rx .COMPLEX #90 tabs valacyclovir 1 gram tablet 2,000 mg (2 x 1 gram) PO DAILY #2 09/02/23 05/22/24 Rx (Valtrex) tabs naloxone 4 mg/actuation nasal spray 4 mg intranasal Q3M PRN opioid 11/16/23 05/22/24 Rx overdose #2 ea propranolol 20 mg tablet 20 mg PO BID #60 tabs 11/17/23 05/22/24 Rx omega-3 fatty acids-fish oil 360 1 cap PO DAILY #30 caps 01/31/24 05/22/24 Rx mg-1,200 mg capsule amitriptyline 50 mg tablet 50 mg PO DAILY #30 tabs 02/02/24 05/22/24 Rx fluoxetine 60 mg tablet 90 mg (1.5 x 60 mg) PO DAILY 90 02/02/24 05/22/24 Rx days #135 tabs chlorthalidone 25 mg tablet See Rx Instructions .Route 02/15/24 05/22/24 Rx .COMPLEX #60 tabs omeprazole 20 mg capsule,delayed See Rx Instructions .Route 02/15/24 05/22/24 Rx release .COMPLEX #90 caps fluticasone propionate 50 See Rx Instructions .Route 03/09/24 05/22/24 Rx mcg/actuation nasal .COMPLEX #16 grams spray,suspension diazepam 5 mg tablet 5 mg PO DAILY PRN anxiety #30 tabs 04/19/24 05/22/24 Rx oxcarbazepine 150 mg tablet 150 mg PO BID #60 tabs 04/19/24 05/22/24 Rx (Trileptal) tizanidine 4 mg tablet 4 mg PO TID MUSCLES 90 days #270 04/20/24 05/22/24 Rx tabs ezetimibe 10 mg tablet See Rx Instructions .Route 04/27/24 05/22/24 Rx .COMPLEX #30 tabs oxycodone-acetaminophen 10 mg-325 1 tab PO QID PRN pain #120 tabs 04/27/24 05/22/24 Rx mg tablet oxycodone-acetaminophen 10 mg-325 1 tab PO QID PRN pain 30 days #120 04/27/24 05/22/24 Rx mg tablet tabs aripiprazole 2 mg tablet (Abilify) 2 mg PO DAILY #30 tabs 05/17/24 05/22/24 Rx gabapentin 800 mg tablet See Rx Instructions .Route 05/22/24 05/22/24 Rx .COMPLEX #90 tabs New Prescriptions to Start Prescriptions: Allergies Allergy/AdvReac Type Severity Reaction Status Date / Time Sulfa (Sulfonamide Allergy Severe Anaphylaxis Verified 05/17/24 15:16 Antibiotics) lamotrigine Allergy Mild Hives Verified 05/17/24 15:16 Assessment and Plan *Assessment and plan (1) DDD (degenerative disc disease), lumbar: Status: Chronic Category: Medical Code(s): M51.369 - Other intervertebral disc degeneration, lumbar region without mention of lumbar back pain or lower extremity pain (2) Lumbar radiculopathy: Status: Acute Category: Medical Code(s): M54.16 - Radiculopathy, lumbar region Plan Patient is experiencing worsening pain in her low back that does radiate down into her bilateral lower extremities and does state this is further down where she notices the symptoms. Patient was counseled risk and benefits of a repeat lumbar epidural and she would like to proceed forward with this plan of care. Patient had her last lumbar epidural of L2-L3 back at the beginning of February that did provide more than 50% improvement and has lasted up until the last couple of weeks resulting in at least 2-1/2 months relief. Patient has continued conservative treatment including oral medications, heat and ice, topicals, at home stretching exercise for longer than 12 weeks between injections. We will schedule her for an LESI L4-L5 under fluoroscopy. Patient has been instructed to contact the clinic with any concerns before the next appointment. Dr. Lee has reviewed this note and agrees with this plan of care. This note was dictated using voice recognition software and make contain errors or omissions. All injections are used with Lidocaine, Bupivacaine and Depo Medrol. Occasionally urine drug screen is needed to verify patient's compliance with our office pain contract. This is ordered based off specific treatments related to chronic pain with the potential to abuse certain medications.
== END 2024-05-22 23:59 | disposition home or self-care (01) ==
LOC: SC.PAIN 11:31
PROVIDERS: PCP Internal Medicine; Visit Provider Nurse Practitioner Family
DX: M51.16 Intervertebral disc disorders with radiculopathy, lumbar region (principal); U07.0 Vaping-related disorder; Z73.89 Other problems related to life management difficulty; Z79.899 Other long term (current) drug therapy
CPT/HCPCS: 99212; G0463

== ENCOUNTER 2024-05-31 15:30 | Outpatient (CLI) | payer MEDICAID, SELFPAY ==
[2024-06-01 09:21] LABS: Basophils % 0.6 % (0.1-2.0); Eosinophils # 0.3 K/mm3 (0.0-0.4); Eosinophils % 4.9 % (0.1-12.0); Hemoglobin 10.3 g/dL (12.2-16.2); Lymphocytes # 3.5 K/mm3 (0.7-4.5); Lymphocytes % 54.4 % (10-50); Mean Corpuscular HGB Conc 30.3 g/dL (31.8-35.4); Mean Corpuscular Hemoglobin 29.1 pg (27.0-31.2); Mean Platelet Volume 10.2 fl (7.4-10.4); Monocytes # 0.6 K/mm3 (0.1-1.0); Monocytes % 8.5 % (1.7-9.3); Neutrophils % 31.4 % (37.0-80.0); Platelet Count 259 K/mm3 (142-424); Red Blood Count 3.54 M/mm3 (4.20-5.40); Red Cell Distribution Width 13.5 % (11.5-17.5); White Blood Count 6.5 K/mm3 (4.8-10.8)
[2024-06-01 09:35] LABS: MANUAL DIFFERENTIAL MANUAL DIFFERENTIAL (MANUAL DIFF)
[2024-06-01 09:50] LABS: Alanine Aminotransferase 68 U/L (12-78); Albumin Level 4.3 g/dl (3.5-5.0); Albumin/Globulin Ratio 1.9 (1.1-1.8); Alkaline Phosphatase 93 U/L (38-126); Anion Gap 13.4 mEq/L (5-15); Aspartate Amino Transferase 70 U/L (14-36); Blood Urea Nitrogen 26 mg/dl (7-17); Calcium 9.6 mg/dl (8.4-10.2); Carbon Dioxide 29 mmol/L (22.0-30.0); Chloride 101 mmol/L (98-107); Estimated Glomerular Filt Rate 53 ml/min (>60); GFR (African American) 64 ML/MIN (>60); Globulin 2.3 g/dL (1.3-3.2); Glucose 80 mg/dl (74-100); Sodium 137 mmol/L (136-145); Total Protein,Serum 6.6 g/dl (6.3-8.2)
[2024-06-01 09:52] LABS: Free T4 (Free Thyroxine) 1.01 ng/dl (0.78-2.19)
[2024-06-01 10:18] LABS: Bilirubin,Total < 0.1 mg/dl (0.2-1.3); Potassium 6.4 mmoL/L (3.5-5.1)
[2024-06-01 10:43] LABS: Eosinophils % 3 % (0-3); Lymphocytes % 68 % (10-50); Monocytes % 6 % (2-9); Neutrophils % 23 % (42-76); Total Cells Counted 100
[2024-06-01 10:44] LABS: Platelet Estimate Normal; RBC Morphology Normal
== END 2024-05-31 23:59 | disposition home or self-care (01) ==
LOC: LAB.DROPOF 06-01 13:36
PROVIDERS: PCP Nurse Practitioner Acute Care; Visit Provider Nurse Practitioner Acute Care
DX: R53.83 Other fatigue (principal); R00.1 Bradycardia, unspecified; F31.77 Bipolar disorder, in partial remission, most recent episode mixed; M54.41 Lumbago with sciatica, right side; G89.29 Other chronic pain
CPT/HCPCS: 80053; 84439; 85007; 85025; 85027; 87086

== ENCOUNTER 2024-06-01 12:06 | Emergency (ER) | payer MEDICAID, SELFPAY ==
[2024-06-01 12:09] VITALS: BP 133/70; PULSE 64; RESP 18; TEMP 36.7; O2SAT 100; BMI 26.0
--- NOTE | 2024-06-01 12:13 | HMH.EDGENADL ---
Discharge Plan Disposition Patient Disposition: Home, Self-Care Condition: Good Prescriptions Prescriptions: No Action omega-3 fatty acids-fish oil 360-1,200 mg capsule 1 cap PO DAILY Qty: 30 3RF amitriptyline 50 mg tablet 50 mg PO DAILY Qty: 30 2RF fluoxetine 60 mg tablet 90 mg PO DAILY 90 Days Qty: 135 4RF Rx Instructions: Patient may finish her 20 mg tablets by taking 3/day. When done she is to start this prescription. fluticasone propionate 50 mcg/actuation spray,suspension See Rx Instructions .ROUTE .COMPLEX Qty: 16 8RF Dose Instruction: USE 1 SPRAY IN EACH NOSTRIL ONCE DAILY Rx Instructions: USE 1 SPRAY IN EACH NOSTRIL ONCE DAILY aripiprazole [Abilify] 2 mg tablet 2 mg PO DAILY Qty: 30 2RF diazepam 5 mg tablet 5 mg PO DAILY PRN (Reason: anxiety) Qty: 30 0RF lisinopril 10 mg tablet 10 mg PO DAILY 90 Days Qty: 90 1RF loratadine 10 mg tablet See Rx Instructions .ROUTE .COMPLEX Qty: 90 3RF Dose Instruction: TAKE 1 TABLET BY MOUTH ONCE DAILY Rx Instructions: TAKE 1 TABLET BY MOUTH ONCE DAILY valacyclovir [Valtrex] 1 gram tablet 2,000 mg PO DAILY Qty: 2 0RF Rx Instructions: take two tablets once. propranolol 20 mg tablet 20 mg PO BID Qty: 60 2RF oxycodone-acetaminophen 10-325 mg tablet 1 tab PO QID PRN (Reason: pain) Qty: 120 0RF oxycodone-acetaminophen 10-325 mg tablet 1 tab PO QID PRN (Reason: pain) 30 Days Qty: 120 0RF oxcarbazepine [Trileptal] 150 mg tablet 150 mg PO BID Qty: 60 2RF naloxone 4 mg/actuation spray,non-aerosol 4 mg intranasal Q3M PRN (Reason: opioid overdose) Qty: 2 0RF Rx Instructions: spray 1 dose into ONE nostril; alternate nostrils w each dose until help arrives omeprazole 20 mg capsule,delayed release(DR/EC) See Rx Instructions .ROUTE .COMPLEX Qty: 90 0RF Dose Instruction: TAKE 1 CAPSULE BY MOUTH ONCE DAILY Rx Instructions: TAKE 1 CAPSULE BY MOUTH ONCE DAILY chlorthalidone 25 mg tablet See Rx Instructions .ROUTE .COMPLEX Qty: 60 1RF Dose Instruction: TAKE 1 TABLET ORALLY DAILY Rx Instructions: TAKE 1 TABLET ORALLY DAILY ezetimibe 10 mg tablet See Rx Instructions .ROUTE .COMPLEX Qty: 30 0RF Dose Instruction: TAKE 1 TABLET BY MOUTH ONCE DAILY Rx Instructions: TAKE 1 TABLET BY MOUTH ONCE DAILY gabapentin 800 mg tablet See Rx Instructions .ROUTE .COMPLEX Qty: 90 1RF Dose Instruction: TAKE 1 TABLET BY MOUTH THREE TIMES DAILY Rx Instructions: TAKE 1 TABLET BY MOUTH THREE TIMES DAILY tizanidine 4 mg tablet 4 mg PO TID 90 Days Qty: 270 0RF Referrals Follow up/Referrals: Humberto Hopkins DO [Primary Care Provider] - See instructions Activity Restrictions/Add. Instructions Additional Instructions/Restrictions: Follow-up with your PCP for lab recheck next week. If you have any continuing new or worsening signs or symptoms follow-up sooner. Clinical Impressions Clinical Impression: Abnormal laboratory test Print Language Print Language: Bahamian Discharge ED Provider: Saumya Norton General Adult HPI General Chief complaint: Recheck/Abnormal Lab/Rx Stated complaint: Abnormal labs-sent by Ade Cote Time Seen by Provider: 06/01/24 12:13 Mode of Arrival: Ambulatory Source of Information: Patient Description of Symptoms (Recalled from ER Triage Doc. by RN): Pt states she was called by her PCP to come in for evaluation of abnormal labs. Pt states her potassium was high but does not know the result. History of Present Illness HPI narrative: Patient presents at the behest of her mental health provider for an abnormal lab. Patient had routine labs done yesterday and when they returned showed a significant hyperkalemia of 6.5. Patient herself has no complaints denies any chest pain any muscle cramps in fact feels completely herself. No nausea vomiting diarrhea shortness of breath or palpitations. Related Data Previous Rx's ?Medication ?Instructions ?Recorded lisinopril 10 mg tablet 10 mg PO DAILY 90 days #90 tabs 08/12/23 loratadine 10 mg tablet See Rx Instructions .Route 08/12/23 .COMPLEX #90 tabs valacyclovir 1 gram tablet 2,000 mg (2 x 1 gram) PO DAILY #2 09/02/23 (Valtrex) tabs naloxone 4 mg/actuation nasal spray 4 mg intranasal Q3M PRN opioid 11/16/23 overdose #2 ea propranolol 20 mg tablet 20 mg PO BID #60 tabs 11/17/23 omega-3 fatty acids-fish oil 360 1 cap PO DAILY #30 caps 01/31/24 mg-1,200 mg capsule amitriptyline 50 mg tablet 50 mg PO DAILY #30 tabs 02/02/24 fluoxetine 60 mg tablet 90 mg (1.5 x 60 mg) PO DAILY 90 02/02/24 days #135 tabs chlorthalidone 25 mg tablet See Rx Instructions .Route 02/15/24 .COMPLEX #60 tabs omeprazole 20 mg capsule,delayed See Rx Instructions .Route 02/15/24 release .COMPLEX #90 caps fluticasone propionate 50 See Rx Instructions .Route 03/09/24 mcg/actuation nasal .COMPLEX #16 grams spray,suspension oxcarbazepine 150 mg tablet 150 mg PO BID #60 tabs 04/19/24 (Trileptal) tizanidine 4 mg tablet 4 mg PO TID MUSCLES 90 days #270 04/20/24 tabs ezetimibe 10 mg tablet See Rx Instructions .Route 04/27/24 .COMPLEX #30 tabs oxycodone-acetaminophen 10 mg-325 1 tab PO QID PRN pain #120 tabs 04/27/24 mg tablet oxycodone-acetaminophen 10 mg-325 1 tab PO QID PRN pain 30 days #120 25 mg tablet tabs aripiprazole 2 mg tablet (Abilify) 2 mg PO DAILY #30 tabs 05/17/24 diazepam 5 mg tablet 5 mg PO DAILY PRN anxiety #30 tabs 05/22/24 gabapentin 800 mg tablet See Rx Instructions .Route 05/22/24 .COMPLEX #90 tabs Allergies Allergy/AdvReac Type Severity Reaction Status Date / Time Sulfa (Sulfonamide Allergy Severe Anaphylaxis Verified 05/31/24 14:58 Antibiotics) lamotrigine Allergy Mild Hives Verified 05/31/24 14:58 [facility] Disclaimer: The information contained in this section may have been updated after the patient was seen, as this information can be updated by other users. Medical History Screening for breast cancer long-term use of drug Hypertension Surgical History History of lumbar surgery History of right knee surgery Family History Other Lung cancer Social History Smoking Status: Current every day smoker tobacco type: e-cigarettes alcohol intake: current alcohol intake frequency: 3 or more drinks per day substance use type: former substance user and methamphetamine current occupational status: other Travel in the last 8 weeks: None household members: other housing: house current occupational exposures/hazards: No caffeine: Yes Have you lived/traveled outside [place] in past 30 days?: No Contact w/someone who lives/traveled outside [place] past 30 days?: No Exposure to someone with infectious disease in past 14 days?: No Do you have a fever (greater than 100.4 F or 38 C)?: No Have you tested positive for COVID-19: No Exposed to someone with COVID-19 in past 14 days?: No Do you have a sore throat?: No Do you have a cough?: No Do you have any weakness?: No Do you have any diarrhea?: No Are you experiencing any unusual bleeding?: No Do you have any muscle aches/pain?: No Do you have any abdominal pain?: No Are you experiencing loss of taste or smell?: No Other Medical History Have you received the Flu Vaccine for this season: No Have you received the Pneumonia Vaccine: No ROS Obtained: Yes Systems reviewed as appropriate & no additional complaints except as documented Physical Exam General General appearance: alert Respiratory Respiratory exam: Present normal lung sounds bilaterally Cardiovascular Cardiovascular exam: Present regular rate Neurological Exam Neurological exam: Present alert, oriented X3 and CN II-XII intact Medical Decision Making Medical Records Medical records reviewed: Yes I reviewed the patient's medical records. Screening: Per USPSTF and CDC recommendations, given the prevalence of disease in our region, it is our hospital?s policy to screen for HIV and viral Hepatitis for all patients aged 18 and over and those with ongoing risk factors. Tyree Inquiry Pt receiving controlled substance: No Vital Signs: 06/01/24 12:09 06/01/24 13:06 Temperature 98.0 F 97.7 F Temperature Source Oral Pulse Rate 74 Pulse Rate [Right] 64 Respiratory Rate 18 20 Blood Pressure 151/96 H Blood Pressure [Right Arm] 133/70 Blood Pressure Mean [Right Arm] 91 Blood Pressure Source [Right Arm] Automatic Cuff Blood Pressure Position [Right Arm] Sitting 02 Sat by Pulse Oximetry 100 Oxygen Delivery Method Room Air Room Air Lab Data Lab results reviewed: Yes I reviewed the patient's lab results. Lab Results 06/01/24 12:40: WBC 6.3, RBC 3.56 L, Hgb 10.4 L, Hct 32.6 L, MCV 91.6, MCH 29.2, MCHC 31.9, RDW 13.0, Plt Count 237, MPV 9.5, Neut % (Auto) 47.3, Lymph % (Auto) 37.1, [place] % (Auto) 9.0, Eos % (Auto) 5.7, Baso % (Auto) 0.6, Neut # (Auto) 3.0, Lymph # (Auto) 2.4, [place] # (Auto) 0.6, Eos # (Auto) 0.4, Baso # (Auto) 0.0, Sodium 136, Potassium 4.5 D, Chloride 102, Carbon Dioxide 29, Anion Gap 9.5, BUN 21 H, Creatinine 1.00, Estimated Creat Clear 96, Estimated GFR 59, Est GFR ( Amer) 72, Glucose 110 H D, Calcium 9.6, Phosphorus 2.8, Magnesium 1.9, Total Bilirubin 0.1 L, AST 72 H, ALT 70, Alkaline Phosphatase 102, Total Protein 6.8, Albumin 4.4, Globulin 2.4, Albumin/Globulin Ratio 1.8 06/01/24 12:40 06/01/24 12:40 Orders (Tests/Meds): ORDERS Category Date Time Status CBC w/Auto Diff [Complete Blood Count Auto Diff] Stat Lab 06/01/24 12:40 Completed CMP [Comprehensive Metabolic Panel] Stat Lab 06/01/24 12:40 Completed Magnesium Stat Lab 06/01/24 12:40 Completed Phosphorous Stat Lab 06/01/24 12:40 Completed Thyroid Panel Stat Lab 06/01/24 12:40 Received Medical Decision Narrative: In summary patient is a 48-year-old female who presents to the emergency department for evaluation of normal lab results. Patient is hemodynamically stable upon arrival, afebrile. Physical exam is unremarkable nonfocal including [place] Coma Score 15 normal breath sounds without increased work of breathing normal sinus rhythm on the bedside monitor no focal neurologic deficits no tremors or cramping. Differential diagnosis includes laboratory error versus hemolysis versus medication cause [employer]. Initial workup will be conducted with [facility] labs.. Initial interventions are deferred until lab results are back. Initial workup reviewed by me and indeed her hematologic labs are significant for a normal potassium of 4.5 normal renal function and the remainder of her labs are nonactionable.. Given this the results were explained to the patient as it could have been hemolysis or inadvertent lab error however she should have her potassium rechecked by her PCP within the next week or sooner if she has any new or worsening signs or symptoms. Critical Care Critical Care Time Critical Care Time: No
--- NOTE | 2024-06-01 12:17 | ECG_ITS ---
APPROVED REPORT Exam: Resting ECG HR:66 bpm ECG Measurements Heart Rate 66 AXES ID 160 P 57 QRSd 90 QRS 62 QT 432 T 40 QTc 445 Conclusion SINUS RHYTHM NORMAL ECG UNCONFIRMED REPORT Electronically signed by : Omkar Norton, 06/01/2024 15:23:41
[2024-06-01 12:44] LABS: Basophils % 0.6 % (0.1-2.0); Eosinophils # 0.4 K/mm3 (0.0-0.4); Eosinophils % 5.7 % (0.1-12.0); Hematocrit 32.6 % (37.0-47.0); Hemoglobin 10.4 g/dL (12.2-16.2); Lymphocytes # 2.4 K/mm3 (0.7-4.5); Lymphocytes % 37.1 % (10-50); Mean Corpuscular HGB Conc 31.9 g/dL (31.8-35.4); Mean Corpuscular Hemoglobin 29.2 pg (27.0-31.2); Mean Corpuscular Volume 91.6 fl (81-99); Mean Platelet Volume 9.5 fl (7.4-10.4); Monocytes # 0.6 K/mm3 (0.1-1.0); Neutrophils % 47.3 % (37.0-80.0); Platelet Count 237 K/mm3 (142-424); Red Blood Count 3.56 M/mm3 (4.20-5.40); White Blood Count 6.3 K/mm3 (4.8-10.8)
[2024-06-01 12:51] LABS: Albumin Level 4.4 g/dl (3.5-5.0); Chloride 102 mmol/L (98-107); Potassium 4.5 mmoL/L (3.5-5.1); Sodium 136 mmol/L (136-145)
[2024-06-01 12:54] LABS: Alanine Aminotransferase 70 U/L (12-78); Albumin/Globulin Ratio 1.8 (1.1-1.8); Alkaline Phosphatase 102 U/L (38-126); Anion Gap 9.5 mEq/L (5-15); Aspartate Amino Transferase 72 U/L (14-36); Blood Urea Nitrogen 21 mg/dl (7-17); Carbon Dioxide 29 mmol/L (22.0-30.0); Creatinine Clearance Estimated 96 mL/min (50-200); Estimated Glomerular Filt Rate 59 ml/min (>60); GFR (African American) 72 ML/MIN (>60); Globulin 2.4 g/dL (1.3-3.2); Phosphorous 2.8 mg/dl (2.5-4.5); Total Protein,Serum 6.8 g/dl (6.3-8.2)
[2024-06-01 12:55] LABS: Calcium 9.6 mg/dl (8.4-10.2); Glucose 110 mg/dl (74-100); Magnesium 1.9 mg/dl (1.6-2.3)
[2024-06-01 12:56] LABS: Bilirubin,Total 0.1 mg/dl (0.2-1.3)
[2024-06-01 13:06] VITALS: BP 151/96; PULSE 74; RESP 20; TEMP 36.5; O2SAT 99
[2024-06-01 15:03] LABS: Triiodothryronine (T3) Uptake 31 % (23.5-40.5)
[2024-06-01 15:04] LABS: Free Thyroxine Index 2.2 ug/dL (5.93-13.13); T4 (Thyroxine) 7.2 ug/dl (5.53-11.0)
[2024-06-01 15:17] LABS: Thyroid Stimulating Hormone 1.57 uIU/mL (0.465-4.68)
== END 2024-06-01 13:07 | disposition home or self-care (01) ==
PROVIDERS: Physician Assistant; Emergency Provider Student in an Organized Health Care Education/Training Program; PCP Internal Medicine
DX: E87.5 Hyperkalemia (principal)
CPT/HCPCS: 80053; 83735; 84100; 84436; 84443; 84479; 85025; 93005; 99283

== ENCOUNTER 2024-06-05 14:21 | Emergency (ER) | payer MEDICAID, SELFPAY ==
[2024-06-05] VITALS (12 sets, daily range): BP systolic 97–140; BP diastolic 51–78; PULSE 48–62; RESP 16–18; TEMP 36.3–36.8; O2SAT 95–100; BMI 29.2
--- NOTE | 2024-06-05 14:37 | HMH.EDGENADL ---
Discharge Plan Disposition Patient Disposition: Home, Self-Care Condition: Good Prescriptions Prescriptions: New metronidazole 500 mg tablet 500 mg PO BID 7 Days Qty: 14 0RF No Action omega-3 fatty acids-fish oil 360-1,200 mg capsule 1 cap PO DAILY Qty: 30 3RF amitriptyline 50 mg tablet 50 mg PO DAILY Qty: 30 2RF fluoxetine 60 mg tablet 90 mg PO DAILY 90 Days Qty: 135 4RF Rx Instructions: Patient may finish her 20 mg tablets by taking 3/day. When done she is to start this prescription. fluticasone propionate 50 mcg/actuation spray,suspension See Rx Instructions .ROUTE .COMPLEX Qty: 16 8RF Dose Instruction: USE 1 SPRAY IN EACH NOSTRIL ONCE DAILY Rx Instructions: USE 1 SPRAY IN EACH NOSTRIL ONCE DAILY aripiprazole [Abilify] 2 mg tablet 2 mg PO DAILY Qty: 30 2RF diazepam 5 mg tablet 5 mg PO DAILY PRN (Reason: anxiety) Qty: 30 0RF lisinopril 10 mg tablet 10 mg PO DAILY 90 Days Qty: 90 1RF loratadine 10 mg tablet See Rx Instructions .ROUTE .COMPLEX Qty: 90 3RF Dose Instruction: TAKE 1 TABLET BY MOUTH ONCE DAILY Rx Instructions: TAKE 1 TABLET BY MOUTH ONCE DAILY valacyclovir [Valtrex] 1 gram tablet 2,000 mg PO DAILY Qty: 2 0RF Rx Instructions: take two tablets once. propranolol 20 mg tablet 20 mg PO BID Qty: 60 2RF oxycodone-acetaminophen 10-325 mg tablet 1 tab PO QID PRN (Reason: pain) Qty: 120 0RF oxycodone-acetaminophen 10-325 mg tablet 1 tab PO QID PRN (Reason: pain) 30 Days Qty: 120 0RF oxcarbazepine [Trileptal] 150 mg tablet 150 mg PO BID Qty: 60 2RF naloxone 4 mg/actuation spray,non-aerosol 4 mg intranasal Q3M PRN (Reason: opioid overdose) Qty: 2 0RF Rx Instructions: spray 1 dose into ONE nostril; alternate nostrils w each dose until help arrives chlorthalidone 25 mg tablet See Rx Instructions .ROUTE .COMPLEX Qty: 60 1RF Dose Instruction: TAKE 1 TABLET ORALLY DAILY Rx Instructions: TAKE 1 TABLET ORALLY DAILY gabapentin 800 mg tablet See Rx Instructions .ROUTE .COMPLEX Qty: 90 1RF Dose Instruction: TAKE 1 TABLET BY MOUTH THREE TIMES DAILY Rx Instructions: TAKE 1 TABLET BY MOUTH THREE TIMES DAILY ezetimibe 10 mg tablet See Rx Instructions .ROUTE .COMPLEX Qty: 90 3RF Dose Instruction: TAKE 1 TABLET BY MOUTH ONCE DAILY Rx Instructions: TAKE 1 TABLET BY MOUTH ONCE DAILY omeprazole 20 mg capsule,delayed release(DR/EC) See Rx Instructions .ROUTE .COMPLEX Qty: 90 0RF Dose Instruction: TAKE 1 CAPSULE BY MOUTH ONCE DAILY Rx Instructions: TAKE 1 CAPSULE BY MOUTH ONCE DAILY tizanidine 4 mg tablet 4 mg PO TID 90 Days Qty: 270 0RF Referrals Follow up/Referrals: Humberto Hopkins DO [Primary Care Provider] - See instructions Steven Blackmon MD [Staff Physician] - See instructions Activity Restrictions/Add. Instructions Additional Instructions/Restrictions: I referred you to cardiology for better blood pressure management and control as well as further workup and care. If you have continued new or worsening signs or symptoms follow-up with your PCP return to the ER as needed. I am treating you for your urinary tract infectious disease. Please take all of your antibiotics till they are gone. Clinical Impressions Clinical Impression: Orthostatic hypotension Urinary tract infectious disease Qualifiers: Urinary tract infection type: site unspecified Hematuria presence: without hematuria Qualified Code(s): N39.0 - Urinary tract infection, site not specified Print Language Print Language: [place] Discharge ED Provider: Mihai Perez Adult HPI <PEG Harrison - Last Filed: 06/05/24 23:10> General Chief complaint: Dizziness Stated complaint: low BP, swelling in legs and feet Time Seen by Provider: 06/05/24 14:37 History of Present Illness HPI narrative: Patient presents for evaluation of lightheadedness. Patient reports that she has had increasing lightheadedness primarily upon standing and walking. She describes no dizziness no focal neurologic deficits fever chills chest pain shortness of breath hemoptysis hematochezia melena hematemesis hematuria dysuria nausea vomiting or diarrhea. Related Data Previous Rx's ?Medication ?Instructions ?Recorded lisinopril 10 mg tablet 10 mg PO DAILY 90 days #90 tabs 08/12/23 loratadine 10 mg tablet See Rx Instructions .Route 08/12/23 .COMPLEX #90 tabs valacyclovir 1 gram tablet 2,000 mg (2 x 1 gram) PO DAILY #2 09/02/23 (Valtrex) tabs naloxone 4 mg/actuation nasal spray 4 mg intranasal Q3M PRN opioid 11/16/23 overdose #2 ea propranolol 20 mg tablet 20 mg PO BID #60 tabs 11/17/23 omega-3 fatty acids-fish oil 360 1 cap PO DAILY #30 caps 01/31/24 mg-1,200 mg capsule amitriptyline 50 mg tablet 50 mg PO DAILY #30 tabs 02/02/24 fluoxetine 60 mg tablet 90 mg (1.5 x 60 mg) PO DAILY 90 02/02/24 days #135 tabs chlorthalidone 25 mg tablet See Rx Instructions .Route 02/15/24 .COMPLEX #60 tabs fluticasone propionate 50 See Rx Instructions .Route 03/09/24 mcg/actuation nasal .COMPLEX #16 grams spray,suspension oxcarbazepine 150 mg tablet 150 mg PO BID #60 tabs 04/19/24 (Trileptal) tizanidine 4 mg tablet 4 mg PO TID MUSCLES 90 days #270 04/20/24 tabs oxycodone-acetaminophen 10 mg-325 1 tab PO QID PRN pain #120 tabs 25 mg tablet oxycodone-acetaminophen 10 mg-325 1 tab PO QID PRN pain 30 days #120 04/27/25 mg tablet tabs aripiprazole 2 mg tablet (Abilify) 2 mg PO DAILY #30 tabs 05/17/24 diazepam 5 mg tablet 5 mg PO DAILY PRN anxiety #30 tabs 05/22/24 gabapentin 800 mg tablet See Rx Instructions .Route 05/22/24 .COMPLEX #90 tabs metronidazole 500 mg tablet 500 mg PO BID 7 days #14 tabs 06/05/24 ezetimibe 10 mg tablet See Rx Instructions .Route 06/06/24 .COMPLEX #90 tabs omeprazole 20 mg capsule,delayed See Rx Instructions .Route 06/06/24 release .COMPLEX #90 caps Allergies Allergy/AdvReac Type Severity Reaction Status Date / Time Sulfa (Sulfonamide Allergy Severe Anaphylaxis Verified 05/31/24 14:58 Antibiotics) lamotrigine Allergy Mild Hives Verified 05/31/24 14:58 PFS <PEG Harrison - Last Filed: 06/05/24 23:10> [facility] Disclaimer: The information contained in this section may have been updated after the patient was seen, as this information can be updated by other users. 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 Surgical History History of lumbar surgery History of right knee surgery Family History Other Lung cancer Social History Smoking Status: Unknown if ever smoked alcohol intake: current alcohol intake frequency: 3 or more drinks per day substance use type: former substance user and methamphetamine current occupational status: other Travel in the last 8 weeks: None household members: other housing: house current occupational exposures/hazards: No caffeine: Yes Have you lived/traveled outside [place] in past 30 days?: No Contact w/someone who lives/traveled outside US past 30 days?: No Exposure to someone with infectious disease in past 14 days?: No Do you have a fever (greater than 100.4 F or 38 C)?: No Have you tested positive for COVID-19: No Exposed to someone with COVID-19 in past 14 days?: No Do you have a sore throat?: No Do you have a cough?: No Do you have any weakness?: No Do you have any diarrhea?: No Are you experiencing any unusual bleeding?: No Do you have any muscle aches/pain?: No Do you have any abdominal pain?: No Are you experiencing loss of taste or smell?: No Other Medical History Have you received the Flu Vaccine for this season: No Have you received the Pneumonia Vaccine: No <PEG Harrison - Last Filed: 06/05/24 23:10> ROS Obtained: Yes Systems reviewed as appropriate & no additional complaints except as documented Physical Exam <PEG Harrison - Last Filed: 06/05/24 23:10> General General appearance: alert and in no apparent distress Respiratory Respiratory exam: Present normal lung sounds bilaterally Cardiovascular Cardiovascular exam: Present regular rate Neurological Exam Neurological exam: Present alert and oriented X3 Medical Decision Making <PEG Harrison - Last Filed: 06/05/24 23:10> Medical Records Medical records reviewed: Yes I reviewed the patient's medical records. Screening: Per USPSTF and CDC recommendations, given the prevalence of disease in our region, it is our hospital?s policy to screen for HIV and viral Hepatitis for all patients aged 18 and over and those with ongoing risk factors. Tyree Inquiry Pt receiving controlled substance: No Vital Signs: 06/05/24 14:45 06/05/24 14:49 06/05/24 15:01 Temperature 97.4 F L Temperature Source Oral Pulse Rate 60 60 Pulse Rate [Left Radial] 62 Pulse Rate [Orthostatic Lying Left Radial] Pulse Rate [Orthostatic Sitting Right Radial] Pulse Rate [Orthostatic Standing Right Radial] Respiratory Rate 18 Blood Pressure 106/65 L 101/65 L Blood Pressure [Orthostatic Lying Left Arm] Blood Pressure [Orthostatic Sitting Left Arm] Blood Pressure [Orthostatic Standing Left Arm] Blood Pressure [Right Arm] 109/64 L Blood Pressure Mean Blood Pressure Mean [Right Arm] 79 Blood Pressure Source Blood Pressure Position 02 Sat by Pulse Oximetry 100 97 97 Oxygen Delivery Method Room Air Room Air Room Air 06/05/24 15:15 06/05/24 15:30 06/05/24 15:48 Temperature Temperature Source Pulse Rate 60 57 L 59 L Pulse Rate [Left Radial] Pulse Rate [Orthostatic Lying Left Radial] Pulse Rate [Orthostatic Sitting Right Radial] Pulse Rate [Orthostatic Standing Right Radial] Respiratory Rate Blood Pressure 97/63 L 98/68 L 97/57 L Blood Pressure [Orthostatic Lying Left Arm] Blood Pressure [Orthostatic Sitting Left Arm] Blood Pressure [Orthostatic Standing Left Arm] Blood Pressure [Right Arm] Blood Pressure Mean Blood Pressure Mean [Right Arm] Blood Pressure Source Blood Pressure Position 02 Sat by Pulse Oximetry 99 98 99 Oxygen Delivery Method Room Air Room Air Room Air 06/05/24 16:00 06/05/24 16:15 06/05/24 16:30 Temperature Temperature Source Pulse Rate 52 L 48 L 53 L Pulse Rate [Left Radial] Pulse Rate [Orthostatic Lying Left Radial] Pulse Rate [Orthostatic Sitting Right Radial] Pulse Rate [Orthostatic Standing Right Radial] Respiratory Rate 16 16 Blood Pressure 122/67 113/60 116/65 Blood Pressure [Orthostatic Lying Left Arm] Blood Pressure [Orthostatic Sitting Left Arm] Blood Pressure [Orthostatic Standing Left Arm] Blood Pressure [Right Arm] Blood Pressure Mean 73 82 Blood Pressure Mean [Right Arm] Blood Pressure Source Blood Pressure Position 02 Sat by Pulse Oximetry 97 100 97 Oxygen Delivery Method Room Air 06/05/24 16:46 06/05/24 17:08 06/05/24 17:15 Temperature 98.2 F Temperature Source Oral Pulse Rate 50 L 60 Pulse Rate [Left Radial] Pulse Rate [Orthostatic Lying Left Radial] 57 L Pulse Rate [Orthostatic Sitting Right Radial] 56 L Pulse Rate [Orthostatic Standing Right Radial] 55 L Respiratory Rate 16 Blood Pressure 125/51 L 135/70 Blood Pressure [Orthostatic Lying Left Arm] 140/78 Blood Pressure [Orthostatic Sitting Left Arm] 133/74 Blood Pressure [Orthostatic Standing Left Arm] 138/75 Blood Pressure [Right Arm] Blood Pressure Mean Blood Pressure Mean [Right Arm] Blood Pressure Source Automatic Cuff Blood Pressure Position Sitting 02 Sat by Pulse Oximetry 98 Oxygen Delivery Method Room Air Room Air Lab Data Lab results reviewed: Yes I reviewed the patient's lab results. Lab Results 06/05/24 14:40: Urine Color Yellow, Urine Appearance Clear, Urine pH 6.5, Ur Specific [place] 1.015, Urine Protein Negative, Urine Glucose (UA) Negative, Urine Ketones Negative, Urine Blood Negative, Urine Nitrate Negative, Urine Bilirubin Negative, Urine Urobilinogen 0.2, Ur Leukocyte Esterase Trace A, Urine RBC None, Urine WBC 3-5, Ur Squamous Epith Cells 5-10, Urine Bacteria Trace, Urine Trichomonas 1+, Urine Opiates Screen Negative, Urine Methadone Screen Negative, Ur Barbituates Screen Negative, Ur Phencyclidine Scrn Negative, Ur Amphetamines Screen Negative, U Benzodiazepines Scrn Positive H, Urine Cocaine Screen Negative, U Marijuana (THC) Screen Negative 06/05/24 14:55: WBC 7.3, RBC 3.60 L, Hgb 10.6 L, Hct 33.0 L, MCV 91.7, MCH 29.4, MCHC 32.1, RDW 12.9, Plt Count 242, MPV 9.4, Neut % (Auto) 47.7, Lymph % (Auto) 37.0, [place] % (Auto) 7.7, Eos % (Auto) 6.4, Baso % (Auto) 0.8, Neut # (Auto) 3.5, Lymph # (Auto) 2.7, [place] # (Auto) 0.6, Eos # (Auto) 0.5 H, Baso # (Auto) 0.1, Sodium 133 L, Potassium 4.5, Chloride 101, Carbon Dioxide 25, Anion Gap 11.5, BUN 17, Creatinine 0.90, Estimated Creat Clear 120, Estimated GFR 67, Est GFR ( Amer) 81, Glucose 145 H, Calcium 9.3, Magnesium 1.8, Total Bilirubin 0.2, AST 59 H, ALT 60, Alkaline Phosphatase 87, Total Protein 6.5, Albumin 4.1, Globulin 2.4, Albumin/Globulin Ratio 1.7, Procalcitonin 0.075, HCV Ab [place] w/Rflx PCR Qn Reactive, HIV Ag/Ab Combo Qual Negative 06/05/24 14:55 06/05/24 14:55 Orders (Tests/Meds): ED MEDICATIONS Discontinued Medications Generic Name Dose Route Start Last Admin Trade Name Freq PRN Reason Stop Dose Admin Acetaminophen 1,000 mg 06/05/24 14:57 06/05/24 15:04 Acetaminophen 500mg Tab PO 06/05/24 14:58 1,000 mg ONCE ONE Administration Sodium Chloride 1,000 mls @ 999 mls/hr 06/05/24 15:38 06/05/24 15:42 Sod Chlor 0.9% 1000ml Bag IV 06/05/24 16:38 999 mls/hr .Q1H1M ONE Administration Ondansetron HCl 4 mg 06/05/24 14:57 06/05/24 15:04 Ondansetron 4mg/2ml Vial IV 06/05/24 14:58 4 mg ONCE ONE Administration ORDERS Category Date Time Status CBC w/Auto Diff [Complete Blood Count Auto Diff] Stat Lab 06/05/24 14:55 Completed CMP [Comprehensive Metabolic Panel] Stat Lab 06/05/24 14:55 Completed HCV RNA PCR, Quant Stat Lab 06/05/24 14:55 Received HIV Combo Stat Lab 06/05/24 14:55 Completed Hepatitis C Ab Qual. W/ RFX Stat Lab 06/05/24 14:55 Completed Magnesium Stat Lab 06/05/24 14:55 Completed Procalcitonin Stat Lab 06/05/24 14:55 Completed UA [Urinalysis and Microscopic] Stat Lab 06/05/24 14:40 Completed UDS [Drug Screen,Urine] Stat Lab 06/05/24 14:40 Completed Urine Culture Stat Micro 06/05/24 14:40 Received Medical Decision Narrative: In summary patient is a 48-year-old female who presents to the emergency department for evaluation of lightheadedness. Patient is patient is actually slightly hypotensive with a blood pressure 106/65 but a heart rate of 60 with normal sinus rhythm on the bedside monitor breathing 18 times a minute satting at 100% room air upon arrival, afebrile at 97.4. Physical exam is nonfocal and unremarkable including normal breath sounds normal heart sounds no increased work of breathing no adventitious sounds no abdominal tenderness no rebound or guarding or rigidity. [place] Coma Score is 15 patient awake alert and oriented patient has no provokable dizziness tympanic membrane's are normal patient has no acute nuchal rigidity or C-spine tenderness. It is of note that patient had a blood pressure of 85 upon standing but and inappropriately low heart rate of 65. Differential diagnosis includes beta-blockade versus dehydration versus possible occult infection etc. Initial workup will be conducted with hematologic labs urinalysis twelve-lead EKG. Initial interventions include crystalloid bolus Zofran. Initial workup reviewed by me and her hematologic labs are nonactionable although patient has hemoglobin hematocrit of 10.6 and 33.0 they are stable from previous, electrolytes normal GFR creatinine normal procalcitonin 0.075 and her urinalysis shows trace leukocyte esterase no red blood cells 3-5 white cells 5-10 squamous epithelial cells trace bacteria and 1+ trichomoniasis. Upon repeat evaluation patient had significant improvement after crystalloid bolus and her blood pressure is now 135/78 with her heart rate still 60. Given this I instructed the patient to follow-up closely with her PCP and I have referred her to cardiology for blood pressure management as I believe the patient may have too much beta-blockade which she is taking for anxiety not for any cardiac purposes. I had interactive discussion with the patient and her partner regarding her findings of trichomoniasis on her urine specimen and recommended both treatment for her and her partner. Patient and partner verbalized an agreement and understanding. Given this patient is appropriate for discharge with close follow-up with PCP referred to cardiology for evaluation of blood pressure management and a prescription for Flagyl. <Mihai Peerz MD - Last Filed: 06/06/24 14:55> Vital Signs: 06/05/24 14:45 06/05/24 14:49 06/05/24 15:01 Temperature 97.4 F L Temperature Source Oral Pulse Rate 60 60 Pulse Rate [Left Radial] 62 Pulse Rate [Orthostatic Lying Left Radial] Pulse Rate [Orthostatic Sitting Right Radial] Pulse Rate [Orthostatic Standing Right Radial] Respiratory Rate 18 Blood Pressure 106/65 L 101/65 L Blood Pressure [Orthostatic Lying Left Arm] Blood Pressure [Orthostatic Sitting Left Arm] Blood Pressure [Orthostatic Standing Left Arm] Blood Pressure [Right Arm] 109/64 L Blood Pressure Mean Blood Pressure Mean [Right Arm] 79 Blood Pressure Source Blood Pressure Position 02 Sat by Pulse Oximetry 100 97 97 Oxygen Delivery Method Room Air Room Air Room Air 06/05/24 15:15 06/05/24 15:30 06/05/24 15:48 Temperature Temperature Source Pulse Rate 60 57 L 59 L Pulse Rate [Left Radial] Pulse Rate [Orthostatic Lying Left Radial] Pulse Rate [Orthostatic Sitting Right Radial] Pulse Rate [Orthostatic Standing Right Radial] Respiratory Rate Blood Pressure 97/63 L 98/68 L 97/57 L Blood Pressure [Orthostatic Lying Left Arm] Blood Pressure [Orthostatic Sitting Left Arm] Blood Pressure [Orthostatic Standing Left Arm] Blood Pressure [Right Arm] Blood Pressure Mean Blood Pressure Mean [Right Arm] Blood Pressure Source Blood Pressure Position 02 Sat by Pulse Oximetry 99 98 99 Oxygen Delivery Method Room Air Room Air Room Air 06/05/24 16:00 06/05/24 16:15 06/05/24 16:30 Temperature Temperature Source Pulse Rate 52 L 48 L 53 L Pulse Rate [Left Radial] Pulse Rate [Orthostatic Lying Left Radial] Pulse Rate [Orthostatic Sitting Right Radial] Pulse Rate [Orthostatic Standing Right Radial] Respiratory Rate 16 16 Blood Pressure 122/67 113/60 116/65 Blood Pressure [Orthostatic Lying Left Arm] Blood Pressure [Orthostatic Sitting Left Arm] Blood Pressure [Orthostatic Standing Left Arm] Blood Pressure [Right Arm] Blood Pressure Mean 73 82 Blood Pressure Mean [Right Arm] Blood Pressure Source Blood Pressure Position 02 Sat by Pulse Oximetry 97 100 97 Oxygen Delivery Method Room Air 06/05/24 16:46 06/05/24 17:08 06/05/24 17:15 Temperature 98.2 F Temperature Source Oral Pulse Rate 50 L 60 Pulse Rate [Left Radial] Pulse Rate [Orthostatic Lying Left Radial] 57 L Pulse Rate [Orthostatic Sitting Right Radial] 56 L Pulse Rate [Orthostatic Standing Right Radial] 55 L Respiratory Rate 16 Blood Pressure 125/51 L 135/70 Blood Pressure [Orthostatic Lying Left Arm] 140/78 Blood Pressure [Orthostatic Sitting Left Arm] 133/74 Blood Pressure [Orthostatic Standing Left Arm] 138/75 Blood Pressure [Right Arm] Blood Pressure Mean Blood Pressure Mean [Right Arm] Blood Pressure Source Automatic Cuff Blood Pressure Position Sitting 02 Sat by Pulse Oximetry 98 Oxygen Delivery Method Room Air Room Air Lab Data Lab Results 06/05/24 14:40: Urine Color Yellow, Urine Appearance Clear, Urine pH 6.5, Ur Specific [place] 1.015, Urine Protein Negative, Urine Glucose (UA) Negative, Urine Ketones Negative, Urine Blood Negative, Urine Nitrate Negative, Urine Bilirubin Negative, Urine Urobilinogen 0.2, Ur Leukocyte Esterase Trace A, Urine RBC None, Urine WBC 3-5, Ur Squamous Epith Cells 5-10, Urine Bacteria Trace, Urine Trichomonas 1+, Urine Opiates Screen Negative, Urine Methadone Screen Negative, Ur Barbituates Screen Negative, Ur Phencyclidine Scrn Negative, Ur Amphetamines Screen Negative, U Benzodiazepines Scrn Positive H, Urine Cocaine Screen Negative, U Marijuana (THC) Screen Negative 06/05/24 14:55: WBC 7.3, RBC 3.60 L, Hgb 10.6 L, Hct 33.0 L, MCV 91.7, MCH 29.4, MCHC 32.1, RDW 12.9, Plt Count 242, MPV 9.4, Neut % (Auto) 47.7, Lymph % (Auto) 37.0, [place] % (Auto) 7.7, Eos % (Auto) 6.4, Baso % (Auto) 0.8, Neut # (Auto) 3.5, Lymph # (Auto) 2.7, [place] # (Auto) 0.6, Eos # (Auto) 0.5 H, Baso # (Auto) 0.1, Sodium 133 L, Potassium 4.5, Chloride 101, Carbon Dioxide 25, Anion Gap 11.5, BUN 17, Creatinine 0.90, Estimated Creat Clear 120, Estimated GFR 67, Est GFR ( Amer) 81, Glucose 145 H, Calcium 9.3, Magnesium 1.8, Total Bilirubin 0.2, AST 59 H, ALT 60, Alkaline Phosphatase 87, Total Protein 6.5, Albumin 4.1, Globulin 2.4, Albumin/Globulin Ratio 1.7, Procalcitonin 0.075, HCV Ab [place] w/Rflx PCR Qn Reactive, HIV Ag/Ab Combo Qual Negative Orders (Tests/Meds): ED MEDICATIONS Discontinued Medications Generic Name Dose Route Start Last Admin Trade Name Freq PRN Reason Stop Dose Admin Acetaminophen 1,000 mg 06/05/24 14:57 06/05/24 15:04 Acetaminophen 500mg Tab PO 06/05/24 14:58 1,000 mg ONCE ONE Administration Sodium Chloride 1,000 mls @ 999 mls/hr 06/05/24 15:38 06/05/24 15:42 Sod Chlor 0.9% 1000ml Bag IV 06/05/24 16:38 999 mls/hr .Q1H1M ONE Administration Ondansetron HCl 4 mg 06/05/24 14:57 06/05/24 15:04 Ondansetron 4mg/2ml Vial IV 06/05/24 14:58 4 mg ONCE ONE Administration ORDERS Category Date Time Status CBC w/Auto Diff [Complete Blood Count Auto Diff] Stat Lab 06/05/24 14:55 Completed CMP [Comprehensive Metabolic Panel] Stat Lab 06/05/24 14:55 Completed HCV RNA PCR, Quant Stat Lab 06/05/24 14:55 Received HIV Combo Stat Lab 06/05/24 14:55 Completed Hepatitis C Ab Qual. W/ RFX Stat Lab 06/05/24 14:55 Completed Magnesium Stat Lab 06/05/24 14:55 Completed Procalcitonin Stat Lab 06/05/24 14:55 Completed UA [Urinalysis and Microscopic] Stat Lab 06/05/24 14:40 Completed UDS [Drug Screen,Urine] Stat Lab 06/05/24 14:40 Completed Urine Culture Stat Micro 06/05/24 14:40 Received Medical Decision Narrative: In summary patient is a 48-year-old female who presents to the emergency department for evaluation of lightheadedness. Patient is patient is actually slightly hypotensive with a blood pressure 106/65 but a heart rate of 60 with normal sinus rhythm on the bedside monitor breathing 18 times a minute satting at 100% room air upon arrival, afebrile at 97.4. Physical exam is nonfocal and unremarkable including normal breath sounds normal heart sounds no increased work of breathing no adventitious sounds no abdominal tenderness no rebound or guarding or rigidity. [place] Coma Score is 15 patient awake alert and oriented patient has no provokable dizziness tympanic membrane's are normal patient has no acute nuchal rigidity or C-spine tenderness. It is of note that patient had a blood pressure of 85 upon standing but and inappropriately low heart rate of 65. Differential diagnosis includes beta-blockade versus dehydration versus possible occult infection etc. Initial workup will be conducted with hematologic labs urinalysis twelve-lead EKG. Initial interventions include crystalloid bolus Zofran. Initial workup reviewed by me and her hematologic labs are nonactionable although patient has hemoglobin hematocrit of 10.6 and 33.0 they are stable from previous, electrolytes normal GFR creatinine normal procalcitonin 0.075 and her urinalysis shows trace leukocyte esterase no red blood cells 3-5 white cells 5-10 squamous epithelial cells trace bacteria and 1+ trichomoniasis. Upon repeat evaluation patient had significant improvement after crystalloid bolus and her blood pressure is now 135/78 with her heart rate still 60. Given this I instructed the patient to follow-up closely with her PCP and I have referred her to cardiology for blood pressure management as I believe the patient may have too much beta-blockade which she is taking for anxiety not for any cardiac purposes. I had interactive discussion with the patient and her partner regarding her findings of trichomoniasis on her urine specimen and recommended both treatment for her and her partner. Patient and partner verbalized an agreement and understanding. Given this patient is appropriate for discharge with close follow-up with PCP referred to cardiology for evaluation of blood pressure management and a prescription for Flagyl. I was consulted by the ELIAS, and we discussed the complexity of the problems being addressed. I approve the treatment and management plan for this patient's care in the emergency department, thus performing a substantive portion of the medical decision making. Mihai Perez MD Critical Care <PEG Harrison - Last Filed: 06/05/24 23:10> Critical Care Time Critical Care Time: No
[2024-06-05] MEDS: ONDANSETRON 4MG/2ML VIAL 4 MG IV (15:04)
[2024-06-05] MEDS: ACETAMINOPHEN 500MG TAB 1000 MG PO (15:04)
[2024-06-05 15:08] LABS: Basophils # 0.1 K/mm3 (0-0.2); Basophils % 0.8 % (0.1-2.0); Eosinophils # 0.5 K/mm3 (0.0-0.4); Eosinophils % 6.4 % (0.1-12.0); Hemoglobin 10.6 g/dL (12.2-16.2); Lymphocytes # 2.7 K/mm3 (0.7-4.5); Mean Corpuscular HGB Conc 32.1 g/dL (31.8-35.4); Mean Corpuscular Hemoglobin 29.4 pg (27.0-31.2); Mean Corpuscular Volume 91.7 fl (81-99); Mean Platelet Volume 9.4 fl (7.4-10.4); Monocytes # 0.6 K/mm3 (0.1-1.0); Monocytes % 7.7 % (1.7-9.3); Neutrophils # 3.5 K/mm3 (1.8-7.8); Neutrophils % 47.7 % (37.0-80.0); Platelet Count 242 K/mm3 (142-424); Red Cell Distribution Width 12.9 % (11.5-17.5); White Blood Count 7.3 K/mm3 (4.8-10.8)
[2024-06-05 15:08] LABS: Microscopic, Urine URINE MICROSCOPIC (MICROSCOPIC)
[2024-06-05] MEDS: 0.9 % SODIUM CHLORIDE 1000ML 1,000 ML 999 ML IV (15:42)
[2024-06-05 15:47] LABS: Appearance,Urine Clear (Clear); Bilirubin,Urine Negative (Negative); Blood, Urine Negative (Negative); Color,Urine Yellow (Yellow); Glucose,Urine (UA) Negative (Negative); Ketones,Urine Negative (Negative); Leukocyte Esterase,Urine Trace (Negative); Nitrate,Urine Negative (Negative); PH,Urine 6.5 (5.0-8.5); Protein,Urine Negative (Negative); Specific Gravity, Urine 1.015 (1.005-1.030); Urobilinogen,Urine 0.2 EU/dl (0.2)
[2024-06-05 15:49] LABS: Bacteria,Urine Trace /lpf; Trichomonas,Urine 1+ /lpf
[2024-06-05 16:19] LABS: Alanine Aminotransferase 60 U/L (12-78); Albumin Level 4.1 g/dl (3.5-5.0); Albumin/Globulin Ratio 1.7 (1.1-1.8); Alkaline Phosphatase 87 U/L (38-126); Anion Gap 11.5 mEq/L (5-15); Aspartate Amino Transferase 59 U/L (14-36); Bilirubin,Total 0.2 mg/dl (0.2-1.3); Blood Urea Nitrogen 17 mg/dl (7-17); Calcium 9.3 mg/dl (8.4-10.2); Carbon Dioxide 25 mmol/L (22.0-30.0); Chloride 101 mmol/L (98-107); Creatinine Clearance Estimated 120 mL/min (50-200); Estimated Glomerular Filt Rate 67 ml/min (>60); GFR (African American) 81 ML/MIN (>60); Globulin 2.4 g/dL (1.3-3.2); Glucose 145 mg/dl (74-100); Potassium 4.5 mmoL/L (3.5-5.1); Sodium 133 mmol/L (136-145); Total Protein,Serum 6.5 g/dl (6.3-8.2)
[2024-06-05 16:43] LABS: HIV Combo NEGATIVE (Negative)
[2024-06-05 16:51] LABS: Hepatitis C Ab Qual. W/ RFX REACTIVE (Negative)
[2024-06-05 18:06] LABS: Magnesium 1.8 mg/dl (1.6-2.3)
[2024-06-05 19:18] LABS: Amphetamine/Metha Screen,Urine Negative ng/ml (<1000); Benzodiazepines Screen,Urine Positive ng/ml (<200)
[2024-06-05 19:19] LABS: Cocaine Screen,Urine Negative ng/ml (<300)
[2024-06-05 19:20] LABS: Cannabinoid Screen,Urine Negative ng/ml (<50); Methadone Screen,Urine Negative ng/ml (<300)
[2024-06-05 19:22] LABS: Opiate Screen,Urine Negative ng/ml (<300); Phencyclidine Screen,Urine Negative ng/ml (<25)
[2024-06-05 19:29] LABS: Barbiturates Screen,Urine Negative ng/ml (<200)
[2024-06-05 19:33] LABS: Procalcitonin 0.075 ng/mL (0.0-2.0)
== END 2024-06-05 17:17 | disposition home or self-care (01) ==
PROVIDERS: Physician Assistant; Emergency Provider Student in an Organized Health Care Education/Training Program; PCP Internal Medicine
DX: N39.0 Urinary tract infection, site not specified (principal); I95.1 Orthostatic hypotension; R42 Dizziness and giddiness; R22.43 Localized swelling, mass and lump, lower limb, bilateral; I95.9 Hypotension, unspecified
CPT/HCPCS: 80053; 80307; 81001; 83735; 84145; 85025; 86803; 87086; 87389; 87522; 99283; J2405; J7030

== ENCOUNTER 2024-06-13 13:32 | Day surgery (SDC) | payer MEDICAID, SELFPAY ==
[2024-06-13 13:35] VITALS: BP 127/78; PULSE 61; RESP 16; TEMP 36.4; O2SAT 98; BMI 29.1
[2024-06-13] MEDS: methylPREDNISolone ACETATE 80MG/ML VIAL 80 MG (13:43)
[2024-06-13 13:44] VITALS: BP 146/79; PULSE 61; RESP 18; O2SAT 97
[2024-06-13 13:48] VITALS: BP 146/79; PULSE 61; RESP 18; O2SAT 97
--- NOTE | 2024-06-13 13:53 | P.PCN_ITS ---
Procedure Date: 06/13/24 Time: 13:15 Anesthesiologist:: Parker Anand CRNA Complications:: None Pre-procedure Diagnosis:: Degenerative disc lumbar spine multilevels. Lumbar radiculopathy. Lumbar disc bulge L4-5, L5-S1. Lumbar postlaminectomy syndrome. Post-procedure Diagnosis:: Same. Indications for Procedure:: Patient is a very pleasant 49-year-old female comes our clinic today for lumbar epidural steroid injection at the L4-5 level. Patient describes low lumbar back pain as constant, dull, aching. Patient also reports bilateral leg radicular symptoms at times. She rates her pain 7/10. Procedure Details:: Procedure: Lumbar epidural steroid injection under fluoroscopy Informed consent was obtained and the risks and benefits of the procedure were explained to the patient. The patient was taken to the procedure room and nonin vasive monitors placed, including noninvasive blood pressure cuff and pulse oximeter. The back was viewed using C-arm Fluoroscopy and prepped using Chloraprep as a cleansing solution and the L4-L5 interspace was palpated. Skin and subcutaneous tissues were anesthetized using lidocaine 1.5% and a 25-gauge needle. After this, an 18-gauge Touhy epidural needle was placed into the L4-L5 interspace and advanced using fluoroscopic guidance and loss of resistance to air until the epidural space was encountered. After confirmation of needle placement in the epidural space, with dye, a solution containing normal saline, 3 mL and Depo-Medrol 80 mg were incrementally injected into the lumbar epidural space. The patient tolerated the procedure well with no complications. The patient was observed in the Pain Clinic and then discharged home neurologically intact. Plan and Disposition:: Patient was discharged without incident.
[2024-06-13 13:54] VITALS: BP 147/81; PULSE 64; RESP 16; O2SAT 100
== END 2024-06-13 13:54 | disposition home or self-care (01) ==
PROVIDERS: PCP Internal Medicine; Visit Provider Nurse Anesthetist, Certified Registered
DX: M51.16 Intervertebral disc disorders with radiculopathy, lumbar region (principal); M96.1 Postlaminectomy syndrome, not elsewhere classified
CPT/HCPCS: 62323; J1010

== ENCOUNTER 2024-06-29 14:24 | Outpatient (POV) | payer MEDICAID, SELFPAY ==
[2024-06-29 14:45] VITALS: BP 122/80; PULSE 71; RESP 16; O2SAT 97; BMI 27.1
--- NOTE | 2024-06-29 15:01 | A.OFFVIS_ITS ---
[facility] Disclaimer: The information contained in this section may have been updated after the patient was seen, as this information can be updated by other users. 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 Hypertension Surgical History History of lumbar surgery History of right knee surgery Family History Other Lung cancer Social History Smoking Status: Current every day smoker tobacco type: e-cigarettes alcohol intake: current alcohol intake frequency: 3 or more drinks per day substance use type: former substance user and methamphetamine current occupational status: other Travel in the last 8 weeks: None household members: other housing: house current occupational exposures/hazards: No caffeine: Yes PM Subjective & Objective Subjective Subjective:: Patient is a pleasant 49-year-old female who presents today for follow-up of her lumbar epidural steroid injection on 06/13/2024. Today she rates her pain a 7 out of 10. She denies any new trauma or injury. She does state that she had 75% improvement following these injection and feels like it really did work for 2 full weeks. She states that she is not having the leg issues however her pain today is all across her low back primarily on the left side. Patient does state this pain is more related to certain activities such as bending and twisting. Patient states it is constant and is interfering with her ability perform activities of daily living such as cooking and cleaning. Patient does states she is interested in additional injection therapy. 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 Patient is managed with tizanidine 4 mg 4 times a day from our office and does get Percocet gabapentin from her PCP. Her Tyree has been reviewed and is appropriate. Review of Systems: General: No recent weight changes, no fever, no sleep disturbances Respiratory: No cough, no shortness of air, no recurring pulmonary infections Cardiovascular/peripheral vascular: No chest pain, no palpitations, no edema, no shortness of breath Gastrointestinal: No new onset incontinence, normal bowel movements reported Genitourinary: No new onset incontinence Musculoskeletal: Low back pain Psychiatric: [Normal mood/affect] Neurological: [Denies weakness in extremities], [denies balance issues] Pain at rest (0-10 scale): 7 Objective Objective:: Physical Exam: General: Alert and oriented x3, no acute distress, pleasant and cooperative Lungs: Respirations even and unlabored, symmetrical chest expansion Eyes: PERRL Musculoskeletal: Flexion and extension of lumbar [spine] somewhat guarded secondary to pain, [antalgic gait noted] positive Kemps test Neurological: Speech clear, no gross sensory deficit Has patient had previous pain injection?: Yes Percent improvement in pain since last injection: 75% Conservative treatment options previously tried: Home exercise plan Length of treatment: Longer than 12 weeks Meds Home Medications and Allergies Home Medications ?Medication ?Instructions ?Recorded ?Confirmed ?Type lisinopril 10 mg tablet 10 mg PO DAILY 90 days #90 tabs 08/12/23 06/29/24 Rx loratadine 10 mg tablet See Rx Instructions .Route 08/12/23 06/29/24 Rx .COMPLEX #90 tabs naloxone 4 mg/actuation nasal spray 4 mg intranasal Q3M PRN opioid 11/16/23 06/29/24 Rx overdose #2 ea omega-3 fatty acids-fish oil 360 1 cap PO DAILY #30 caps 01/31/24 06/29/24 Rx mg-1,200 mg capsule fluoxetine 60 mg tablet 90 mg (1.5 x 60 mg) PO DAILY 90 02/02/24 06/29/24 Rx days #135 tabs fluticasone propionate 50 See Rx Instructions .Route 03/09/24 06/29/24 Rx mcg/actuation nasal .COMPLEX #16 grams spray,suspension tizanidine 4 mg tablet 4 mg PO TID MUSCLES 90 days #270 04/20/24 06/29/24 Rx tabs oxycodone-acetaminophen 10 mg-325 1 tab PO QID PRN pain #120 tabs 04/27/2406/29 Rx mg tablet oxycodone-acetaminophen 10 mg-325 1 tab PO QID PRN pain 30 days #120 04/27/24 06/29/24 Rx mg tablet tabs gabapentin 800 mg tablet See Rx Instructions .Route 05/22/24 06/29/24 Rx .COMPLEX #90 tabs ezetimibe 10 mg tablet See Rx Instructions .Route 06/06/24 06/29/24 Rx .COMPLEX #90 tabs omeprazole 20 mg capsule,delayed See Rx Instructions .Route 06/06/24 06/29/24 Rx release .COMPLEX #90 caps amitriptyline 50 mg tablet See Rx Instructions .Route 06/07/24 06/29/24 Rx .COMPLEX #30 tabs oxcarbazepine 150 mg tablet 150 mg PO BID #60 tabs 06/12/24 06/29/24 Rx (Trileptal) diazepam 5 mg tablet 5 mg PO DAILY PRN anxiety #30 tabs 06/19/24 06/29/24 Rx aripiprazole 2 mg tablet (Abilify) 2 mg PO DAILY #30 tabs 06/28/24 06/29/24 Rx New Prescriptions to Start Prescriptions: Allergies Allergy/AdvReac Type Severity Reaction Status Date / Time Sulfa (Sulfonamide Allergy Severe Anaphylaxis Verified 06/28/24 14:49 Antibiotics) lamotrigine Allergy Mild Hives Verified 06/28/24 14:49 propranolol Allergy Verified 06/28/24 14:49 Assessment and Plan *Assessment and plan (1) Lumbar spondylosis: Status: Acute Category: Medical Code(s): M47.816 - Spondylosis without myelopathy or radiculopathy, lumbar region (2) Chronic low back pain: Status: Acute Qualifiers: Back pain laterality: bilateral Sciatica presence: with sciatica Sciatica laterality: sciatica of right side Qualified Code(s): M54.41 - Lumbago with sciatica, right side; G89.29 - Other chronic pain Category: Medical Code(s): M54.50 - Low back pain, unspecified; G89.29 - Other chronic pain Plan Patient is experiencing significant pain in her low back that is worse with bending, twisting or lifting. Patient did have limited range of motion of her lumbar spine with a positive Kemps test during today's visit. I did discuss with the patient that I do believe she would benefit from a lumbar medial branch block. Risk and benefits were discussed with the patient and she would like to proceed forward with this plan of care. Patient has tried and failed conservative therapy including oral medications, heat and ice, topicals, at home stretching exercise for longer than 12 weeks that was physician guided. Patient has tried and failed physical therapy in the past. Patient has had chronic back pain for longer than a year. Patient has been experiencing chronic low back pain for years. Patient was counseled that if she does get significant relief with her first lumbar medial branch block that we will plan on repeating it with the plan to progress forward to a lumbar RFA at a later date. Patient agrees with this plan of care. Patient will be scheduled for her first diagnostic lumbar medial branch block bilaterally L4-L5 and L5-S1 under fluoroscopy. FINDINGS: There is no fracture present. There is no malalignment. There is disc space narrowing at multiple levels with anterior osteophytes and sclerosis predominantly at the L4-5 and L5-S1 levels. IMPRESSION: No acute process. Degenerative change as described predominantly at the L4-5 and L5-S1 levels. Reviewed, Interpreted and Dictated by Mikey Rivera MD Transcribed by Salud Esqueda Authenticated and [facility] Patient has been instructed to contact the clinic with any concerns before the next appointment. Dr. Lee has reviewed this note and agrees with this plan of care. This note was dictated using voice recognition software and make contain errors or omissions. All injections are used with Lidocaine, Bupivacaine and Depo Medrol. Occasionally urine drug screen is needed to verify patient's compliance with our office pain contract. This is ordered based off specific treatments related to chronic pain with the potential to abuse certain medications.
== END 2024-06-29 23:59 | disposition home or self-care (01) ==
LOC: SC.PAIN 14:25
PROVIDERS: PCP Internal Medicine; Visit Provider Nurse Practitioner Family
DX: M47.816 Spondylosis without myelopathy or radiculopathy, lumbar region (principal); M54.41 Lumbago with sciatica, right side; G89.29 Other chronic pain; F17.290 Nicotine dependence, other tobacco product, uncomplicated; Z73.89 Other problems related to life management difficulty; Z79.899 Other long term (current) drug therapy
CPT/HCPCS: 99212; G0463

== ENCOUNTER 2024-07-11 11:07 | Outpatient (CLI) | payer MEDICAID, SELFPAY ==
--- NOTE | 2024-07-11 | CA_ITS ---
APPROVED REPORT Exam: Pharmacologic Technologist: Yuko Foote Ht: 6 ft 0 in Wt: 208 lbs BSA: 2.17 m2 HR: 69 bpm BP: 187/97 mmHg Stress Test Details Test: Lexiscan HR Resting HR: 69 bpm Max Heart Rate (APMHR): 172 bpm Max HR Achieved: 87 bpm Target HR (85% APMHR): 146 bpm % of APMHR: 51 Recovery HR: 83 bpm BP Resting BP: 187.0/97.0 mmHg Max BP: 192.0/100.0 mmHg Recovery BP: 192.0/100.0 mmHg ECG Resting ECG: Normal sinus rhythm Stress ECG Conclusion Symptoms: headache, chest tightness, dyspena Arrhythmias/Ectopy: - ST-T Changes: Less than [address] depression Conclusion: EKG unremarkable due to Lexiscan infusion. Electronically signed by : Pati Blackmon MD 07/11/2024 15:10:49
--- NOTE | 2024-07-11 11:30 | NM_ITS ---
APPROVED REPORT Exam: Nuclear Stress Test Indication: Chest pain, SOB, Palpitations, Fatigue, Edema, HTN, High cholesterol, Tobacco use Patient Location: Outpatient Stress Tech: Yuko Foote [place] Tech:Madhuri Gurrola, ARRT, RT (R)(N) Ht: 6 ft 0 in Wt: 220 lbs Bra Size: 36B HR: 68 bpm BP: 187/97 mmHg BSA: 2.22 m2 TID: 1.10 History: Chest pain, SOB, Palpitations, Fatigue, Edema, HTN, High cholesterol, Tobacco use Procedure: Patient received 0.4 mg of intravenous Lexiscan, resting heart rate 68 bpm, resting blood pressure 187/97 mmHg, with Lexiscan maximum heart rate achieved was 88 bpm which is % of the maximum predicted heart rate and blood pressure was 192/100 mmHg. With Lexiscan, patient denied any complaint of chest pain. Cardiac Stress and Resting SPECT Images: Cardiac Stress and Resting SPECT images were obtained using technetium 99m Myoview 32.2 mCi stress and 10.88 mCi at rest. Resting and stress imaging in supine and prone positions demonstrate no evidence of fixed or reversible perfusion defects. Gated imaging demonstrates normal global and regional LV systolic function. LVEF is calculated at 69%. Conclusion: No evidence of fixed or reversible perfusion defects. Gated imaging demonstrates normal global and regional LV systolic function. LVEF is calculated at 69%. Electronically signed by : Pati Blackmon MD 07/11/2024 14:57:02
--- NOTE | 2024-07-11 12:55 | CA_ITS ---
APPROVED REPORT EXAM: Comprehensive 2D, Doppler, and color-flow Echocardiogram Hand Glass Cutter: Autumn Arellano RT(R) Ht: 6 ft 0 in Wt: 208lbs BSA: 2.17 BP: 143/82 mmHg Indications: edema, abn EKG, smoker, HTN, SOB, hyperlipidemia Echo Enhancing Agent Indication: Rule out Shunt Agent(s) / Amount(s) Used: Agitated Saline 20 cc 2D Dimensions LVEF (Smis's) 66.30 % F: 54 - 74 LV Volume 115.80 mL F: 46 - 106 LV Volume Index 53.4 mL/m2 F: 29 - 61 LA Volume 42.60 mL LA Volume Index 19.63 mL/m2 (M/F) 16-34 EF AP4 75.30 % EF AP2 55.8 % EF BP 66.3 % GL Strain -20.0 % M-Mode Dimensions RVDd 3.08 cm (0.9-2.6) LA Diam 3.59 cm (1.9-4.0) LVDd 4.97 cm (3.5-5.7) LVDs 3.83 cm (3.5-5.7) IVSd 0.46 cm (0.6-1.1) PWd 0.86 cm (0.6-1.1) EF (Teich) 45.90% FS 22.90% EDV (Teich) 116.60 mL ESV (Teich) 63.10 mL LV Diastology E Decel Time 160 (160-240 msec) E/A Ratio 1.2 Mitral Valve MV E Max Luis. 87.0 (40-130 cm/s) MV A Velocity 74.0 (40-130 cm/s) E/A Ratio 1.17 MV PHT 47.0 ms Left Ventricle The left ventricle is normal size. The left ventricular systolic function is normal. The left ventricular ejection fraction is within the normal range. There is normal left ventricular wall thickness. There is normal LV segmental wall motion. The left ventricular diastolic function is normal. LVEF is 60%. Right Ventricle The right ventricle is normal size. The right ventricular systolic function is normal. Atria The left atrium size is normal. The right atrium size is normal. There is no Doppler evidence of interatrial shunt. Agitated saline administration demonstrates no evidence of interatrial shunt. Aortic Valve The aortic valve opens well. There is no aortic valvular stenosis. No aortic regurgitation is present. Mitral Valve The mitral valve is normal in structure. No evidence of mitral valve stenosis. Trace mitral regurgitation. Tricuspid Valve Tricuspid valve is grossly normal in structure and function. Trace tricuspid regurgitation. There is insufficient TR jet to estimate RVSP. Pulmonic Valve The pulmonary valve is normal in structure. Trace pulmonic regurgitation. Great Vessels The aortic root is normal in size. IVC is normal in size and collapses >50% with inspiration. Pericardium There is no pericardial effusion. Other Information Study Quality: Adequate Conclusion Normal biventricular systolic function. No significant valvular stenosis or regurgitation. There is no Doppler evidence of interatrial shunt. Agitated saline administration demonstrates no evidence of interatrial shunt. Electronically signed by : Pati Blackmon MD 07/15/2024 00:44:46
[2024-07-11] MEDS: REGADENOSON 0.4MG/5ML SYRINGE 0.4 MG IV (12:56)
[2024-07-11] MEDS: SODIUM CHLORIDE 0.9% 10ML SYR (RAD ONLY) 10 ML IV ×2 (12:56)
[2024-07-11] MEDS: ISOTOPE MYOVIEW (PER STUDY) 1 DOSE IV (12:56)
--- NOTE | 2024-07-11 14:45 | MM_ITS ---
PROCEDURE INFORMATION: Exam: MG Bilateral Screening 3D Mammography Exam date and time: 07/11/2024 2:45 PM Age: 49 years old Clinical indication: Screening examination TECHNIQUE: Imaging protocol: Bilateral Screening tomosynthesis and 2D mammography including computer-aided detection (CAD) when performed. COMPARISON: 1. MG MM DIG SCREENING MAMM BI W/CAD 04/24/2021 3:15 PM 2. MG MM CLIP PLACEMENT RT 04/03/2020 2:17 PM FINDINGS: MAMMOGRAPHY: Breast composition: The breasts are heterogeneously dense, which may obscure small masses. Mass: No suspicious masses. Architectural distortion: None. Calcifications: No suspicious calcifications. Asymmetric density: None. Skin thickening: None. Axillary adenopathy: None. IMPRESSION: No mammographic evidence of malignancy. Annual screening is recommended unless otherwise clinically indicated. ASSESSMENT: BI-RADS Category 1: Negative.
== END 2024-07-11 23:59 | disposition home or self-care (01) ==
LOC: RAD 11:08
PROVIDERS: PCP Internal Medicine; Visit Provider Nurse Practitioner Family
DX: R94.31 Abnormal electrocardiogram [ECG] [EKG] (principal); R60.0 Localized edema; Z12.31 Encounter for screening mammogram for malignant neoplasm of breast; R06.09 Other forms of dyspnea
CPT/HCPCS: 77063; 77067; 78452; 93017; 93018; 93306; A9502; J2785

== ENCOUNTER 2024-08-07 13:48 | Outpatient (RCR) | payer MEDICAID, SELFPAY ==
--- NOTE | 2024-08-07 14:48 | HMH.PTOPEV ---
PT Outpatient Evaluation Rehab PT Outpatient Evaluation Start: 08/07/24 13:54 Freq: Status: Active Protocol: Document 08/07/24 14:20 KIKO (Rec: 08/07/24 14:47 KIKO [id number]) E-signed By Amari Hull, PT Outpatient Therapy Subjective History Subjective History Pt is a 49 yof who is referred to [facility] outpatient PT with complaints of chronic Low back pain. She reports that her back pain began in 2019 and has progressively worsened since then. She reports that she has had two surgeries on her back but is unable to report what surgeries she has had. She reports that she has occasional numbness down her lateral thighs but not constantly. She reports that she received injections which helped, but she was denied this time due to not having Physical Therapy. Pt reports difficulty with driving very short distances due to increased back and leg pain. 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 Chief Complaint Pain,Stiff,Weakness Symptom Type Ache Symptoms Relieved By Heat,Ice,Prescription Meds Symptoms Aggravated By Sitting,Standing,Bending/ Stooping,Physical Activity, Twisting,Walking,Lifting Prior Functional Limitations None Current Functional Limitations Lifting,Housework,Driving, Standing,Sitting,Squatting, Recreation Activity,Walking, Stairs Symptom Description Constant but Variable,Activity Dependent Level of pain today (0-10) 7 Pain scale - at its best (0-10) 3 Pain scale - at its worst (0-10) 10 Lumbopelvic Eval Posture Thoracic Spine Posture Standing Position Neutral Lumbar Spine Posture Standing Position Flattened,Decreased Lordosis Assistive device Assistive Devices None / NA Palapation tenderness bilateral lumbar spinal tenderness Yes: 3/4 TTP to L3-L5 paraspinal tenderness Yes: 3/4 TTP to L3-L5 b/l buttock tenderness No tenderness over symphysis pubis No Accessory Movement L3 bilateral L4 bilateral L5 bilateral Range of Motion Lumbar Spine Active Flexion Range of 15 Motion (degrees) Lumbar Spine Active Extension Range of -5 Motion (degrees) Left Lumbar Spine Lateral Flexion Active 6 Range of Motion (degrees) Right Lumbar Spine Lateral Flexion 4 Active Range of Motion (degrees) Lumbar Spine ROM Limitations Pain Manual Muscle Test Right Knee Extension Strength Grade 4 Good Knee Flexion Strength Grade 4 Good Hip Flexion Strength Grade 4 Good Hip Abduction Strength Grade 4- Good- Hip Adduction Strength Grade 4 Good Ankle Dorsiflexion Strength Grade 5 Normal Gastronemius/Soleus Strength Grade 5 Normal Left Knee Extension Strength Grade 3+ Fair+ Knee Flexion Strength Grade 3+ Fair+ Hip Flexion Strength Grade 2 Poor Hip Abduction Strength Grade 2 Poor Hip Adduction Strength Grade 2 Poor Hip Extension Strength Grade 2 Poor Ankle Dorsiflexion Strength Grade 5 Normal Gastronemius/Soleus Strength Grade 5 Normal DTR Rt Patellar 1+ Lt Patellar 1+ Rt Gastroc/Soleus 1+ Lt Gastroc/Soleus 1+ Altered Sensation Bilateral Comment Intact to LT globally Special Tests Lumbar Spine Screen Positive Forward Bending Test- Standing Positive Left,Positive Right Hip Scouring (Quadrant) Test Positive Left,Positive Right Hip Parker (JEROME) Test Positive Left,Positive Right Sciatic Nerve Tension Test Positive Left,Positive Right Crossed Straight Leg Raise Test Positive Left,Positive Right Hip Nicole's Test Negative Right Sacroiliac Joint Compression Test Negative Left,Negative Right Sacroiliac Joint Distraction Test Negative Left,Negative Right Oswestry Index Section 1 Pain Intensity The pain comes and goes and is severe Section 2 Personal Care (Washing,Dresing) increase the pain and I find it necessary to change my way of doing it Section 3 Lifting Pain prevents me from lifting weights off the floor Section 4 Walking I cannot walk more than one mile wihtout increasing pain Section 5 Sitting Pain prevents me from sitting for more than one hour Section 6 Standing I cannot stand more than 1 hour without increasing pain Section 7 Sleeping Because of my pain, my normal night's sleep is less than 6 hours sleep Section 8 Social Life Pain has restricted my social life and I do not go out often Section 9 Traveling I get extra pain while traveling which compels me to seek alternate fo Section 10 Changing Degreee of Pain My pain is neither getting better or worse Score and Risk Level Oswestry Sc 26 Oswestry Risk Level Severe Disability Outpatient Therapy Assessment Impairments Problems/Impairmments Palpation Tenderness,Impaired Range of Motion,Impaired Strength,Impaired Walking, Impaired Standing,Impaired Sitting,Impaired Household Care,Impaired Stair Climbing, Impaired Work Activities, Impaired Balance,Subjective C/ O Pain Prognosis Rehab Potential Fair Comment w HEP Compliance Clinical Impression Consistent with Diagnosis Yes Consistent with LBP with radiating pain Short Term Goals Number of Weeks 4 Decreased Palpation Tenderness Yes: 1-2/ to TTP assessment above Increase Range of Motion Yes: improve lumbar flexion to 30, extension to 5 Increase Strength Yes: B LEs to 3+ globally Increase Ability to Stand Yes: 20 minutes without increasing pain Increase Ability to Sit Yes: 20 minutes without increasing pain Improve Oswestry Score Yes: to <20 Decrease Subjective C/O Pain Yes: 08/05 with above assessment Patient to be Ind w/ HEP Yes Senior Care Goals Number of Weeks 8 Decreased Palpation Tenderness Yes: 0-/ to TTP assessment above Increase Range of Motion Yes: Improve lumbar flexion to 50, extension to 10 Increase Strength Yes: 4-4+/5 to B LEs Increase Ability to Stand Yes: 1 hour without increasing pain Increase Ability to Sit Yes: 1 hour without increasing pain Improve Ability For Household Care Yes: Able to cook/clean house without increasing symptoms Improve Tolerance to Work Activities Yes: Normal daily job duties without increasing pain/ symptoms Decrease Subjective C/O Pain Yes: 2-06/05 with above assessment Patient to be Ind w/ Advanced HEP Yes Outpatient Therapy Plan of Care Treatment Plan May Include Therapeutic Exercise Including Home Yes Exercise Program Manual Therapy Techniques Yes Neuromuscular Re-education Yes Therapeutic Activities to Return to Yes Previous Functional/Work Level Gait Training Yes ADL/Self Care Education Yes Dry Needling Yes Thermal Modalities Yes Electrical Stimulation Yes Ultrasound/Phonophoresis Yes Iontophoresis Yes Manual Lymphatic Drainage Yes Eval/Re-Eval Yes Frequency Times per week 2 Duration Number of Weeks 8 Addendums This patient is a candidate for social No or vocational rehab? Patient/Guardian verbally acknowledges Yes understanding of treatment program and consents to further treatment? Patient/Guardian verbally acknowledges Yes understanding of diagnosis, prognosis and goals for treatment? Eval Complexity PT Charges 72007 - High Complexity Shoulder/Elbow Eval Shoulder Objective Measurements Elbow Objective Measurements PHYSICIAN CERTIFICATION: I certify the specified therapy services for Delaney Orellana are required, authorized, and reviewed every 30 days.
== END 2024-08-11 23:59 | disposition home or self-care (01) ==
LOC: PT 13:48
PROVIDERS: PCP Family Medicine; Visit Provider Nurse Practitioner Family
DX: M47.816 Spondylosis without myelopathy or radiculopathy, lumbar region (principal)
CPT/HCPCS: 97163

== ENCOUNTER 2024-09-04 14:19 | Outpatient (POV) | payer MEDICAID, SELFPAY ==
--- OUTSIDE RECORDS SUMMARY | 2024-09-04 14:22 | XMS_ITS | Clinical Summary ---
Author Organization Healthcare Address [address] [place] [address] Care Team Providers Care Audit Associate Name Role Phone Unavailable Primary Care Provider Unavailabl e Family History Medical History Relation Name Comments Diabetes type II Brother Multiple sclerosis Father COPD Mother Hyperlipidemia Mother Hypertension Mother Hypothyroidism Mother Lung cancer Mother Relation Name Status Comments Brother Father Mother Social History Tobacco Use Types Packs/Day Years Used Date Smoking Tobacco: Former Comments Unknown Sex and Gender Information Value Date Recorded Sex Assigned at Not on file Legal Sex Female 8:24 PM EDT Gender Identity Not on file Sexual Orientation Not on file Last Filed Vital Signs Vital Sign Reading Time Taken Comments Blood Pressure 116/78 02/09/2020 2:56 PM EST Pulse 72 02/09/2020 2:56 PM EST Temperature 36.9 C (98.4 F) 02/09/2020 2:56 PM EST Respiratory Rate 14 02/09/2020 2:56 PM EST Oxygen Saturation - - Inhaled Oxygen Concentration - - Weight 86.9 kg (191 lb 9.3 oz) 02/09/2020 2:56 P M EST Height 182.9 cm (6') 02/09/2020 2:56 PM EST Body Mass Index 25.98 02/09/2020 2:56 PM EST Plan of Treatment Not on file Insurance MEDICAID
[2024-09-04 15:07] VITALS: BP 142/85; PULSE 75; RESP 18; O2SAT 97; BMI 27.1
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
== END 2024-09-04 23:59 | disposition home or self-care (01) ==
PROVIDERS: PCP Family Medicine; Visit Provider Nurse Practitioner Family
DX: M47.816 Spondylosis without myelopathy or radiculopathy, lumbar region (principal); Z79.891 Long term (current) use of opiate analgesic; Z79.899 Other long term (current) drug therapy
CPT/HCPCS: 99212; G0463

== ENCOUNTER 2024-09-18 13:00 | Outpatient (RCR) | payer MEDICAID, SELFPAY ==
--- NOTE | 2024-09-13 16:13 | HMH.RHREAS ---
Rehab Reassessment Rehab OP Re-assessment Start: 09/13/24 15:04 Freq: Status: Active Protocol: Document 09/13/24 15:17 PHOHarlanRICHARD (Rec: 09/13/24 16:13 PHORNE [id number]) E-signed By Varun Mendez, PT Oswestry Index Section 1 Pain Intensity The pain comes and goes and is severe Section 2 Personal Care ( increase the pain and I find it necessary to change my Washing,Dresing) way of doing it Section 3 Lifting lifting heavy weights off the floor, but I can manage light to medium Section 4 Walking I cannot walk more than one mile wihtout increasing pain Section 5 Sitting Pain prevents me from sitting for more than 1/2 hour Section 6 Standing I cannot stand more than 10 minutes without increasing pain Section 7 Sleeping Because of my pain, my normal night's sleep is less than 4 hours Section 8 Social Life Pain has restricted my social life and I do not go out often Section 9 Traveling I get extra pain while traveling which compels me to seek alternate fo Section 10 Changing Degreee of My pain is neither getting better or worse Pain Score and Risk Level Oswestry Sc 32 Oswestry Risk Level Severe Disability Rehab Re-assessment Subjective Subjective Pt has not been present for therapy services since her initial evaluation performed 08/09/24. She reports continued pain in low back that is unchanged and continued numbness in B lateral thigh to the knee distally. She continues to c/o pain with all activities including sitting, standing, or bending. Pt reports she is unable to tolerate even light home exercises as instructed due to increased pain. Objective Objective Notes AROM lumbar spine (in deg): FLEX 0-25, EXT 0, R SB 0-5, L SB 0-5 Pain currently 7/10 in low back B. TTP: 3/4 B SI and lumbar spine from L3-S1 MMT B LE: Hip Flex 3/5, Hip ABD 3/5, Knee Flex 3+/5. Knee Ext 4/5 Assessment Progress Assessment No Progress Assessment Notes Pt has increased oswestry score vs her initial evaluation and significant c/o pain remain at all time without relief. She Continues to have severely limited lumbar spin motion in all directions and decreased strength throughout B LE. Skilled therapy remains indicated to aid reduction of pain and improve mobility , but only if pt is able to be present for treatment sessions as scheduled. Patient goals met ST/8 LT Plan Plan Continue with initial POC. Frequency of Therapy 2 x/wk Duration of therapy 4 wks Time and Billing Re-Eval Time 13 Re-Eval Billing 1 Units Charge for PT Yes reassessment? PHYSICIAN CERTIFICATION: I certify the specified therapy services for Delaney Orellana are required, authorized, and reviewed every 30 days.
== END 2024-09-18 23:59 | disposition home or self-care (01) ==
LOC: PT 13:00
PROVIDERS: PCP Family Medicine; Visit Provider Nurse Practitioner Family
DX: M47.816 Spondylosis without myelopathy or radiculopathy, lumbar region (principal)
CPT/HCPCS: 97014; 97110; 97164; G0283

== ENCOUNTER 2024-09-27 10:41 | Outpatient (POV) | payer MEDICAID, SELFPAY ==
--- OUTSIDE RECORDS SUMMARY | 2024-09-27 10:47 | XMS_ITS | Clinical Summary ---
Author Organization Healthcare Address [address] [place] [address] Care Team Providers Care Buildings And Grounds Director Name Role Phone Unavailable Primary Care Provider [...]
--- NOTE | 2024-09-27 10:55 | A.OFFVIS_ITS ---
[facility] Disclaimer: The information contained in this section may have been updated after the patient was seen, as this information can be updated by other users. Medical History (Updated 09/27/24 @ 10:57 by Mellissa Silva APRN) Screening for colon cancer Hypertriglyceridemia Bilateral lower extremity edema Abnormal electrocardiogram [ECG] [EKG] Screening for cervical cancer Breast cancer screening by mammogram Screening for breast cancer intermediate use of drug Hypertension Surgical History History of lumbar surgery History of right knee surgery Family History Other Lung cancer Social History Smoking Status: Current every day smoker tobacco type: e-cigarettes alcohol intake: current alcohol intake frequency: 3 or more drinks per day substance use type: former substance user and methamphetamine current occupational status: other Travel in the last 8 weeks?: None household members: other housing: house current occupational exposures/hazards: No caffeine: Yes PM Subjective & Objective Subjective Subjective:: Patient is a pleasant 49-year-old female who presents today for 1 month follow- up. She rates her pain today as 7 out of 10. She denies any new trauma or injury from her last appointment. She is still having significant pain throughout her low back that is worse with certain movements such as bending, twisting or lifting. Patient does state that she can definitely tell a difference that she has not had an injection recently. She states the pain is interfering with her ability to perform activities of daily living such as cooking and cleaning. She has been going to physical therapy for several visits. She states that some exercises she can do but a lot she cannot because it really does worsen her low back pain. Patient states that she is still continuing to go. Patient does state that the methocarbamol that we sent in at our last visit did really seem to help and did not cause drowsiness during the day. Patient was prescribed 500 mg twice a day. Patient does also use the compounded cream and states that really does at least help provide temporary relief. She is interested in any options we may be able to provide. Her Tyree has been reviewed and is appropriate. Review of Systems: General: No recent weight changes, no fever, no sleep disturbances Respiratory: No cough, no shortness of air, no recurring pulmonary infections Cardiovascular/peripheral vascular: No chest pain, no palpitations, no edema, no shortness of breath Gastrointestinal: No new onset incontinence, normal bowel movements reported Genitourinary: No new onset incontinence Musculoskeletal: Chronic low back pain Psychiatric: [Normal mood/affect] Neurological: [Denies weakness in extremities], [denies balance issues] Pain at rest (0-10 scale): 7 Objective Objective:: Physical Exam: General: Alert and oriented x3, no acute distress, pleasant and cooperative Lungs: Respirations even and unlabored, symmetrical chest expansion Eyes: PERRL Musculoskeletal: Flexion and extension of lumbar [spine] somewhat guarded secondary to pain, [antalgic gait noted] positive Kemps test Neurological: Speech clear, no gross sensory deficit Has patient had previous pain injection?: No Conservative treatment options previously tried: Home exercise plan Length of treatment: Longer than 12 weeks and Physical Therapy Length of treatment: Ongoing Meds Home Medications and Allergies Home Medications ?Medication ?Instructions ?Recorded ?Confirmed ?Type omega-3 fatty acids-fish oil 360 1 cap PO DAILY #30 ca ps 01/31/24 09/04/24 Rx mg-1,200 mg capsule tizanidine 4 mg tablet 4 mg PO TID MUSCLES 90 days #270 04/20/24 09/04/24 Rx tabs ezetimibe 10 mg tablet See Rx Instructions .Route 0 06/06/24 09/04/24 Rx .COMPLEX #90 tabs aripiprazole 2 mg tablet (Abilify) 2 mg PO DAILY #30 t abs 06/28/24 09/04/24 Rx lisinopril 20 1 tab PO DAILY #30 tabs 06/2709/04/24 Rx mg-hydrochlorothiazide 12.5 mg tablet hydralazine 25 mg tablet 25 mg PO TID PRN if BP over 180 07/20/24 09/04/24 Rx systolic #90 tabs amitriptyline 100 mg tablet 100 mg PO DAILY #30 tabs 0 08/09/24 09/04/24 Rx fluoxetine 60 mg tablet 90 mg (1.5 x 60 mg) PO DAILY 90 08/22/24 09/04/24 Rx days #135 tabs oxcarbazepine 150 mg tablet 150 mg PO BID #60 tabs 09/04/24 Rx (Trileptal) fluticasone propionate 50 See Rx Instructions .Route 0 08/25/24 09/04/24 Rx mcg/actuation nasal .COMPLEX #16 grams spray,suspension methocarbamol 500 mg tablet 500 mg PO BID #28 tabs 12/21 Rx loratadine 10 mg tablet (Allergy See Rx Instructions . Route 09/05/24 Rx Relief (loratadine)) .COMPLEX #90 tabs omeprazole 20 mg capsule,delayed See Rx Instructions . Route 09/05/24 Rx release .COMPLEX #90 caps gabapentin 800 mg tablet See Rx Instructions .Route 0 09/13/24 Rx .COMPLEX #90 tabs oxycodone-acetaminophen 10 mg-325 1 tab PO QID PRN janel n #120 tabs 09/13/24 Rx mg tablet diazepam 5 mg tablet 5 mg PO DAILY PRN anxiety #3 0 tabs 09/20/24 Rx New Prescriptions to Start Prescriptions: Allergies Allergy/AdvReac Type Severity Reaction Status Date / Time Sulfa (Sulfonamide Allergy Severe Anaphylaxis Verified 08/25/24 13:56 Antibiotics) lamotrigine Allergy Mild Hives Verified 08/25/24 13:56 propranolol Allergy Verified 08/25/24 13:56 Assessment and Plan *Assessment and plan (1) Lumbar spondylosis: Status: Acute Category: Medical Code(s): M47.816 - Spondylosis without myelopathy or radiculopathy, lumbar region (2) Chronic back pain: Status: Acute Category: Medical Code(s): M54.9 - Dorsalgia, unspecified; G89.29 - Other chronic pain Plan Patient continues to experience significant pain in her low back that is worse with bending, twisting or lifting. Patient did have limited range of motion of her lumbar spine with a positive Kemps test during today's visit. I did review over again the risk and benefits of a lumbar medial branch block and she would like to proceed forward with this plan of care. Patient has been actively going to physical therapy however this is aggravating her overall low back symptoms. Patient is still continuing to do this treatment. Patient has had chronic back pain for longer than a year.Patient has tried and failed conservative therapy including oral medications, heat and ice, topicals, at home stretching exercise for longer than 12 weeks that was physician guided. Patient was counseled that if she does get significant relief with her first lumbar medial branch block that we will plan on repeating it with the plan to progress forward to a lumbar RFA at a later date. Patient agrees with this plan of care. Patient will be scheduled for her first diagnostic lumbar medial branch block bilaterally L4-L5 and L5-S1 under fluoroscopy. Patient has been instructed to contact the clinic with any concerns before the next appointment. Dr. Lee has reviewed this note and agrees with this plan of care. This note was dictated using voice recognition software and make contain errors or omissions. All injections are used with Lidocaine, Bupivacaine and dexamethasone. Occasionally urine drug screen is needed to verify patient's compliance with our office pain contract. This is ordered based off specific treatments related to chronic pain with the potential to abuse certain medications.
[2024-09-27 10:58] VITALS: BP 106/63; PULSE 98; RESP 18; O2SAT 95; BMI 27.1
== END 2024-09-27 23:59 | disposition home or self-care (01) ==
PROVIDERS: PCP Family Medicine; Visit Provider Nurse Practitioner Family
DX: M47.816 Spondylosis without myelopathy or radiculopathy, lumbar region (principal); G89.29 Other chronic pain; Z79.899 Other long term (current) drug therapy
CPT/HCPCS: 99212; G0463

== ENCOUNTER 2024-10-17 13:05 | Day surgery (SDC) | payer MEDICAID, SELFPAY ==
[2024-10-17 13:12] VITALS: BP 102/68; PULSE 62; RESP 18; O2SAT 98; BMI 28.7
[2024-10-17] MEDS: LIDOCAINE 1% 5ML PF VIAL 5 ML (13:22)
[2024-10-17] MEDS: BUPIVACAINE 0.25% 10ML INJ 25 MG IJ (13:22)
[2024-10-17 13:23] VITALS: BP 109/48; PULSE 67; RESP 18; O2SAT 99
[2024-10-17 13:24] VITALS: BP 109/48; PULSE 67; RESP 18; O2SAT 99
[2024-10-17 13:28] VITALS: BP 116/78; PULSE 67; RESP 18; O2SAT 100
--- NOTE | 2024-10-17 13:34 | EXP.PAIN.PRO ---
Procedure Date: 10/17/24 Time: 13:15 Anesthesiologist:: Parker Anand CRNA Complications:: None Pre-procedure Diagnosis:: Degenerative disc lumbar spine multilevels. Lumbar radiculopathy. Lumbar postlaminectomy syndrome. Lumbar spondylosis. Post-procedure Diagnosis:: Same. Indications for Procedure:: Patient is a pleasant 49-year-old female who comes our clinic today for round 2 diagnostic lumbar medial branch blocks/facet injections the L4-5, L5-S1 level. Patient describes low lumbar back pain as constant, dull, aching. She rates her pain 7/10. She reports responding very well to previous injections at the same levels. Procedure Details:: Informed consent was obtained and the risk and benefits of the procedure was explained to the patient. Patient was taken to the procedure room where noninvasive monitors were placed, including noninvasive blood pressure cuff as well as pulse oximeter. The area over the lumbar spine was cleansed using chlorhexidine as a cleansing solution. I anesthetized the skin and subcutaneous tissues with 1% Lidocaine. I placed 22-gauge spinal needles into the facet joint/ medial branches of L4-L5, and L5-S1 bilaterally. Needle placement was confirmed with fluoroscopy. After confirmation of needle placement, each site was injected with 1 mL of 1% lidocaine and 0.25 % Marcaine 1 mL. Patient tolerated the procedure without difficulty. There were no complications. Plan and Disposition:: Patient was discharged without incident.
== END 2024-10-17 13:28 | disposition home or self-care (01) ==
PROVIDERS: PCP Family Medicine; Visit Provider Nurse Anesthetist, Certified Registered
DX: M47.816 Spondylosis without myelopathy or radiculopathy, lumbar region (principal); G89.29 Other chronic pain; M54.9 Dorsalgia, unspecified; M96.1 Postlaminectomy syndrome, not elsewhere classified; I10 Essential (primary) hypertension; E78.1 Pure hyperglyceridemia; F17.290 Nicotine dependence, other tobacco product, uncomplicated; Z79.899 Other long term (current) drug therapy; Z88.2 Allergy status to sulfonamides; Z88.8 Allergy status to other drugs, medicaments and biological substances
CPT/HCPCS: 64493; 64494; J0665; J2003

== ENCOUNTER 2024-11-06 10:27 | Outpatient (POV) | payer MEDICAID, SELFPAY ==
--- OUTSIDE RECORDS SUMMARY | 2024-11-06 10:31 | XMS_ITS | Clinical Summary ---
Author Organization Healthcare Address [address] [place] [address] Care Team Providers Care Tongue Stitcher Name Role Phone Unavailable Primary Care Provider [...]
[2024-11-06 10:36] VITALS: BP 132/78; PULSE 89; RESP 18; O2SAT 95; BMI 29.1
--- NOTE | 2024-11-06 10:44 | EXP.PAIN.SOA ---
[facility] Disclaimer: The information contained in this section may have been updated after the patient was seen, as this information can be updated by other users. Medical History Screening for colon cancer Hypertriglyceridemia Bilateral lower extremity edema Abnormal electrocardiogram [ECG] [EKG] Screening for cervical cancer Breast cancer screening by mammogram Screening for breast cancer intermediate use of drug Hypertension Surgical History History of lumbar surgery History of right knee surgery Family History Other Lung cancer Social History Smoking Status: Current every day smoker tobacco type: e-cigarettes alcohol intake: current alcohol intake frequency: 3 or more drinks per day substance use type: former substance user and methamphetamine current occupational status: other Travel in the last 8 weeks?: None household members: other housing: house current occupational exposures/hazards: No caffeine: Yes PM Subjective & Objective Subjective Subjective:: Patient is a pleasant 49-year-old female who presents today for follow-up of her first lumbar diagnostic medial branch block on 10/17/2024. She states that this plan actually made her pain worse overall. She states that she just did not seem to provide significant relief. She is complaining of pain today that her legs are randomly getting and giving out causing her to fall. She does state the pain is interfering with her ability perform activities of daily living such as cooking and cleaning. Patient states that it does not happen continuously but will happen very frequently. Patient is unsure exactly what is going on. Patient is prescribed methocarbamol 500 mg twice a day from our office and compounded cream. She is requesting a refill on her cream. Her Tyree has been reviewed and is appropriate. Review of Systems: General: No recent weight changes, no fever, no sleep disturbances Respiratory: No cough, no shortness of air, no recurring pulmonary infections Cardiovascular/peripheral vascular: No chest pain, no palpitations, no edema, no shortness of breath Gastrointestinal: No new onset incontinence, normal bowel movements reported Genitourinary: No new onset incontinence Musculoskeletal: Low back pain, leg pain Psychiatric: [Normal mood/affect] Neurological: [Denies weakness in extremities], [denies balance issues] Pain at rest (0-10 scale): 7 Objective Objective:: Physical Exam: General: Alert and oriented x3, no acute distress, pleasant and cooperative Lungs: Respirations even and unlabored, symmetrical chest expansion Eyes: PERRL Musculoskeletal: Flexion and extension of lumbar [spine] somewhat guarded secondary to pain, [antalgic gait noted] positive leg raise Neurological: Speech clear, no gross sensory deficit Has patient had previous pain injection?: Yes Percent improvement in pain since last injection: Minimal Conservative treatment options previously tried: Home exercise plan Length of treatment: Longer than 12 weeks Meds Home Medications and Allergies Home Medications ?Medication ?Instructions ?Recorded ?Confirmed ?Type omega-3 fatty acids-fish oil 360 1 cap PO DAILY #30 caps 01/31/24 11/01/24 Rx mg-1,200 mg capsule tizanidine 4 mg tablet 4 mg PO TID MUSCLES 90 days #270 04/20/24 11/01/24 Rx tabs ezetimibe 10 mg tablet See Rx Instructions .Route 06/06/24 11/01/24 Rx .COMPLEX #90 tabs amitriptyline 100 mg tablet 100 mg PO DAILY #30 tabs 08/09/24 11/01/24 Rx fluoxetine 60 mg tablet 90 mg (1.5 x 60 mg) PO DAILY 90 08/22/24 11/01/24 Rx days #135 tabs oxcarbazepine 150 mg tablet 150 mg PO BID #60 tabs 08/22/24 11/01/24 Rx (Trileptal) fluticasone propionate 50 See Rx Instructions .Route 08/25/24 11/01/24 Rx mcg/actuation nasal .COMPLEX #16 grams spray,suspension loratadine 10 mg tablet (Allergy See Rx Instructions .Route 09/05/24 11/01/24 Rx Relief (loratadine)) .COMPLEX #90 tabs omeprazole 20 mg capsule,delayed See Rx Instructions .Route 09/05/24 11/01/24 Rx release .COMPLEX #90 caps gabapentin 800 mg tablet See Rx Instructions .Route 09/13/24 11/01/24 Rx .COMPLEX #90 tabs methocarbamol 500 mg tablet 500 mg PO BID #60 tabs 09/27/24 11/01/24 Rx aripiprazole 2 mg tablet (Abilify) 2 mg PO DAILY #30 tabs 10/10/24 11/01/24 Rx hydralazine 25 mg tablet 25 mg PO TID PRN if BP over 180 10/11/24 11/01/24 Rx systolic #90 tabs lisinopril 20 See Rx Instructions .Route 10/11/24 11/01/24 Rx mg-hydrochlorothiazide 12.5 mg .COMPLEX #30 tabs tablet oxycodone-acetaminophen 10 mg-325 1 tab PO QID PRN pain #120 tabs 10/11/24 11/01/24 Rx mg tablet diazepam 5 mg tablet 5 mg PO DAILY PRN anxiety #30 tabs 10/16/24 11/01/24 Rx furosemide 20 mg tablet (Lasix) 20 mg PO DAILY PRN edema #10 tabs 11/01/24 11/01/24 Rx New Prescriptions to Start Prescriptions: Allergies Allergy/AdvReac Type Severity Reaction Status Date / Time Sulfa (Sulfonamide Allergy Severe Anaphylaxis Verified 11/01/24 13:18 Antibiotics) lamotrigine Allergy Mild Hives Verified 11/01/24 13:18 propranolol Allergy Verified 11/01/24 13:18 Assessment and Plan *Assessment and plan (1) Lumbar radiculopathy: Status: Acute Category: Medical Code(s): M54.16 - Radiculopathy, lumbar region (2) DDD (degenerative disc disease), lumbar: Status: Chronic Category: Medical Code(s): M51.369 - Other intervertebral disc degeneration, lumbar region without mention of lumbar back pain or lower extremity pain Plan Patient is experiencing worsening pain in her low back with numbness and tingling into her lower extremities. Patient did have limited range of motion of her lumbar spine with a positive leg raise. I did discuss with patient that I do believe they would benefit from a lumbar epidural steroid injection. Risk and benefits were discussed with patient and the patient would like to proceed forward with this plan of care. Patient is not on any blood thinner. Patient has tried and failed conservative therapy including oral medications, heat and ice, topicals and continued at home stretching exercise for longer than 12 weeks between injections. Patient has had chronic back pain for longer than 6 months. Patient did previously have a lumbar epidural back in May that provided 75% relief and lasted longer than 3 months. She did state that it was more prominent in the first 2 weeks however still okay overall improvement for several months. We will schedule the patient for an LESI L4-L5 under fluoroscopy. We did also discuss due to her worsening symptoms that I will put in an x-ray order and submit for an MRI without contrast to follow to see if there is more significant stenosis causing her symptoms. Patient agrees with this plan of care. I will reorder the patient's compounded cream. Patient has been instructed to contact the clinic with any concerns before the next appointment. Dr. Lee has reviewed this note and agrees with this plan of care. This note was dictated using voice recognition software and make contain errors or omissions. All injections are used with Lidocaine, Bupivacaine and dexamethasone. Occasionally urine drug screen is needed to verify patient's compliance with our office pain contract. This is ordered based off specific treatments related to chronic pain with the potential to abuse certain medications.
== END 2024-11-06 23:59 | disposition home or self-care (01) ==
PROVIDERS: PCP Family Medicine; Visit Provider Nurse Practitioner Family
DX: M51.16 Intervertebral disc disorders with radiculopathy, lumbar region (principal); Z79.899 Other long term (current) drug therapy
CPT/HCPCS: 99212; G0463

== ENCOUNTER 2024-11-14 13:44 | Outpatient (CLI) | payer MEDICAID, SELFPAY ==
--- NOTE | 2024-11-14 13:46 | XR_ITS ---
FINAL REPORT CLINICAL HISTORY: Low back pain COMPARISON: 09/14/2022 FINDINGS: LUMBAR SPINE Three views were obtained. There is no acute fracture. There is moderate disc space narrowing at L4-5 and L5-S1 with prominent sclerosis in the endplates at these levels. Bilateral facet hypertrophy is identified. There is no malalignment. IMPRESSION: Progressive disc space narrowing at L4-5 and L5-S1. Reviewed, Interpreted and Dictated by Mikey Rivera MD Transcribed by Ade Gomez Authenticated and [facility]
--- OUTSIDE RECORDS SUMMARY | 2024-11-14 13:47 | XMS_ITS | Clinical Summary ---
Author Organization Healthcare Address [address] [place] [address] Care Team Providers Care Manager Life Name Role Phone Unavailable Primary Care Provider [...]
== END 2024-11-14 23:59 | disposition home or self-care (01) ==
LOC: RAD 13:45
PROVIDERS: PCP Family Medicine; Visit Provider Nurse Practitioner Family
DX: M99.73 Connective tissue and disc stenosis of intervertebral foramina of lumbar region (principal); M54.16 Radiculopathy, lumbar region
CPT/HCPCS: 72100

== ENCOUNTER 2024-11-24 10:21 | Outpatient (CLI) | payer MEDICAID, SELFPAY ==
[2024-11-24 18:24] LABS: Hematocrit 33.3 % (37.0-47.0); Hemoglobin 10.6 g/dL (12.2-16.2); Immature Granulocytes % 0.3 %; Mean Corpuscular HGB Conc 31.8 g/dL (31.8-35.4); Mean Corpuscular Hemoglobin 27.8 pg (27.0-31.2); Mean Corpuscular Volume 87.4 fl (81-99); Nucleated Red Blood Cells % 0 %; Platelet Count 292 K/mm3 (142-424); Red Blood Count 3.81 M/mm3 (4.20-5.40); Red Cell Distribution Width-SD 49.1 fL; White Blood Count 7.0 K/mm3 (4.8-10.8)
[2024-11-24 19:05] LABS: Chloride 100 mmol/L (98-107)
[2024-11-24 19:06] LABS: Albumin Level 4.1 g/dl (3.5-5.0); Potassium 5.6 mmoL/L (3.5-5.1); Sodium 134 mmol/L (136-145)
[2024-11-24 19:08] LABS: Alanine Aminotransferase 37 U/L (12-78); Anion Gap 11.6 mEq/L (5-15); Aspartate Amino Transferase 41 U/L (14-36); Blood Urea Nitrogen 14 mg/dl (7-17); Carbon Dioxide 28 mmol/L (22.0-30.0); Creatinine,Serum 0.90 mg/dl (0.52-1.04); Estimated Glomerular Filt Rate 67 ml/min (>60); GFR (African American) 81 ML/MIN (>60)
[2024-11-24 19:09] LABS: Albumin/Globulin Ratio 1.6 (1.1-1.8); Alkaline Phosphatase 82 U/L (38-126); Bilirubin,Total 0.2 mg/dl (0.2-1.3); Calcium 9.8 mg/dl (8.4-10.2); Globulin 2.6 g/dL (1.3-3.2); Glucose 106 mg/dl (74-100); Total Protein,Serum 6.7 g/dl (6.3-8.2)
--- OUTSIDE RECORDS SUMMARY | 2024-11-27 10:22 | XMS_ITS | Clinical Summary ---
Author Organization Healthcare Address [address] [place] [address] Care Team Providers Care Bean Sprout Laborer Name Role Phone Unavailable Primary Care Provider [...]
== END 2024-11-24 23:59 ==
LOC: LAB.DROPOF 11-27 10:21
PROVIDERS: PCP Family Medicine; Visit Provider Family Medicine
DX: R60.0 Localized edema (principal); I10 Essential (primary) hypertension
CPT/HCPCS: 80053; 85025

== ENCOUNTER 2024-12-05 14:03 | Outpatient (CLI) | payer MEDICAID, SELFPAY ==
--- OUTSIDE RECORDS SUMMARY | 2024-12-05 14:06 | XMS_ITS | Clinical Summary ---
Author Organization Healthcare Address [address] [place] [address] Care Team Providers Care Client Architect Name Role Phone Unavailable Primary Care Provider [...]
[2024-12-05 15:06] LABS: Alanine Aminotransferase 38 U/L (12-78); Albumin Level 4.2 g/dl (3.5-5.0); Albumin/Globulin Ratio 1.6 (1.1-1.8); Alkaline Phosphatase 80 U/L (38-126); Anion Gap 13.3 mEq/L (5-15); Aspartate Amino Transferase 42 U/L (14-36); Bilirubin,Total 0.3 mg/dl (0.2-1.3); Blood Urea Nitrogen 16 mg/dl (7-17); Calcium 10.1 mg/dl (8.4-10.2); Carbon Dioxide 27 mmol/L (22.0-30.0); Chloride 103 mmol/L (98-107); Creatinine,Serum 1.00 mg/dl (0.52-1.04); Estimated Glomerular Filt Rate 59 ml/min (>60); GFR (African American) 72 ML/MIN (>60); Globulin 2.7 g/dL (1.3-3.2); Glucose 127 mg/dl (74-100); Potassium 4.3 mmoL/L (3.5-5.1); Sodium 139 mmol/L (136-145); Total Protein,Serum 6.9 g/dl (6.3-8.2)
[2024-12-05 15:52] LABS: Hemoglobin A1C 6.3 % (4.0-6.0)
== END 2024-12-05 23:59 | disposition home or self-care (01) ==
PROVIDERS: PCP Family Medicine; Visit Provider Family Medicine
DX: E78.5 Hyperlipidemia, unspecified (principal); R73.09 Other abnormal glucose
CPT/HCPCS: 36415; 80053; 83036

== ENCOUNTER 2024-12-08 10:40 | Outpatient (CLI) | payer MEDICAID, SELFPAY ==
[2024-12-08 19:25] LABS: Hematocrit 32.4 % (37.0-47.0); Hemoglobin 10.3 g/dL (12.2-16.2); Immature Granulocytes % 0.2 %; Mean Corpuscular HGB Conc 31.8 g/dL (31.8-35.4); Mean Corpuscular Hemoglobin 27.2 pg (27.0-31.2); Mean Corpuscular Volume 85.5 fl (81-99); Nucleated Red Blood Cells % 0 %; Platelet Count 338 K/mm3 (142-424); Red Blood Count 3.79 M/mm3 (4.20-5.40); Red Cell Distribution Width-SD 47.5 fL; White Blood Count 8.3 K/mm3 (4.8-10.8)
[2024-12-08 20:03] LABS: Free T4 (Free Thyroxine) 1.05 ng/dl (0.78-2.19)
[2024-12-08 20:17] LABS: Thyroid Stimulating Hormone 0.91 uIU/mL (0.465-4.68)
[2024-12-08 20:36] LABS: Vitamin B12 342 pg/mL (239-931)
[2024-12-08 20:55] LABS: Folate 11.30 ng/mL
[2024-12-08 21:04] LABS: Iron 57 ug/dL (37-170)
[2024-12-08 21:13] LABS: Total Iron Binding Capacity 445 ug/dL (265-497)
[2024-12-08 21:40] LABS: Ferritin 8.72 ng/ml (6.24-137)
--- OUTSIDE RECORDS SUMMARY | 2024-12-11 10:45 | XMS_ITS | Clinical Summary ---
Author Organization Healthcare Address [address] [place] [address] Care Team Providers Care Bow Maker Name Role Phone Unavailable Primary Care Provider [...] of Treatment Not on [place] [id number]
== END 2024-12-08 23:59 ==
LOC: LAB.DROPOF 12-11 10:40
PROVIDERS: PCP Family Medicine; Visit Provider Family Medicine
DX: D64.9 Anemia, unspecified (principal); R63.5 Abnormal weight gain
CPT/HCPCS: 82607; 82728; 82746; 83540; 83550; 84439; 84443; 85025

== ENCOUNTER 2024-12-13 14:57 | Outpatient (RCR) | payer MEDICAID, SELFPAY ==
--- NOTE | 2024-12-13 15:42 | HMH.PTOPEV ---
PT Evaluation Rehab PT Outpatient Evaluation Start: 12/13/24 15:00 Freq: Status: Active Protocol: Document 12/13/24 15:00 KIKO (Rec: 12/13/24 15:42 CLAREYANELIKATERYNA [id number]) E-signed By Amari Hull, PT Outpatient Therapy Subjective History Subjective History Pt is a 49 yof who is referred to [facility] outpatient PT with complaints of chronic Low back pain. She reports that her back pain began in 2019 and has progressively worsened since then. She reports that she has had two surgeries on her back but is unable to report what surgeries she has had. She reports that she has occasional numbness down her lateral thighs but not constantly. She reports that she received injections which helped, but she was denied this time due to not having Physical Therapy. Pt reports difficulty with driving very short distances due to increased back and leg pain. Occupation: Caregiver (full-time) PMH: Hypertriglyceridemia Bilateral lower extremity edema Abnormal electrocardiogram [ECG] [EKG] Screening for cervical cancer Breast cancer screening by mammogram Screening for breast cancer [facility] use of drug Hypertension Occupation: caregiver New diagnosis of No cancer in past 12 months? Chief Complaint Pain,Stiff Symptom Type Ache Symptoms Relieved By Prescription Meds Current Functional Lifting,Housework,Standing,Sitting,Squatting,Walking, Limitations Stairs,Balance Symptom Description Constant but Variable,Activity Dependent Level of pain today 8 (0-10) Pain scale - at its 6 best (0-10) Pain scale - at its 9 worst (0-10) Lumbopelvic Eval Posture Thoracic Spine Neutral Posture Standing Position Lumbar Spine Posture Neutral Standing Position Palapation tenderness bilateral lumbar spinal Yes: 4/4 to L2-L3 tenderness Accessory Movement L2 bilateral L3 bilateral Range of Motion Lumbar Spine Active 25 Flexion Range of Motion (degrees) Lumbar Spine Active 10 Extension Range of Motion (degrees) Left Lumbar Spine 10 Lateral Flexion Active Range of Motion (degrees) Right Lumbar Spine 10 Lateral Flexion Active Range of Motion (degrees) Lumbar Spine ROM Soft Tissue Tightness,Pain Limitations Manual Muscle Test Bilateral Knee Extension 3 Fair Strength Grade Knee Flexion 3 Fair Strength Grade Hip Flexion Strength 3 Fair Grade Hip Abduction 2+ Poor+ Strength Grade Hip Adduction 3 Fair Strength Grade Hip Extension 3 Fair Strength Grade DTR Rt Patellar 2+ Lt Patellar 2+ Rt Gastroc/Soleus 2+ Lt Gastroc/Soleus 2+ Altered Sensation Bilateral Comment intact to LT Special Tests Lumbar Spine Screen Positive Forward Bending Test Negative Left - Standing Hip Sitting Root Negative Left Test Hip Scouring ( Negative Left Quadrant) Test Hip Parker (JEROME) Negative Left Test Hip Nicole's Test Negative Left Sacroiliac Joint Negative Left Compression Test Oswestry Index Section 1 Pain Intensity The pain comes and goes and is moderate Section 2 Personal Care ( increase the pain and I find it necessary to change my Washing,Dresing) way of doing it Section 3 Lifting Pain prevents me from lifting weights off the floor Section 4 Walking I cannot walk more than 1/4 mile without increasing pain Section 5 Sitting Pain prevents me from sitting for more than 10 minutes Section 6 Standing I cannot stand more than 10 minutes without increasing pain Section 7 Sleeping Because of my pain, my normal night's sleep is less than 4 hours Section 8 Social Life Pain has restricted my social life and I do not go out often Section 9 Traveling I get extra pain while traveling which compels me to seek alternate fo Section 10 Changing Degreee of My pain is gradually getting worse Pain Score and Risk Level Oswestry Score 32 Oswestry Risk Level Severe Disability Outpatient Therapy Assessment Impairments Problems/ Palpation Tenderness,Impaired Range of Motion,Impaired Impairmments Strength,Impaired Endurance,Impaired Gait Pattern, Impaired Walking,Impaired Lifting,Impaired Household Care,Impaired Balance,Subjective C/O Pain,Impaired Self Care/Self Management Prognosis Rehab Potential Good Clinical Impression Consistent with Yes Diagnosis Consistent with Low back pain/Dorsalgia PT Patient Goals PT Patient Goals PT Short Term 3 weeks: Patient Goals 1. Patient will report a 48 hour average pain of 5/10 on the numeric pain rating scale to demonstrate improvement in quality of life and increased functional capacity. 2. Patient will improve hip abductor strength upon manual muscle testing to 3+/5 facilitate increased spinal stabilization and improved functional capabilities. 3. Patient will demonstrate a reduction in trigger point sensitivity to Grade 2 with manual palpation to improve comfort during activity and soft tissue mobility. 4. Patient will improve lumbar ROM by 10 degrees in all planes to demonstrate improved movement patterns with functional mobility and ADLs. 5. Patient will be able to stand for 15 minutes at one time to demonstrate independence with embosser operator, such as washing her dishes. 6. Pt will demonstrate HEP compliance by completing prescribed HEP 4-5x/week. 7. Pt will improve RHINA score to 29 to demonstrated improved functional mobility, overall improvement and improved quality of life. PT Shelter Patient 6 weeks: Goals 1. Patient will report a 48 hour average pain of 2-3/10 on the numeric pain rating scale to demonstrate improvement in quality of life and increased functional capacity. 2. Patient will improve hip abductor strength upon manual muscle testing to 4/5 facilitate increased spinal stabilization and improved functional capabilities. 3. Patient will demonstrate a reduction in trigger point sensitivity to Grade 0-1 with manual palpation to improve comfort during activity and soft tissue mobility. 4. Patient will improve lumbar ROM by 15-20 degrees in all planes to demonstrate improved movement patterns with functional mobility and ADLs. 5. Patient will be able to stand/walk for 1 hour at one time to demonstrate improved community ambulation for activities, such as grocery shopping and other activities. 6. Pt will be able to lift a 10# weight from floor with proper lifting mechanics and less than 2/10 pain to demonstrate the ability to lift items, such as grocery bags, milk jugs, laundry basket, etc. 7. Pt will improve RHINA score to 25 to demonstrated improved functional mobility, overall improvement and improved quality of life. Outpatient Therapy Plan of Care Treatment Plan May Include Therapeutic Exercise Yes Including Home Exercise Program Manual Therapy Yes Techniques Neuromuscular Re- Yes education Therapeutic Yes Activities to Return to Previous Functional/Work Level Gait Training Yes ADL/Self Care Yes Education Mechanical Traction Yes Dry Needling Yes Thermal Modalities Yes Electrical Yes Stimulation Ultrasound/ Yes Phonophoresis Iontophoresis Yes Massage Yes Manual Lymphatic Yes Drainage Eval/Re-Eval Yes Aquatic Therapy Yes Frequency Times per week 2 Duration Number of Weeks 6 Addendums This patient is a No candidate for social or vocational rehab ? Patient/Guardian Yes verbally acknowledges understanding of treatment program and consents to further treatment? Patient/Guardian Yes verbally acknowledges understanding of diagnosis, prognosis and goals for treatment? Eval Complexity PT Charges 29088 - High Complexity Shoulder/Elbow Eval Shoulder Objective Measurements Elbow Objective Measurements PHYSICIAN CERTIFICATION: I certify the specified therapy services for Delaney Orellana are required, authorized, and reviewed every 30 days.
== END 2024-12-13 23:59 | disposition home or self-care (01) ==
LOC: PT 14:57
PROVIDERS: Visit Provider Family Medicine
DX: M51.369 Other intervertebral disc degeneration, lumbar region without mention of lumbar back pain or lower extremity pain (principal); M54.2 Cervicalgia; M47.816 Spondylosis without myelopathy or radiculopathy, lumbar region; R60.0 Localized edema
CPT/HCPCS: 97163

== ENCOUNTER 2024-12-19 13:14 | Day surgery (SDC) | payer MEDICAID, SELFPAY ==
[2024-12-19 13:20] VITALS: BP 121/58; PULSE 87; RESP 18; O2SAT 96; BMI 31.1
[2024-12-19 13:36] VITALS: BP 114/64; PULSE 83; RESP 18; O2SAT 98
[2024-12-19] MEDS: DEXAMETHASONE 10MG/ML 1ML VIAL 10 MG (13:37)
[2024-12-19 13:41] VITALS: BP 116/73; PULSE 85; RESP 18; O2SAT 97
--- NOTE | 2024-12-19 14:14 | EXP.PAIN.PRO ---
Procedure Date: 12/19/24 Time: 13:30 Anesthesiologist:: Thuan Anand CRNA Complications:: None Pre-procedure Diagnosis:: Degenerative disc lumbar spine multilevels. Lumbar radiculopathy Post-procedure Diagnosis:: Same. Indications for Procedure:: Patient is a pleasant 49-year-old female comes our clinic today for lumbar epidural steroid injection. Patient describes low lumbar back pain as constant, dull, aching. Patient also reports bilateral hip and leg radicular symptoms at times. She rates her pain 7/10. Procedure Details:: Procedure: Lumbar epidural steroid injection under fluoroscopy Informed consent was obtained and the risks and benefits of the procedure were explained to the patient. The patient was taken to the procedure room and noninvasive monitors placed, including noninvasive blood pressure cuff and pulse oximeter. The back was viewed using C-arm Fluoroscopy and prepped using Chloraprep as a cleansing solution and the L4-L5 interspace was palpated. Skin and subcutaneous tissues were anesthetized using lidocaine 1.5% and a 25-gauge needle. After this, an 18-gauge Touhy epidural needle was placed into the L4-L5 interspace and advanced using fluoroscopic guidance and loss of resistance to air until the epidural space was encountered. After confirmation of needle placement in the epidural space, with dye, a solution containing normal saline, 3 mL and dexamethasone 10 mg were incrementally injected into the lumbar epidural space. The patient tolerated the procedure well with no complications. The patient was observed in the Pain Clinic and then discharged home neurologically intact. Plan and Disposition:: Patient was discharged without incident.
== END 2024-12-19 13:41 | disposition home or self-care (01) ==
LOC: SC.PAINP 13:16
PROVIDERS: PCP Family Medicine; Visit Provider Nurse Anesthetist, Certified Registered
DX: M51.16 Intervertebral disc disorders with radiculopathy, lumbar region (principal); I10 Essential (primary) hypertension; E78.5 Hyperlipidemia, unspecified; K21.9 Gastro-esophageal reflux disease without esophagitis; F32.A Depression, unspecified; F41.9 Anxiety disorder, unspecified; F17.290 Nicotine dependence, other tobacco product, uncomplicated; Z88.8 Allergy status to other drugs, medicaments and biological substances; Z98.890 Other specified postprocedural states; Z79.899 Other long term (current) drug therapy
CPT/HCPCS: 62323; J1100

== ENCOUNTER 2025-01-22 15:53 | Outpatient (CLI) | payer MEDICAID, SELFPAY ==
--- NOTE | 2025-01-22 15:56 | XR_ITS ---
FINAL REPORT CLINICAL HISTORY: rule out fracture FINDINGS: LEFT FOOT Three views were obtained. A transverse nondisplaced fracture through the base of the fifth metatarsal. There is no evidence of intra-articular extension. IMPRESSION: Nondisplaced fracture of the fifth metatarsal. Reviewed, Interpreted and Dictated by Mikey Rivera MD Transcribed by Ade Gomez Authenticated and . [facility]
--- OUTSIDE RECORDS SUMMARY | 2025-01-22 16:16 | XMS_ITS | Clinical Summary ---
Author Organization Healthcare Address [address] [place] [address] Care Team Providers Care Technician Preventative Medicine Name Role Phone Unavailable Primary Care Provider [...]
== END 2025-01-22 23:59 | disposition home or self-care (01) ==
LOC: RAD 15:54
PROVIDERS: PCP Family Medicine; Visit Provider Family Medicine
DX: S92.355A Nondisplaced fracture of fifth metatarsal bone, left foot, initial encounter for closed fracture (principal)
CPT/HCPCS: 73630

== ENCOUNTER 2025-01-30 12:58 | Outpatient (CLI) | payer MEDICAID, SELFPAY ==
--- OUTSIDE RECORDS SUMMARY | 2025-01-30 13:05 | XMS_ITS | Clinical Summary ---
Author Organization Healthcare Address [address] [place] [address] Care Team Providers Care Ribbon Hanking Machine Operator Name Role Phone Unavailable Primary Care Provider [...]
--- NOTE | 2025-01-30 13:23 | ECG_ITS ---
APPROVED REPORT Exam: Resting ECG HR:74 bpm ECG Measurements Heart Rate 74 AXES SC 156 P 41 QRSd 87 QRS -7 QT 379 T 16 QTc 407 Conclusion SINUS RHYTHM LOW QRS VOLTAGE IN PRECORDIAL LEADS with LAD Borderline ecg UNCONFIRMED REPORT Electronically signed by : Delonte Alva MD 01/31/2025 07:57:52
[2025-01-30 14:49] LABS: HCG Qualitative, Serum Negative (Negative)
== END 2025-01-30 23:59 | disposition home or self-care (01) ==
PROVIDERS: PCP Family Medicine; Visit Provider Orthopaedic Surgery
DX: Z01.810 Encounter for preprocedural cardiovascular examination (principal); Z01.812 Encounter for preprocedural laboratory examination; R94.31 Abnormal electrocardiogram [ECG] [EKG]
CPT/HCPCS: 84703; 93005

== ENCOUNTER 2025-01-31 06:03 | Day surgery (SDC) | payer MEDICAID, SELFPAY ==
--- NOTE | 2025-01-30 13:19 | XR_ITS ---
FINAL REPORT CLINICAL HISTORY: pre op FINDINGS: 2 views of the chest were obtained . The heart is normal in size. The mediastinum is within normal limits. The lungs are clear. There is no pneumothorax. Osseous structures are unremarkable. IMPRESSION: No acute cardiopulmonary process. Reviewed, Interpreted and Dictated by Rosalie Ruano MD Transcribed by Tabitha Bro Authenticated and [facility]
[2025-01-30 13:28] LABS: Hematocrit 34.5 % (37.0-47.0); Hemoglobin 11.1 g/dL (12.2-16.2); Immature Granulocytes % 0.3 %; Mean Corpuscular HGB Conc 32.2 g/dL (31.8-35.4); Mean Corpuscular Hemoglobin 28.6 pg (27.0-31.2); Mean Corpuscular Volume 88.9 fl (81-99); Nucleated Red Blood Cells % 0 %; Platelet Count 251 K/mm3 (142-424); Red Blood Count 3.88 M/mm3 (4.20-5.40); Red Cell Distribution Width-SD 50.6 fL; White Blood Count 7.8 K/mm3 (4.8-10.8)
[2025-01-30 13:37] LABS: Anion Gap 12.5 mEq/L (5-15); Blood Urea Nitrogen 24 mg/dl (7-17); Calcium 9.5 mg/dl (8.4-10.2); Carbon Dioxide 25 mmol/L (22.0-30.0); Chloride 99 mmol/L (98-107); Creatinine,Serum 0.90 mg/dl (0.52-1.04); Estimated Glomerular Filt Rate 67 ml/min (>60); GFR (African American) 81 ML/MIN (>60); Glucose 101 mg/dl (74-100); Potassium 4.5 mmoL/L (3.5-5.1); Sodium 132 mmol/L (136-145)
[2025-01-30 14:31] VITALS: BMI 33.2
[2025-01-31] VITALS (9 sets, daily range): BP systolic 118–137; BP diastolic 62–84; PULSE 69–82; RESP 16; TEMP 36.3–36.9; O2SAT 93–100; BMI 33.2
--- NOTE | 2025-01-31 | XR_ITS ---
FINAL REPORT CLINICAL HISTORY: ORIF 5TH METATARSAL 1.53 mgy 0.35 ft FINDINGS: FLUOROSCOPY LESS THAN 1 HOUR HISTORY: Fluoroscopy guidance. FINDINGS: Fluoroscopic guidance was provided for ORIF of the left foot with intramedullary nail through the fracture of the base of the 5th metatarsal. Two spot films were obtained. A total of 0:35 minutes of fluoroscopy time were used. DAP: 1.53 mGy IMPRESSION: As above. Reviewed, Interpreted and Dictated by Rosalie Ruano MD Transcribed by Joann Rider Authenticated and [facility]
[2025-01-31] MEDS: LACTATED RINGERS 1000ML 1,000 ML 100 ML IV (06:39)
--- NOTE | 2025-01-31 06:56 | P.PNANES_ITS ---
[facility] Disclaimer: The information contained in this section may have been updated after the patient was seen, as this information can be updated by other users. Medical History Prediabetes Chronic diarrhea Negative colorectal cancer screening using DNA-based stool test Screening for colon cancer Hypertriglyceridemia Bilateral lower extremity edema Abnormal electrocardiogram [ECG] [EKG] Screening for cervical cancer Breast cancer screening by mammogram Screening for breast cancer shelter use of drug Hypertension Surgical History History of lumbar surgery History of right knee surgery Family History Other Lung cancer Social History (Updated 01/31/25 @ 06:36 by Christianne Montoya RN) Smoking Status: Current every day smoker tobacco type: e-cigarettes alcohol intake: current alcohol intake frequency: 3 or more drinks per day substance use type: former substance user and methamphetamine current occupational status: other Travel in the last 8 weeks?: None household members: other housing: house current occupational exposures/hazards: No caffeine: Yes Have you lived/traveled outside [place] in past 30 days?: No Contact w/someone who lives/traveled outside US past 30 days?: No Exposure to someone with infectious disease in past 14 days?: No Do you have a fever (greater than 100.4 F or 38 C)?: No Have you tested positive for COVID-19?: No Exposed to someone with COVID-19 in past 14 days?: No Do you have a sore throat?: No Do you have a cough?: No Do you have any weakness?: No Are you experiencing any nausea/vomitting?: No Do you have any diarrhea?: No Are you experiencing any unusual bleeding?: No Do you have any muscle aches/pain?: No Do you have any abdominal pain?: No Are you experiencing loss of taste or smell?: No [facility] Anesthesia Checklist Patient Identification Patient Identification: Arm Band and Verbal (Name & ) Structural Data Admitted From: Home Planned Operative Procedure/s: Left foot 5th metatarsal ORIF Consent for Planned Operative Procedure(s) Verified: Yes Verified Documents: Surgical Consent NPO Status Verified Time NPO: 00:00 Additional verifications Anesthesia Reactions: No Hx Blood Transfusions: No Blood Transfusion Reaction: No Airway Assessment Mallampati Score:: Class II C-Spine Mobility Assessed: No TMJ Mobility Assessed: No Dentition: Edentulous Neurological Assessment Level of Consciousness: Awake, Alert and Appropriate Hx Seizures: No Numbness or tingling in extremities: No Anesthesia Plan Anesthesia Risk discussed: Yes Anesthesia Plan: Verified ASA Class: II Anesthesia Type: General
[2025-01-31] MEDS: CEFAZOLIN 2GM VIAL 2 GM (07:30)
[2025-01-31] MEDS: BUPIVACAINE 0.5% 30ML VIAL 150 MG (07:54)
--- NOTE | 2025-01-31 08:26 | P.OP_ITS ---
Date of procedure: 01/31/25 Pre-op Diagnosis:: Left fifth metatarsal Torres fracture Post-op Diagnosis:: Same Procedure performed:: Open reduction term fixation left fifth metatarsal fracture Surgeon:: Parmjit Silva DO Volunteer Services Manager(s):: Miguelangel JAVIER RUBBER TILE FLOOR LAYER:: Sergio Espinoza Anesthesia: GETA Estimated blood loss (mL): 5 Clinical Note:: Implants Arthrex 4.5 mm Torres fracture screw Operative findings:: See dictation Operative note:: Patient was identified preoperatively. The left leg marked with yes my initials. Transported operative suite placed upon operating bed. General anesthesia administered airway secured. Then the left lower extremity was prepped and draped in normal sterile fashion. Once prepped and draped final o perative timeout performed to identify proper patient procedure and extremity. Everyone involved in the case agreed. There is no counter indication to beginning. Patient did receive preoperative antibiotics X-ray was brought in to identify the Torres fracture fifth metatarsal. Looked at this on the AP and oblique and lateral views. K wire was used for marking bony landmarks and surgical lines were marked. Tourniquet was placed but not inflated throughout the procedure. Incision was made over the proximal aspect of the fifth metatarsal. Dissection was taken down to the base of the fifth metatarsal. Guidewire was then placed with proper trajectory based on the x- rays into the canal of the fifth metatarsal. Once the guidewire was then placed the x-ray was used on the AP lateral and oblique views to show proper placement of the guidewire. This was then overdrilled with a 3.5 drill and then tapped with the tap for the 4.5 millimeter screw. Depth gauge was used show size 50. Size 50 4.5 millimeter screw was then selected placed across the fracture site compression was obtained by tightening the screw this was directly visualize AP lateral and oblique views. Once the screw was in good position intramedullary canal and compressed irrigation was performed skin was closed with nylon stitch patient placed in a well-padded posterior splint and taken to recovery room in stable condition. Condition: stable Disposition: PACU Complications:: None apparent
--- NOTE | 2025-01-31 08:31 | EXP.ANES.I ---
[facility] Anesthesia Record Part I Anesthesia Record I Intake, IV Amount: 1,500 Hydration: Adequate Estimated blood loss (mL): 0 Urine output (mL): 0 Blood Pressure: 120/62 SaO2: 99 Pulse Rate: 82 Airway Patency: Patent Respiratory Rate: 16 Temperature: 98.5 F Patient is:: Awake and Stable Stable to PACU at:: 08:30
[2025-01-31] MEDS: MEPERIDINE 25MG/ML 1ML SYRINGE 25 MG IV (08:35)
[2025-01-31] MEDS: MORPHINE 2MG/ML SYRINGE 2 MG IV (08:50)
[2025-02-01 10:24] VITALS: BP 137/80; PULSE 74; RESP 16; TEMP 36.7; O2SAT 96
--- NOTE | 2025-02-01 10:24 | P.PNANES_ITS ---
[facility] Anesthesia Record Part II Anesthesia Record Part II Discharge Time: 09:31 Destination: Surgical Day Care (OP Surgery) PACU nurse assessment reviewed?: Yes Patient Condition:: Good Anesthesia Complications:: None Swallowing reflex intact?: Yes Airway Patency: Patent Cyanosis?: No Blood Pressure: 137/80 SaO2: 96 Respiratory Rate: 16 Pulse Rate: 74 Temperature: 98.1 F Mental Status: Alert & Oriented Pain level:: 0 Nausea and/or vomitting:: None Intake, IV Amount: 0 Hydration: Adequate
== END 2025-01-31 09:31 | disposition home or self-care (01) ==
PROVIDERS: PCP Family Medicine; Visit Provider Orthopaedic Surgery
PROC: (CPT 28485; principal; 2025-01-31 07:30)
DX: S92.352A Displaced fracture of fifth metatarsal bone, left foot, initial encounter for closed fracture (principal); F17.290 Nicotine dependence, other tobacco product, uncomplicated; W19.XXXA Unspecified fall, initial encounter; Z88.8 Allergy status to other drugs, medicaments and biological substances
CPT/HCPCS: 28485; 71046; 73620; 76000; 80048; 85025; C1713; J0665; J0690; J1100; J1885; J2003; J2175; J2250; J2270; J2405; J2704; J3010; J7120

== ENCOUNTER 2025-02-15 09:19 | Outpatient (CLI) | payer MEDICAID, SELFPAY ==
--- NOTE | 2025-02-15 09:22 | XR_ITS ---
FINAL REPORT CLINICAL HISTORY: left foot post op surgery jan 30 COMPARISON: 01/22/2025 FINDINGS: LEFT FOOT Three views of the left foot demonstrate an orthopedic screw at the base of the 5th metatarsal. There is no acute fracture or dislocation. The visualized joint spaces are normally aligned. The soft tissues are unremarkable. Overlying cast is noted. IMPRESSION: Postoperative changes without acute abnormality. Reviewed, Interpreted and Dictated by Mikey Rivera MD Transcribed by Joann Rider Authenticated and . [facility]
--- OUTSIDE RECORDS SUMMARY | 2025-02-15 10:25 | XMS_ITS | Clinical Summary ---
Author Organization Healthcare Address [address] [place] [address] Care Team Providers Care Mold Puller Name Role Phone Unavailable Primary Care Provider [...]
== END 2025-02-15 23:59 | disposition home or self-care (01) ==
LOC: RAD 09:19
PROVIDERS: PCP Family Medicine; Visit Provider Orthopaedic Surgery
DX: S99.192D Other physeal fracture of left metatarsal, subsequent encounter for fracture with routine healing (principal); X58.XXXD Exposure to other specified factors, subsequent encounter
CPT/HCPCS: 73630

== ENCOUNTER 2025-03-12 14:03 | Outpatient (RCR) | payer MEDICAID, SELFPAY ==
--- NOTE | 2025-03-12 14:48 | HMH.PTOPEV ---
PT Evaluation Rehab PT Outpatient Evaluation Start: 03/12/25 14:05 Freq: Status: Active Protocol: Document 03/12/25 14:05 KIKO (Rec: 03/12/25 14:48 CLAREYANELIKATERYNA [id number]) E-signed By Amari Hull, PT Outpatient Therapy Subjective History Subjective History Pt is a 49 yof who is referred to [facility] outpatient PT with reports of chronic neck pain. Pt reports that this pain has been ongoing for several years. Pt reports that this pain is isolated to her lower neck and is worse with twisting and looking down for long periods. Pt reports that this pain interferes with her ability to perform her daily activities. Pt reports that she is hoping to get an injection. She reports that he has had lumbar injections in the past, which have helped. She reports that she has not had a cervical injection before but is hoping that it will help. Pt reports difficulty with lifting, turning her head both directions, household activities. Occupation: Caregiver PMH: Prediabetes Chronic diarrhea Negative colorectal cancer screening using DNA-based stool test Screening for colon cancer Hypertriglyceridemia Bilateral lower extremity edema Abnormal electrocardiogram [ECG] [EKG] Screening for cervical cancer Breast cancer screening by mammogram Screening for breast cancer detention use of drug Hypertension New diagnosis of No cancer in past 12 months? Chief Complaint Pain,Stiff Symptom Type Ache,Sharp Symptoms Relieved By Ice,OTC Meds,Prescription Meds Symptoms Aggravated Standing,Lifting,Sneeze/Coughing By Prior Functional None Limitations Current Functional Lifting,Housework,Dressing Limitations Symptom Description Constant but Variable,Activity Dependent Level of pain today 5 (0-10) Pain scale - at its 5 best (0-10) Pain scale - at its 8 worst (0-10) Cervical Eval Palpation Cervical Muscles R Cervical Paraspinal,L Cervical Paraspinal,R CT Junction,L CT Junction Flexibility Deficits Upper Trapezius (R) Severe Tightness,(L) Severe Tightness Muscle Length Passive Joint Mobility Cervical PIVM Dec: R C6/7 L C6/7 R C7/T1 L C7/T1 AROM Cervical Spine 30 Extension Active Range of Motion ( degrees) Cervical Spine 10 Flexion Active Range of Motion (degrees) Cervical Spine Right 8 Lateral Flexion Active Range of Motion (degrees) Cervical Spine Left 10 Lateral Flexion Active Range of Motion (degrees) Cervical Spine Right 12 Rotation Active Range of Motion ( degrees) Cervical Spine Left 15 Rotation Active Range of Motion ( degrees) DTR Rt Biceps 1+ Lt Biceps 1+ Rt Brachioradialis 2+ Lt Brachioradialis 2+ Rt Triceps 1+ Lt Triceps 1+ Special Test C-Spine Foraminal Negative Left,Negative Right Compression ( [place]) Test C-spine Verterbral Central P/A Wheeler Accessory Movements that Elicit Symptoms C-Spine Foraminal Negative Distraction Test C-Spine Compression Negative Left,Negative Right Test C-Spine Swallowing Negative Left Test Shoulder Abduction Negative Left,Negative Right Relief Test Shoulder Brachial Negative Left,Negative Right Plexus Stretch Test Neck Disability Index Neck Disability Index Section 1: Pain The pain is moderate at the moment Intensity Section 2: Personal I can look after myself normally without causing extra Care (washing, pain dressing, etc.) Section 3: Lifting Pain prevents me from lifting heavy weights, but I can manage light to Section 4: Reading I can't read as much as I want because of moderate pain in my neck Section 5: Headaches I have moderate headaches, which come infrequently Section 6: I have a fair degree of difficulty in concentrating Concentration when I want to Section 7: Work I cannot do my usual work Section 8: Driving I can't drive my car at all Section 9: Sleeping My sleep is moderately disturbed (2-3 hrs. sleepless) Section 10: I am able to engage in all my recreation activities Recreation with some pain in NDI Score 24 Miscellaneous Dx PT Eval Objective Objective MMT: Rhomboids: 3/5 Outpatient Therapy Assessment Impairments Problems/ Palpation Tenderness,Impaired Range of Motion,Impaired Impairmments Strength,Impaired Lifting,Impaired Household Care, Subjective C/O Pain,Impaired Self Care/Self Management Prognosis Rehab Potential Good Comment w HEP compliance Clinical Impression Consistent with Yes Diagnosis Consistent with Neck pain w mobility deficits PT Patient Goals PT Patient Goals PT Short Term In 4 weeks: Patient Goals 1. Patient will report a 48 hour average pain of 5/10 on the numeric pain rating scale to demonstrate improvement in quality of life and increased functional capacity. 2. Patient will improve rhomboid strength upon manual muscle testing to 4/5 facilitate increased spinal stabilization, cervical support and improved functional capabilities. 3. Patient will demonstrate a reduction in trigger point sensitivity to Grade 2 with manual palpation to improve comfort during activity and soft tissue mobility. 4. Patient will improve cervical ROM by 5 degrees without pain in all planes to demonstrate improved movement patterns with functional mobility and ADLs. 5. Pt will demonstrate HEP compliance by completing prescribed HEP 4-5x/week. 6. Pt will improve NDI score to 20 to demonstrate improvement functional capabilities and improved QOL. PT Group Home Patient In 8 weeks: Goals 1. Patient will report a 48 hour average pain of 2-3/10 on the numeric pain rating scale to demonstrate improvement in quality of life and increased functional capacity. 2. Patient will improve rhomboid strength upon manual muscle testing to 4+/5 facilitate increased spinal stabilization and improved functional capabilities. 3. Patient will demonstrate a reduction in trigger point sensitivity to Grade 0-1 with manual palpation to improve comfort during activity and soft tissue mobility. 4. Patient will improve cervical ROM by 10-15 degrees, without pain, in all planes to demonstrate improved movement patterns with functional mobility and ADLs. 5. Pt will improve NDI score to 16 to demonstrate improvement functional capabilities and improved QOL. Outpatient Therapy Plan of Care Treatment Plan May Include Therapeutic Exercise Yes Including Home Exercise Program Manual Therapy Yes Techniques Neuromuscular Re- Yes education Therapeutic Yes Activities to Return to Previous Functional/Work Level Gait Training Yes Thermal Modalities Yes Electrical Yes Stimulation Ultrasound/ Yes Phonophoresis Iontophoresis Yes Massage Yes Manual Lymphatic Yes Drainage Eval/Re-Eval Yes Frequency Times per week 2 Duration Number of Weeks 6 Addendums This patient is a No candidate for social or vocational rehab ? Patient/Guardian Yes verbally acknowledges understanding of treatment program and consents to further treatment? Patient/Guardian Yes verbally acknowledges understanding of diagnosis, prognosis and goals for treatment? Eval Complexity PT Charges 19281 - High Complexity Shoulder/Elbow Eval Shoulder Objective Measurements Elbow Objective Measurements PHYSICIAN CERTIFICATION: I certify the specified therapy services for Delaney Orellana are required, authorized, and reviewed every 30 days.
== END 2025-03-12 23:59 | disposition home or self-care (01) ==
LOC: PT 14:03
PROVIDERS: PCP Family Medicine; Visit Provider Nurse Practitioner Family
DX: M50.30 Other cervical disc degeneration, unspecified cervical region (principal); M47.812 Spondylosis without myelopathy or radiculopathy, cervical region
CPT/HCPCS: 97163